=== PATIENT | male | born 1950 | race Hispanic/Latino ===

== ENCOUNTER 2021-09-28 11:17 | Inpatient (IN) | payer MEDICARE ==
--- NOTE | 2021-09-28 11:55 | Consultation ---
History of Present Illness Consult date: 09/28/21 History of present illness: [facility] Consult Note # Demographics Consult Type: Acute Stroke Level 1 (0-4.5 hrs) Patient Location: Emergency Room First Name: Satinder Last Name: Florentin Date of : 1950 Age: 71 Gender: Male Facility: [facility] Time of Initial Page (Eastern Time): 09/28/2021, 11:06 Time of Return Call (Eastern Time): 09/28/2021, 11:07 # HPI Chief Complaint: weakness (focal) History: Patient getting in shower, left leg weak, & fell, without trauma. Last Known Normal: I have collected independent history specific to time last normal or last known well. We have collaborated with the provider and at this time, we have the most current timeline with the information that is available. 9am Duration: constant hours Possible Thrombolytic candidate: not on warfarin or NOACs no intracranial hemorrhage history no recent major surgery Patient reported being non-compliant (not taking) prescribed anticoagulation in setting of atrial fibrillation Quality: weakness # Scores Time of exam and NIHSS ( Time): 09/28/2021, 11:13 Level of Consciousness 1a: [0] = Alert; keenly responsive LOC Questions 1b: [0] = Answers both questions correctly LOC Commands 1c: [0] = Performs both tasks correctly Best Gaze 2: [0] = Normal Visual 3: [0] = No visual loss Facial Palsy 4: [0] = Normal symmetrical movements Motor Arm Left 5a: [2] = Some effort against gravity Motor Arm Right 5b: [0] = No drift Motor Leg Left 6a: [4] = No movement Motor Leg Right 6b: [0] = No drift Limb Ataxia 7: [0] = Absent Sensory 8: [0] = Normal Best Language 9: [0] = No aphasia Dysarthria 10: [0] = Normal Extinction and Inattention 11: [0] = No abnormality NIHSS Total: 6 Modified Chelsie Scale (mRS) pre-stroke: [0] = No Symptoms Modified [place] Scale total: 0 VAN Screening: Negative # Exam SBP: 190 DBP: 107 Mental Status: awake alert and oriented x 3 follows commands Said month was September Language: normal speech Cranial Nerves: Cataracts # ROS Pulmonary: no shortness of breath Cardiovascular: no chest pain # PMH-FH-SH Past Medical History: A-fib Medications: aspirin non-compliant with medications # Data Glucose: [address] personally read by me ( Time): 09/28/2021, 11:[address]: no bleed preliminarily reviewed by me, please refer to radiology read for official reading # Assessment Impression: Ischemic Stroke (Acute) # Plan Thrombolytic/Intervention: IV thrombolytic and possible IA candidate Thrombolytic Dosing: IV alteplase 0.9 mg/kg, max dose 90 mg; 10% of dose given over 1 minute IVP, remaining 90% given as infusion over 1 hour Possible IA Candidate: CTA pending Time IV Thrombolytic Recommended ( Time): 09/28/2021, 11:31 Labs: CBC comprehensive metabolic panel ESR hemoglobin A1c lipid panel troponin TSH urine drug screen ua Imaging: (urgency: STAT): CT Angiogram Head and CT Angiogram Neck AND call back with results if abnormal Imaging: (urgency: routine): MRI Brain without contrast Diagnostic Test: echo without bubble study Therapy/Evaluation: NPO until swallow evaluation PT/OT evaluation speech/swallow consultation Medication: anticoagulation with NOAC start statin with goal of LDL < 70 DVT Prophylaxis: SCD chemical DVT prophylaxis Thrombolytic Administration Recommendations: I reviewed the risks/benefits/alternatives of IV thrombolytic therapy with the patient. They understand there is potential of life threatening hemorrhage from IV thrombolysis. I stated that I believe benefits outweighs risk. They wish to proceed with IV thrombolytic therapy. I have collected independent history specific to time last normal or last known well. We have collaborated with the ED provider and at this time, we have the most current timeline with the information that is available. BP goal< 180/105 for 24hrs post Thrombolytic administration Use Labetolol 10-20mg IV prn or Nicardipine gtt to maintain BP parameters No antiplatelets or anticoagulants for next 24 hrs unless indicated for emergent IA procedure or other life threatening situation Given the current persistent symptoms & reported lack of exclusion conditions, the risks & benefits of thrombolysis were discussed with the patient. Alteplase is FDA-approved for treating acute ischemic strokes & patients generally do better with treatment than without. Other: telemetry monitoring I have discussed my recommendations with the referring provider Disposition: admit Medications and Allergies Active Meds: Active Medications Labetalol HCl (Labetalol 20 Mg/4 Ml Inj) 20 mg IV ONCE ONE Stop: 09/28/21 11:40 Results - Laboratory Findings Abnormal Lab Findings: Abnormal Labs 09/28/21 11:20 POC Glucose 134 H
--- NOTE | 2021-09-28 12:01 | Cat Scan Report ---
CT HEAD WITHOUT CONTRAST INDICATION / CLINICAL INFORMATION: Stroke symptoms. TECHNIQUE: Axial imaging performed from the skull apex through the skull base without the use of cont rast. Sagittal and coronal reformatted images. All CT scans at this location are performed using CT dose reduction for ALARA by means of automated exposure control. COMPARISON: None available. FINDINGS: CEREBRAL PARENCHYMA: No acute parenchymal abnormality is detected. There is moderate diffuse volume l oss and chronic ischemic changes in the white matter. Focal chronic cortical infarct in the right fro ntal lobe measures 2 cm. Focal cortical infarct in the left occipital lobe measures 1.8 cm. HEMORRHAGE: None. EXTRA-AXIAL SPACES: Normal in size and morphology for the patient's age. VENTRICULAR SYSTEM: Normal in size and morphology for the patient's age. MIDLINE SHIFT OR HERNIATION: None. CEREBELLUM / BRAINSTEM: No significant abnormality. CALVARIUM: No significant abnormality. ORBITS: Normal as visualized. PARANASAL SINUSES / MASTOID AIR CELLS: Normal as visualized. SOFT TISSUES of HEAD: No significant abnormality. ADDITIONAL FINDINGS: None. IMPRESSION: No acute intracranial abnormality. Moderate volume loss and chronic white matter changes. Chronic foc al infarcts in the right frontal lobe and left occipital lobe. COMMUNICATION: Time of Communication (ORDERING MACHINE OPERATOR/CDT): 1054 Licensed Practitioner Receiving Report: Dr. Navarrete Signer Name: Burton Harvey Jr, MD Signed: 09/28/2021 11:56 AM Workstation Name: [id number]
--- NOTE | 2021-09-28 12:13 | Cat Scan Report ---
CTA neck without and with intravenous contrast material CLINICAL HISTORY: stroke sx TECHNIQUE: Following acquisition of a timing bolus 0.625 mm thick contiguous axial scans were obtained from aort ic arch to the skull base during rapid bolus intravenous contrast infusion. In addition to evaluation of axial source images multiplanar reconstructions were produced and reviewed for this report. 3 rosalee ne MIP reconstructions were produced and reviewed. Contrast dose report: Omnipaque 350: 100 ml, administered intravenously All CT examinations performed at this facility utilize modulated dose reduction, iterative reconstruc tion or weight-based dosing, as appropriate, to obtain a radiation dose which is as low as can reason ably be achieved. FINDINGS: Thoracic aorta:No abnormalities are identified along the course of the thoracic aorta..The origins of the great vessels have an unremarkable appearance. Brachiocephalic artery, left common carotid arter y origin and left subclavian artery all have an unremarkable appearance. Right carotid artery:No abnormalities are seen along the course of the RCCA, at the right carotid bif urcation or along the cervical portions of the DANIELA. Left carotid artery: No abnormalities are noted along the course of the left common carotid artery, a t the left carotid bifurcation or along the course of the cervical segments of the LICA. Posterior circulation:The vertebral arteries have an unremarkable appearance. Both vertebral arteries contribute to the basilar artery origin. The basilar artery has an unremarkable appearance. The degree of stenosis, if any, is determined utilizing NASCET like criteria. In this case there is no indication of hemodynamically significant stenosis at the carotid bifurcations or elsewhere. Evaluation of the nonvascular soft tissue structures reveal no abnormality. There is no indication of cervical lymphadenopathy. No abnormalities are seen along the course of the airway. Visualized porti ons of the parotid glands and the submandibular salivary glands have a normal appearance. Thyroid gla nd has a normal appearance. Evaluation of the lung apices reveals no evidence of lung nodule or infil trate. Evaluation of the cervical spine is remarkable for widespread cervical spondylosis. Prominent anterio r osteophyte formation is present at multiple levels. Posterior osteophyte is at the C3-4, C5-6 and C 6-7 levels. Facet and uncovertebral arthropathy are observed at multiple levels. There is no indicati on of central canal stenosis. Multifocal neuroforaminal narrowing is observed. IMPRESSION: 1. No indication of hemodynamically significant stenosis at the carotid bifurcations or elsewhere. CTA head with intravenous contrast CLINICAL HISTORY: stroke sx TECHNIQUE: 0.625 mm thick contiguous axial scans were obtained from the skull base to the skull vertex during r apid bolus administration of intravenous contrast material. Multiplanar reconstructions were produced in the coronal and sagittal planes. In addition 3 plane MIP instructions were produced and reviewed for this report. The axial source images and reconstructed images were reviewed for this report. CONTRAST DOSE REPORT: Blank: Contrast dose ml administered intravenously. All CT scans at this location are performed using CT dose reduction for ALARA by means of automated e xposure control. FINDINGS: Internal carotid arteries:Doreen, cavernous, opthalmic, clinoid and supraclinoid segments of the ICAs have an unremarkable appearance. Middle cerebral arteries:Normal and symmetrical M1 segments of the middle cerebral arteries are demon strated. No abnormalities are seen on evaluation of the insular or opercular branches. Anterior cerebral arteries:Bilaterally symmetrical A1 segments are demonstrated. No abnormalities are seen along the course of the A2 segments or their visualized pericallosal branches. An intact anteri or communicating artery is demonstrated. Vertebral arteries:Bilaterally symmetrical vertebral arteries are demonstrated. Both vertebral arteri es contribute to the basilar artery origin. Basilar artery:Basilar artery has an unremarkable appearance. Posterior cerebral arteries:Bilaterally symmetrical posterior cerebral arteries are identified. Post erior communicating arteries are not identified. [place] of [place]:Not intact. see above. Dural sinuses: Dural venous sinuses are well demonstrated on this exam. Large arachnoid granulations (pacchionian granulations) are present in the distal transverse sinuses. There is no evidence of dura l sinus thrombosis. IMPRESSION: 1. no evidence of intracranial stenosis or large vessel occlusion. Signer Name: Ruel Elliott MD Signed: 09/28/2021 12:09 PM Workstation Name: [employer]
[2021-09-28] MEDS ORDERED: ALTEPLASE 100 MG INJ KIT IV ONE ×2 (12:21)
[2021-09-28] MEDS ORDERED: SODIUM CHLORIDE 0.9% 50 ML IVPB IV ONE (12:21)
--- NOTE | 2021-09-28 12:41 | XRay Report ---
CHEST 1 VIEW 09/28/2021 12:07 PM INDICATION / CLINICAL INFORMATION: Dyspnea. COMPARISON: None available. FINDINGS: SUPPORT DEVICES: None. HEART / MEDIASTINUM: Mild cardiomegaly LUNGS / PLEURA: Trace left pleural effusion is identified. There is mild central pulmonary venous con gestion. No infiltrate or pneumothorax. ADDITIONAL FINDINGS: No significant additional findings. IMPRESSION: 1. Minimal CHF Signer Name: Burton Harvey Jr, MD Signed: 09/28/2021 12:36 PM Workstation Name: [id number]
[2021-09-28 12:53] LABS: Amphetamine Screen,Urine Negative; Benzodiazepines Screen,Urine Negative; Cannabinoid Screen,Urine Negative; Cocaine Screen,Urine Negative; Methadone Screen,Urine Negative; Opiate Screen,Urine Negative
[2021-09-28 12:57] LABS: Creatine Kinase MB 4.5 ng/mL (0.0-4.0)
[2021-09-28 13:01] LABS: Alanine Aminotransferase 13 units/L (7-56); Albumin 4.5 g/dL (3.9-5); BUN/Creatinine Ratio 24; Blood Urea Nitrogen 24 mg/dL (9-20); Calcium 9.6 mg/dL (8.4-10.2); Hemolysis Index 6
[2021-09-28 13:23] LABS: Basophils % (Auto) 0.5 % (0.0-1.8); Eosinophils # (Auto) 0.1 K/mm3 (0.0-0.4); Eosinophils % (Auto) 1.3 % (0.0-4.3); Hematocrit 41.7 % (35.5-45.6); Hemoglobin 13.8 gm/dl (11.8-15.2); Lymphocytes # (Auto) 0.7 K/mm3 (1.2-5.4); Lymphocytes % (Auto) 8.6 % (13.4-35.0); Mean Corpuscular HGB Conc 33 % (32-34); Mean Corpuscular Volume 97 fl (84-94); Monocytes # (Auto) 0.3 K/mm3 (0.0-0.8); Platelet Count 191 K/mm3 (140-440); Red Cell Distribution Width 13.8 % (13.2-15.2)
--- NOTE | 2021-09-28 13:28 | Emergency Department Report ---
ED General Adult HPI - General Chief complaint: Neuro Symptoms/Deficit Stated complaint: STROKE PUI?: No Time Seen by Provider: 09/28/21 11:18 Source: patient Mode of arrival: Ambulatory Limitations: No Limitations - History of Present Illness Initial comments: pt had left side weakness during shower today, he fell nut no heasd injury , previous CVs in past not on blood thinners , no recent surgery -: Sudden, hour(s) (2) Location: upper extremity, lower extremity Severity scale (0 -10): 0 Associated Symptoms: weakness. denies: denies other symptoms, confusion, chest pain, diaphoresis, headaches, loss of appetite, shortness of breath, syncope Treatments Prior to Arrival: none - Related Data Allergies Allergy/AdvReac Type Severity Reaction Status Date / Time No Known Allergies Allergy Unverified 09/28/21 11:57 ED Review of Systems ROS: Stated complaint: STROKE Other details as noted in HPI Constitutional: denies: chills, fever Eyes: denies: eye pain, eye discharge, vision change ENT: denies: ear pain, throat pain Respiratory: denies: cough, shortness of breath, wheezing Cardiovascular: denies: chest pain, palpitations Endocrine: no symptoms reported Gastrointestinal: denies: abdominal pain, nausea, diarrhea Genitourinary: denies: urgency, dysuria Musculoskeletal: denies: back pain, joint swelling, arthralgia Skin: denies: rash, lesions Neurological: denies: headache, weakness, paresthesias Psychiatric: denies: anxiety, depression Hematological/Lymphatic: denies: easy bleeding, easy bruising ED Past Medical Hx - Past Medical History Previous Medical History?: No Hx Hypertension: No - Social History Smoking Status: Never Smoker ED Physical Exam - General Limitations: No Limitations General appearance: alert, in no apparent distress - Head Head exam: Present: atraumatic, normocephalic - Eye Eye exam: Present: normal appearance - ENT ENT exam: Present: mucous membranes moist - Neck Neck exam: Present: normal inspection - Respiratory Respiratory exam: Present: normal lung sounds bilaterally. Absent: respiratory distress - Cardiovascular Cardiovascular Exam: Present: regular rate, normal rhythm. Absent: systolic murmur, diastolic murmur, rubs, gallop - GI/Abdominal GI/Abdominal exam: Present: soft, normal bowel sounds - Rectal Rectal exam: Present: deferred - Extremities Exam Extremities exam: Present: normal inspection - Back Exam Back exam: Present: normal inspection - Neurological Exam Neurological exam: Present: alert, oriented X3 - Expanded Neurological Exam Expanded Patient oriented to: Present: person, place, time Speech: Present: fluid speech Upper motor neuron: Brendan Neglect: Abnormal Left Sensory exam: Upper Extremity Light Touch: Abnormal Left, Lower Extremity Pin Prick: Abnormal Left Best Eye Response ([place]): (4) open spontaneously Best Motor Response ([place]): (6) obeys commands Best Verbal Response ([place]): (5) oriented [place] Total: 15 - Psychiatric Psychiatric exam: Present: normal affect, normal mood - Skin Skin exam: Present: warm, dry, intact, normal color. Absent: rash ED Course Vital Signs 09/28/21 09/28/21 09/28/21 11:58 12:10 12:15 Temperature 98.4 F Pulse Rate 87 79 Pulse Rate [ Left Arm] Respiratory 13 Rate Respiratory Rate [Left Arm] Blood Pressure 176/103 Blood Pressure [Left Arm] Blood Pressure 170/91 [Right] O2 Sat by Pulse 100 100 Oximetry O2 Sat by Pulse Oximetry [Left Arm] 09/28/21 09/28/21 09/28/21 12:44 13:06 13:08 Temperature Pulse Rate 82 Pulse Rate [ 78 81 Left Arm] Respiratory 15 Rate Respiratory 11 L 15 Rate [Left Arm] Blood Pressure Blood Pressure 163/100 173/88 [Left Arm] Blood Pressure 173/88 [Right] O2 Sat by Pulse 99 Oximetry O2 Sat by Pulse 99 99 Oximetry [Left Arm] ED Medical Decision Making - Lab Data Result diagrams: 09/28/21 11:57 09/28/21 11:57 - EKG Data -: EKG Interpreted by Nv EKG shows normal: sinus rhythm - EKG Data Interpretation: no acute changes - Radiology Data Radiology results: report reviewed, image reviewed - Medical Decision Making stroke protocol on arrival , head ct negative NIHSS score of 6 , TPA after BP control labetalol given , symtpoms imrpoving after TPA will admit , CTA negative for LVO Critical Care Time: Yes Critical care time in (mins) excluding proc time.: 55 Critical care attestation.: If time is entered above; I have spent that time in minutes in the direct care of this critically ill patient, excluding procedure time. ED Disposition Clinical Impression: CVA (cerebral vascular accident), Left-sided weakness Disposition: 09 ADMITTED INPATIENT Is pt being admited?: Yes Does the pt Need Aspirin: No Condition: Critical
[2021-09-28 13:36] LABS: INR 0.84 (0.87-1.13)
[2021-09-28 13:37] LABS: Partial Thromboplastin Time 28.6 Sec. (24.2-36.6); Thrombin Time 20.3 Sec. (15.1-19.6)
[2021-09-28] MEDS ORDERED: ALBUTEROL 2.5 MG/3 ML NEBU IH PRN (15:04)
[2021-09-28] MEDS ORDERED: PROMETHAZINE 25 MG RECT SUPP PR PRN (15:04)
[2021-09-28] MEDS ORDERED: ONDANSETRON 4 MG/2 ML INJ IV PRN (15:04)
[2021-09-28] MEDS ORDERED: ACETAMINOPHEN 325 MG TAB PO PRN (15:04)
[2021-09-28] MEDS ORDERED: METOCLOPRAMIDE 10 MG TAB PO PRN (15:04)
[2021-09-28] MEDS ORDERED: HYDROmorphone 0.5 MG/0.5 ML INJ IV PRN (15:04)
[2021-09-28] MEDS ORDERED: MAGNESIUM HYDROXIDE (MOM) ORAL LIQD UDC PO PRN (15:04)
[2021-09-28] MEDS ORDERED: oxyCODONE /ACETAMINOPHEN 5-325MG TAB PO PRN (15:04)
--- NOTE | 2021-09-28 15:04 | History and Physical Report ---
History of Present Illness Chief complaint: Mild left side is weak History of present illness: 71 YO Male with CVA presents ED for evaluation. Patient reports "my left side is weak". Patient states that he was in his usual state of health upon awakening from sleep this morning around 8 AM. Patient states that he was in the restroom conducting personal hygiene when he felt a sudden onset of left- sided weakness. Patient was unable to move his left side and subsequently fell to the ground. EMS was notified and upon arrival the patient was found to be in distress with a focal neurologic deficit. A code stroke was called and the patient was transported to [facility] for further care and evaluation of the aforementioned symptoms. The patient was seen and evaluated emergency department. All lab and imaging studies reviewed. Patient found to have clinical symptoms consistent with CVA and was within the therapeutic window for tPA. tPA was administered with in the emergency department with improvement in symptoms. Patient mated to ICU due to increased risk of worsening symptoms after medical stabilization. Critical care team consulted in ED. Patient denies fever, chills, chest pain, palpitation, adductive cough, skin rash, recent contact, known exposure to COVID-19. No prior admission for review. No medication listed at time of admission for reconciliation. Advanced care planning conducted in ED. Past History Past Medical History: stroke Past Surgical History: No surgical history, Other (Reviewed) Social history: . denies: smoking, alcohol abuse, prescription drug abuse Family history: hypertension Medications and Allergies Allergies Allergy/AdvReac Type Severity Reaction Status Date / Time No Known Allergies Allergy Unverified 09/28/21 11:57 Review of Systems Constitutional: no weight loss, no weight gain Ears, nose, mouth and throat: no ear pain, no tinnitis, no nose pain, no nasal discharge Cardiovascular: no chest pain, no palpitations, no rapid/irregular heart beat Respiratory: no cough, no cough with sputum, no hemoptysis, no dyspnea on exertion Gastrointestinal: no abdominal pain, no nausea, no vomiting, no constipation, no change in bowel habits, no hematemesis Genitourinary Male: no dysuria, no hematuria, no flank pain, no discharge, no urinary frequency Rectal: no pain, no incontinence, no bleeding Musculoskeletal: no neck stiffness, no arm numbness/tingling, no low back pain, no shooting leg pain Integumentary: no rash, no pruritis, no sores, no wounds, no jaundice, no blisters Neurological: paralysis, weakness, ataxia, balance difficulties, gait dysfunction, motor disturbance, no numbness, no seizures, no syncope Psychiatric: no anxiety, no memory loss, no sleep disturbances, no hypersomnia, no change in appetite Endocrine: no cold intolerance, no heat intolerance, no polyphagia, no excessive thirst, no polydipsia, no nocturia, no flushing Hematologic/Lymphatic: no easy bruising, no easy bleeding Allergic/Immunologic: no urticaria, no allergic rhinitis, no wheezing Exam - Constitutional Vitals: Temp Pulse Resp BP Pulse Ox 98.4 F 80 14 158/101 100 09/28/21 12:10 09/28/21 13:42 09/28/21 13:42 09/28/21 13:42 09/28/21 13:42 General appearance: Present: mild distress - EENT Eyes: Present: PERRL ENT: hearing intact, clear oral mucosa - Neck Neck: Present: supple, normal ROM - Respiratory Respiratory effort: normal Respiratory: bilateral: CTA - Cardiovascular Heart Sounds: Present: S1 & S2. Absent: rub, click - Extremities Extremities: pulses symmetrical, No edema Peripheral Pulses: within normal limits - Abdominal General gastrointestinal: Present: soft, non-tender, non-distended, normal bowel sounds Male genitourinary: Present: normal - Integumentary Integumentary: Present: clear, warm, dry - Musculoskeletal Musculoskeletal: gait normal, strength equal bilaterally - Psychiatric Psychiatric: appropriate mood/affect, intact judgment & insight - Neurologic Neurologic: focal deficits, no moves all extremities, no gait normal HEART Score - HEART Score Troponin: Troponin T < 0.010 ng/mL (0.00-0.029) 09/28/21 11:57 Results - Labs CBC & Chem 7: 09/28/21 11:57 09/28/21 11:57 Labs: Abnormal lab results 09/28/21 09/28/21 09/28/21 Range/Units 11:20 11:57 11:57 MCV 97 H (84-94) fl Lymph % (Auto) 8.6 L (13.4-35.0) % Lymph # (Auto) 0.7 L (1.2-5.4) K/mm3 Seg Neutrophils % 85.6 H (40.0-70.0) % INR 0.84 L (0.87-1.13) Thrombin Time 20.3 H (15.1-19.6) Sec. BUN (9-20) mg/dL Glucose (75-100) mg/dL POC Glucose 134 H (70-105) mg/dL CK-MB (CK-2) (0.0-4.0) ng/mL 09/28/21 Range/Units 11:57 MCV (84-94) fl Lymph % (Auto) (13.4-35.0) % Lymph # (Auto) (1.2-5.4) K/mm3 Seg Neutrophils % (40.0-70.0) % INR (0.87-1.13) Thrombin Time (15.1-19.6) Sec. BUN 24 H (9-20) mg/dL Glucose 157 H (75-100) mg/dL POC Glucose (70-105) mg/dL CK-MB (CK-2) 4.5 H (0.0-4.0) ng/mL Assessment and Plan - Patient Problems (1) CVA (cerebral vascular accident) Status: Acute Plan to address problem: CVA protocol: CTA, neuro check, seizure precautions, physical therapy consulted, Occupational Therapy consulted, speech therapy consulted, teleneurology consulted, patient administered tPA in the emergency department. Patient admitted to ICU, critical care team consulted, antiplatelet therapy may be resumed 24 hours after tPA, lipid panel, statin therapy. The high probability of a clinically significant, sudden or life threatening deterioration of the [neuro,] system(s) required my full and direct attention, intervention and personal management. The aggregate critical care time was [95] minutes. This time is in addition to time spent performing reported procedures but includes the following: [x] Data Review and interpretation [x] Patient assessment and monitoring of vital signs [x] Documentation [x] Medication orders and management (2) Left hemiparesis Status: Acute Plan to address problem: Physical therapy consulted, supportive care. (3) DVT prophylaxis Status: Acute Plan to address problem: SCDs bilateral lower extremities while in bed (4) Advance care planning Status: Acute Plan to address problem: Disease education conducted, care plan discussed, diagnoses discussed, prognosis discussed, patient is full code. Patient knowledges understanding agreement with care plan, +30 minutes. (5) Preventative health care Status: Acute Plan to address problem: Patient counseled on risk factor reduction, low-cholesterol diet, outpatient follow-up with primary care physician for all age and risk factor appropriate screening test. +30 minutes.
[2021-09-28 15:07] LABS: Color,Urine Yellow (Yellow)
[2021-09-28 15:08] LABS: Bilirubin,Urine Negative (Negative); Protein,Urine <15 mg/dL mg/dL (Negative)
[2021-09-28 15:09] LABS: Blood,Urine 2+ (Negative)
--- NOTE | 2021-09-28 17:31 | Vascular Lab Report ---
DUPLEX DOPPLER ULTRASOUND CAROTID, BILATERAL INDICATION / CLINICAL INFORMATION: stroke. COMPARISON: None available. FINDINGS: RIGHT CAROTID: - PLAQUE ESTIMATE (%): < 50% - CCA velocity: 80 cm/sec. - ICA peak systolic velocity: 78 cm/sec. - ICA/CCA PSV Ratio: Less than 2.0 Right Vertebral Artery: Antegrade flow. LEFT CAROTID: - PLAQUE ESTIMATE (%): < 50% - CCA velocity: 82 cm/sec. - ICA peak systolic velocity: 83 cm/sec. - ICA/CCA PSV Ratio: Less than 2.0 Left Vertebral Artery: Antegrade flow. IMPRESSION: 1. Right Internal Carotid Artery: Less than 50% diameter stenosis. 2. Left Internal Carotid Artery: Less than 50% diameter stenosis. Velocity criteria are extrapolated from diameter data as defined by the Society of Radiologists in Ul trasound Consensus Conference, Radiology 2003; 229;340-346. NO STENOSIS (NORMAL) - Plaque = none; ICA PSV < 125 cm/sec; ICA/CCA PSV Ratio < 2.0 <50% STENOSIS - Plaque < 50%; ICA PSV < 125 cm/sec; ICA/CCA PSV Ratio < 2.0 50-69% STENOSIS - Plaque > 50%; ICA PSV = 125-230 cm/sec; ICA/CCA PSV Ratio = 2.0-4.0 >70% BUT <100% STENOSIS - Plaque > 50%; ICA PSV > 230 cm/sec; ICA/CCA PSV Ratio > 4.0 NEAR OCCLUSION - Plaque = visible lumen; ICA PSV = high/low/none; ICA/CCA PSV Ratio = variable TOTAL OCCLUSION - Plaque = no lumen; ICA PSV = none; ICA/CCA PSV Ratio = N/A Signer Name: Andriy Altman MD Signed: 09/28/2021 5:27 PM Workstation Name: [id number]
[2021-09-29 05:10] LABS: Chol/HDL Ratio 3.15 %
--- NOTE | 2021-09-29 08:26 | Consultation ---
History of Present Illness Consult date: 09/29/21 Reason for Consult: CVA Chief complaint: Left-sided Weakness History of present illness: 71 yo male with afib (not on anticoagulation), htn, dm, dyslipidemia, bilateral cataracts, who woke up yesterday morning feeling fine but while taking a shower, suffered acute onset of left-sided weakness associated with a slight fall (w/o trauma). He came off those coumadin and aspirin 2 months ago due to side effects. He was evaluated by telestroke neurology and IV-TPA given. Patient started to notice improvement in his symptoms post-TPA. Past History Past Medical History: atrial fib, stroke Past Surgical History: No surgical history, Other (Reviewed) Social history: . denies: smoking, alcohol abuse, prescription drug abuse Family history: hypertension Medications and Allergies Allergies Allergy/AdvReac Type Severity Reaction Status Date / Time No Known Allergies Allergy Unverified 09/28/21 11:57 Active Meds: Active Medications Acetaminophen (Acetaminophen 325 Mg Tab) 650 mg PO Q4H PRN PRN Reason: Pain, Mild (1-3) Albuterol (Albuterol 2.5 Mg/3 Ml Nebu) 2.5 mg IH Q3H PRN PRN Reason: Shortness Of Breath Aspirin (Aspirin 325 Mg Tab) 325 mg PO QDAY [facility] Atorvastatin Calcium (Atorvastatin 40 Mg Tab) 40 mg PO QHS [facility] Last Admin: 09/29/21 00:00 Dose: Not Given Bisacodyl (Bisacodyl 10 Mg Rect Supp) 10 mg NV QDAY PRN PRN Reason: Constipation Enoxaparin Sodium (Enoxaparin 40 Mg/0.4 Ml Inj) 40 mg SUB-Q QHS [facility]; Protocol Famotidine (Famotidine 20 Mg Tab) 20 mg PO QDAY [facility] Hydromorphone HCl (Hydromorphone 0.5 Mg/0.5 Ml Inj) 0.5 mg IV Q23H PRN PRN Reason: Pain , Severe (7-10) Magnesium Hydroxide (Magnesium Hydroxide (Mom) Oral Liqd Udc) 30 ml PO Q4H PRN PRN Reason: Constipation Metoclopramide HCl (Metoclopramide 10 Mg Tab) 10 mg PO Q6H PRN PRN Reason: Nausea And Vomiting Ondansetron HCl (Ondansetron 4 Mg/2 Ml Inj) 4 mg IV Q8H PRN PRN Reason: Nausea And Vomiting Oxycodone/Acetaminophen (Oxycodone /Acetaminophen 5-325mg Tab) 1 tab PO Q16H PRN PRN Reason: Pain, Moderate (4-6) Promethazine HCl (Promethazine 25 Mg Rect Supp) 25 mg NV Q6H PRN PRN Reason: Nausea And Vomiting Sodium Chloride (Sodium Chloride 0.9% 10 Ml Flush Syringe) 10 ml IV PRN PRN PRN Reason: LINE FLUSH Review of Systems All systems: negative (as per hpi;) Physical Examination - Vital Signs Vital Signs: Vital Signs Pulse Ox 99 09/28/21 11:46 - Physical Exam Narrative exam: Gen: nad, well-nourished; Head: normocephalic; Eyes: no gaze deviation; no ptosis; ENT: normal vocalization; CVS: warm and well-perfused; Pulm: no respiratory distress; GI: appears non-distended; Ext: no cyanosis appreciated at distal extremities; Skin: no acute rash at distal extremities; Heme: no pathologic ecchymosis appreciated at distal extremities; Neuro: alert, oriented to name, age, month, year, surroundings, no dysarthria, no aphasia, CN 2 - PERRL, visual chaney grossly intact, CN 3, 4, 6 - EOMI, CN 5 - facial sensation symmetric to light touch, CN 7 - facial movement symmetric, CN 8 - hearing grossly intact, CN 9, 10 - uvula midline, CN 11 symmetric shoulder movement, CN 12 - tongue midline; Motor - at least 4+/5 at right exts; at least 4-/5 at left exts w/ plantar flexion weaker than ankle dorsiflexion; Sensory - light touch symmetric, Cerebellar - fnf /hts intact on right with some minor limits with the left fnf due to weakness, Gait - deferred secondary to fall risk; NIHSS (1a.) Level of Consciousness:0 (1b.) LOC Questions:0 (1c.) LOC Commands:0 (2.) Best Gaze:0 (3.) Visual:0 (4.) Facial Palsy:0 (5a.) Motor Arm, Left:1 (5b.) Motor Arm, Right:0 (6a.) Motor Leg, Left:1 (6b.) Motor Leg, Right:0 (7.) Limb Ataxia:0 (8.) Sensory:0 (9.) Best Language:0 (10.) Dysarthria:0 (11.) Extinction and Inattention:0 NIHSS Total Score: 2 Results - Laboratory Findings CBC and BMP: 09/28/21 11:57 09/28/21 11:57 Abnormal Lab Findings: Abnormal Labs 09/28/21 09/28/21 09/28/21 11:20 11:57 11:57 MCV 97 H Lymph % (Auto) 8.6 L Lymph # (Auto) 0.7 L Seg Neutrophils % 85.6 H INR 0.84 L Thrombin Time 20.3 H BUN Glucose POC Glucose 134 H CK-MB (CK-2) 09/28/21 11:57 MCV Lymph % (Auto) Lymph # (Auto) Seg Neutrophils % INR Thrombin Time BUN 24 H Glucose 157 H POC Glucose CK-MB (CK-2) 4.5 H Assessment and Plan 71 yo male with afib (not on anticoagulation), htn, dm, dyslipidemia, bilateral cataracts, who woke up yesterday morning feeling fine but while taking a shower, suffered acute onset of left-sided weakness associated with a slight fall (w/o trauma). Post-TPA. 1. Acute Ischemic Stroke: post-TPA protocol; avoid blood thinners for the first 24 hrs and if repeat imaging at 24-hrs is normal, then initiate Plavix 75 mg PO qday, (pt has indigestion w/ aspirin); MRI Brain w/o contrast, TTEcho, confirm TSH/Covid-19/UDS, telemetry, NIHSS q4 hours; SBP goal 160-180 mmHg and DBP 80-105 mmHg for now. Statin therapy for a goal LDL of 70, when patient passes swallow evaluation. PT/OT/ST/Swallow evaluation. Long-term risk-factor modification, including a strict diet/exercise regimen for secondary stroke prophylaxis. Stroke education prior to discharge. 2. Afib - long-term anticoagulation (?valvular afib vs. non-valvular afib - cardiology input needed) for secondary stroke prophylaxis, if no contraindications; otherwise, recommend the Watchman device. 3. Hypertension - post-TPA protocol parameters. 4. DM - maintain euglycemia. 5. Dyslipidemia - goal LDL of 70 w/ statin therapy if no contraindications. 6. Acute Left Hemiparesis - pt/ot evaluation/monitoring. 7. Unsteady Gait - pt/ot evaluation/monitoring. Glenn Fragoso MD Neurology [id number]
--- NOTE | 2021-09-29 09:18 | Consultation ---
History of Present Illness Consult date: 09/29/21 Requesting physician: JONELLE LOU Reason for consult: other (Acute CVA s/p tPA) History of present illness: This is a 71-year-old male with known past medical history of HTN, DM, HLD, bilateral cataracts, and paroxysmal afib noncompliant with AC, and previous stroke admitted for Acute CVA s/p tPA. Critical care consult was placed for monitoring post tPA. Patient seen and examined. Vitals, labs, medications, chart and imaging reviewed. Has emotional lability with episodes when he is teary. Past History Past Medical History: atrial fib, stroke Past Surgical History: No surgical history, Other (Reviewed) Social history: . denies: smoking, alcohol abuse, prescription drug abuse Family history: hypertension Medications and Allergies Allergies Allergy/AdvReac Type Severity Reaction Status Date / Time No Known Allergies Allergy Unverified 09/28/21 11:57 Active Meds: Active Medications Acetaminophen (Acetaminophen 325 Mg Tab) 650 mg PO Q4H PRN PRN Reason: Pain, Mild (1-3) Albuterol (Albuterol 2.5 Mg/3 Ml Nebu) 2.5 mg IH Q3H PRN PRN Reason: Shortness Of Breath Aspirin (Aspirin 325 Mg Tab) 325 mg PO QDAY [facility] Atorvastatin Calcium (Atorvastatin 40 Mg Tab) 40 mg PO QHS [facility] Last Admin: 09/29/21 00:00 Dose: Not Given Bisacodyl (Bisacodyl 10 Mg Rect Supp) 10 mg VA QDAY PRN PRN Reason: Constipation Enoxaparin Sodium (Enoxaparin 40 Mg/0.4 Ml Inj) 40 mg SUB-Q QHS [facility]; Protocol Famotidine (Famotidine 20 Mg Tab) 20 mg PO QDAY [facility] Hydromorphone HCl (Hydromorphone 0.5 Mg/0.5 Ml Inj) 0.5 mg IV Q23H PRN PRN Reason: Pain , Severe (7-10) Magnesium Hydroxide (Magnesium Hydroxide (Mom) Oral Liqd Udc) 30 ml PO Q4H PRN PRN Reason: Constipation Metoclopramide HCl (Metoclopramide 10 Mg Tab) 10 mg PO Q6H PRN PRN Reason: Nausea And Vomiting Ondansetron HCl (Ondansetron 4 Mg/2 Ml Inj) 4 mg IV Q8H PRN PRN Reason: Nausea And Vomiting Oxycodone/Acetaminophen (Oxycodone /Acetaminophen 5-325mg Tab) 1 tab PO Q16H PRN PRN Reason: Pain, Moderate (4-6) Promethazine HCl (Promethazine 25 Mg Rect Supp) 25 mg VA Q6H PRN PRN Reason: Nausea And Vomiting Sodium Chloride (Sodium Chloride 0.9% 10 Ml Flush Syringe) 10 ml IV PRN PRN PRN Reason: LINE FLUSH Review of Systems Constitutional: no weight loss, no weight gain, no fever, no chills Eyes: bilateral: other (cataracts) Cardiovascular: no chest pain, no orthopnea, no palpitations, no edema, no syncope, no shortness of breath Respiratory: no cough, no cough with sputum, no hemoptysis, no shortness of breath, no dyspnea on exertion Gastrointestinal: no nausea, no vomiting, no diarrhea Genitourinary Male: no dysuria, no hematuria, no nocturia Musculoskeletal: leg numbness/tingling Neurological: paralysis, weakness, numbness, no head injury Physical Examination Vital signs: Vital Signs Pulse Ox 99 09/28/21 11:46 General appearance: no acute distress, alert Eyes: non-icteric ENT: oropharynx moist Neck: supple, no lymphadenopathy, no JVD Effort: normal Ascultation: Bilateral: clear, diminished breath sounds Cardiovascular: regular rate and rhythm, other (S1,S2) Gastrointestinal: normoactive bowel sounds, soft, non-tender Integumentary: normal Extremities: no cyanosis, no edema, pink and warm, pulses normal normal mental status, pupils equal and round, CN II-XII normal, other (Power grade 3/5 left lower extremity, Power grade 4/5 left upper extremity) mood appropriate, tearful Results - Laboratory Findings CBC and BMP: 09/30/21 04:18 09/30/21 04:18 PT/INR, D-dimer PT 12.6 Sec. (12.2-14.9) 09/28/21 11:57 INR 0.84 (0.87-1.13) L 09/28/21 11:57 Abnormal lab findings: Abnormal Labs 09/28/21 09/28/21 09/28/21 11:20 11:57 11:57 MCV 97 H Lymph % (Auto) 8.6 L Lymph # (Auto) 0.7 L Seg Neutrophils % 85.6 H INR 0.84 L Thrombin Time 20.3 H BUN Glucose POC Glucose 134 H CK-MB (CK-2) 09/28/21 09/29/21 11:57 08:15 MCV Lymph % (Auto) Lymph # (Auto) Seg Neutrophils % INR Thrombin Time BUN 24 H Glucose 157 H POC Glucose 119 H CK-MB (CK-2) 4.5 H - Diagnostic Findings Chest x-ray: image reviewed (No acute pulmonary disease) Assessment and Plan CVA (Cerebral Vascular Accident) s/p tPA Left Hemiparesis H/o Paroxysmal Atrial Fibrillation Hypertension Hyperlipidemia Type 2 Diabetes Mellitus with Hyperglycemia -MRI Brain without contrast today -Echo -NPO until swallow evaluation -PT/OT to evaluate and treat -Start statin with goal of LDL < 70 -SCD; chemical DVT prophylaxis, after 24 hours of tPA administration -BP goal< 180/105 for 24hrs post Thrombolytic administration - Labetolol 10-20mg IV prn or Nicardipine infusion to maintain BP parameters -No antiplatelets or anticoagulants for 24 hrs post tPA administration -Accucheck with glycemic control, target blood glucose to keep glucose 140- 180mg/dL -Discussed the need for compliance to recommended therapies. Patient had been off Coumadin for over 2 months. -Secondary stroke prophylaxis -Replete electrolytes as clinically indicated- keep potassium greater than 3.5, Magnesium 2 The high probability of a clinically significant, sudden or life threatening deterioration of the neurology and cardiovascular systems required my full and direct attention, intervention and personal management. The aggregate critical care time was [34] minutes. This time is in addition to time spent performing reported procedures but includes the following: [x] Data Review and interpretation [x] Patient assessment and monitoring of vital signs [x] Documentation [x] Medication orders and management
[2021-09-29] MEDS ORDERED: ASPIRIN 325 MG TAB PO SCH (10:00)
[2021-09-29] MEDS: FAMOTIDINE 20 MG TAB PO SCH (10:10)
--- NOTE | 2021-09-29 11:14 | Progress Note ---
<NUNU MASON - Last Filed: 09/29/21 16:51> Assessment and Plan Assessment and plan: This is a 71-year-old male with known past medical history of HTN, DM, HLD, bilateral cataracts, and paroxysmal afib noncompliant with AC, and previous stroke admitted for Acute CVA s/p tPA Hospital Course to Date: 09/29: Symptoms improved post IV tPA, still with mild left-sided weakness. VSS. Plan for repeat CT head/brain At 1500, 24hrs post tPA. 2D echo and MRI brain pending. Neurology recommendations noted and appreciated. If CT head stable will initiate ASA and VTE proph in the am. PT/OT/Speech consulted. Assessment and Plan #CVA (Cerebral Vascular Accident) s/p tPA #Left Hemiparesis - Presented with sudden onsent eft-side weakness and paralysis - TeleNeurology saw patient in the ED, S/p tPA - Symptoms improved post tPA, remains with mild left-sided weakness - Plan for repeat CT head/brain At 1500 24hrs post tPA - MRI brain and 2D Echo pending - Lipid panel noted, hgbA1c ordered - Statin initiated - Neurology consulted, appreciated recommendations - ASA and prophy AC to start tomorrow, 24hrs post TPA - Continue Neuro check per protocol - PT/OT/Speech ordered - Aspiration and Fall precautions - Of note, patient has history of coumadin was on coumadin at home. - Per patient he needs cataracts surgery and he can't get it due to AC, so he stop taking his coumadin without coordinating with his MDs. Per patient he has not taking his AC for at least 2 months #H/o Paroxysmal Atrial Fibrillation #Hypertension & Hyperlipidemia - SR noted on the monitor, HR in the 70 -80, BP stable - Allow permissive HTN for first 24hrs, hold antihypertensive for now - Continue blood pressure monitor per protocol, BP goal SBP less than 190 - Noncompliant with coumadin, per patient he has not taking meds for at least 2 months - Resume home coumadin once okayed by Neurology - Plan to initiate ASA and VTE proph tomorrow #Type 2 Diabetes Mellitus with Hyperglycemia - HgbA1c pending - BG check and SSI ACHS - Avoid hypoglycemia #GI/DVT Prophylaxis - PPI- Pepcid - SCDs bilateral lower extremities while in bed #Advance Care Planning - Disease education data, care plan, diagnoses, and prognosis were discussed with patient at the bedside. Patient is a FULL code. Patient acknowledged understanding and agreed with current care plan. The high probability of a clinically significant, sudden or life threatening deterioration of the [multiple] system(s) required my full and direct attention, intervention and personal management. The aggregate critical care time was [60] minutes. This time is in addition to time spent performing reported procedures but includes the following: [x] Data Review and interpretation [x] Patient assessment and monitoring of vital signs [x] Documentation [x] Medication orders and management Disposition Plan: ICU Total Time Spent with Patient (Minutes): 60 History Interval history: Patient seen and examined at the bedside. Fully AAO, on RA, denied any pain nor any discomfort at this time. Left-sided weakness noted, but per patient symptoms has improved a lot. He couldn't move his left side before tPA. SR noted on the monitor, HR in the 70-80, VSS. JASON overnight Hospitalist Physical - Constitutional Vitals: Temp Pulse Resp BP Pulse Ox 98 F 81 11 L 152/101 97 09/29/21 08:00 09/29/21 09:46 09/29/21 09:46 09/29/21 09:46 09/29/21 11:11 General appearance: Present: no acute distress, well-nourished - EENT Eyes: Present: PERRL, EOM intact ENT: hearing intact, clear oral mucosa - Neck Neck: Present: normal ROM - Respiratory Respiratory effort: normal Respiratory: bilateral: CTA - Cardiovascular Rhythm: regular Heart Sounds: Present: S1 & S2 - Extremities Extremities: no ischemia, pulses intact, pulses symmetrical Peripheral Pulses: within normal limits - Abdominal General gastrointestinal: soft, non-distended, normal bowel sounds - Integumentary Integumentary: Present: clear, warm, dry - Psychiatric Psychiatric: appropriate mood/affect, cooperative - Neurologic Neurologic: CNII-XII intact, moves all extremities (Left-sided weakness present) - Allied Health Allied health notes reviewed: nursing, case management HEART Score - HEART Score Troponin: Troponin T < 0.010 ng/mL (0.00-0.029) 09/28/21 11:57 Results - Labs CBC & Chem 7: 09/28/21 11:57 09/28/21 11:57 Labs: Laboratory Last Values WBC 8.3 K/mm3 (4.5-11.0) 09/28/21 11:57 RBC 4.30 M/mm3 (3.65-5.03) 09/28/21 11:57 Hgb 13.8 gm/dl (11.8-15.2) 09/28/21 11:57 Hct 41.7 % (35.5-45.6) 09/28/21 11:57 MCV 97 fl (84-94) H 09/28/21 11:57 MCH 32 pg (28-32) 09/28/21 11:57 MCHC 33 % (32-34) 09/28/21 11:57 RDW 13.8 % (13.2-15.2) 09/28/21 11:57 Plt Count 191 K/mm3 (140-440) 09/28/21 11:57 Lymph % (Auto) 8.6 % (13.4-35.0) L 09/28/21 11:57 [place] % (Auto) 4.0 % (0.0-7.3) 09/28/21 11:57 Eos % (Auto) 1.3 % (0.0-4.3) 09/28/21 11:57 Baso % (Auto) 0.5 % (0.0-1.8) 09/28/21 11:57 Lymph # (Auto) 0.7 K/mm3 (1.2-5.4) L 09/28/21 11:57 [place] # (Auto) 0.3 K/mm3 (0.0-0.8) 09/28/21 11:57 Eos # (Auto) 0.1 K/mm3 (0.0-0.4) 09/28/21 11:57 Baso # (Auto) 0.0 K/mm3 (0.0-0.1) 09/28/21 11:57 Seg Neutrophils % 85.6 % (40.0-70.0) H 09/28/21 11:57 Seg Neutrophils # 7.1 K/mm3 (1.8-7.7) 09/28/21 11:57 PT 12.6 Sec. (12.2-14.9) 09/28/21 11:57 INR 0.84 (0.87-1.13) L 09/28/21 11:57 APTT 28.6 Sec. (24.2-36.6) 09/28/21 11:57 Thrombin Time 20.3 Sec. (15.1-19.6) H 09/28/21 11:57 Sodium 141 mmol/L (137-145) 09/28/21 11:57 Potassium 3.8 mmol/L (3.6-5.0) 09/28/21 11:57 Chloride 102.0 mmol/L (98-107) 09/28/21 11:57 Carbon Dioxide 23 mmol/L (22-30) 09/28/21 11:57 Anion Gap 20 mmol/L 09/28/21 11:57 BUN 24 mg/dL (9-20) H 09/28/21 11:57 Creatinine 1.0 mg/dL (0.8-1.3) 09/28/21 11:57 Estimated GFR > 60 ml/min 09/28/21 11:57 BUN/Creatinine Ratio 24 % 09/28/21 11:57 Glucose 157 mg/dL (75-100) H 09/28/21 11:57 POC Glucose 119 mg/dL (70-105) H 09/29/21 08:15 Calcium 9.6 mg/dL (8.4-10.2) 09/28/21 11:57 Total Bilirubin 0.70 mg/dL (0.1-1.2) 09/28/21 11:57 AST 18 units/L (5-40) 09/28/21 11:57 ALT 13 units/L (7-56) 09/28/21 11:57 Alkaline Phosphatase 74 units/L (35-129) 09/28/21 11:57 Total Creatine Kinase 136 units/L (55-170) 09/28/21 11:57 Total Creatine Kinase 137 units/L (55-170) 09/28/21 11:57 CK-MB (CK-2) 4.5 ng/mL (0.0-4.0) H 09/28/21 11:57 CK-MB (CK-2) Rel Index 3.3 (0-4) 09/28/21 11:57 Troponin T < 0.010 ng/mL (0.00-0.029) 09/28/21 11:57 NT-Pro-B Natriuret Pep 781.0 pg/mL (0-900) 09/28/21 11:57 Total Protein 7.2 g/dL (6.3-8.2) 09/28/21 11:57 Albumin 4.5 g/dL (3.9-5) 09/28/21 11:57 Albumin/Globulin Ratio 1.7 % 09/28/21 11:57 Triglycerides 136 mg/dL (2-149) 09/29/21 04:16 Cholesterol 164 mg/dL (50-199) 09/29/21 04:16 LDL Cholesterol Direct 96 mg/dL (50-130) 09/29/21 04:16 HDL Cholesterol 52 mg/dL (40-59) 09/29/21 04:16 Cholesterol/HDL Ratio 3.15 % 09/29/21 04:16 Urine Color Yellow (Yellow) 09/28/21 12:10 Urine Turbidity Clear (Clear) 09/28/21 12:10 Urine pH 5.0 (5.0-7.0) 09/28/21 12:10 Ur Specific [place] 1.015 (1.003-1.030) 09/28/21 12:10 Urine Protein <15 mg/dl mg/dL (Negative) 09/28/21 12:10 Urine Glucose (UA) 1.015 mg/dL (Negative) 09/28/21 12:10 Urine Ketones Negative mg/dL (Negative) 09/28/21 12:10 Urine Blood 2+ (Negative) 09/28/21 12:10 Urine Nitrite Negative (Negative) 09/28/21 12:10 Urine Bilirubin Negative (Negative) 09/28/21 12:10 Urine Urobilinogen 0.0 mg/dL (<2.0) 09/28/21 12:10 Ur Leukocyte Esterase Negative (Negative) 09/28/21 12:10 Urine WBC (Auto) 2.0 /HPF (0.0-6.0) 09/28/21 12:10 Urine RBC (Auto) 1.0 /HPF (0.0-6.0) 09/28/21 12:10 U Epithel Cells (Auto) 1.0 /HPF (0-13.0) 09/28/21 12:10 Urine Opiates Screen Negative 09/28/21 12:10 Urine Methadone Screen Negative 09/28/21 12:10 Ur Barbiturates Screen Negative 09/28/21 12:10 Ur Phencyclidine Scrn Negative 09/28/21 12:10 Ur Amphetamines Screen Negative 09/28/21 12:10 U Benzodiazepines Scrn Negative 09/28/21 12:10 Urine Cocaine Screen Negative 09/28/21 12:10 U Marijuana (THC) Screen Negative 09/28/21 12:10 Drugs of Abuse Note Disclamer 09/28/21 12:10 Active Medications - Current Medications Current Medications: Generic Name Dose Route Start Last Admin Trade Name Freq PRN Reason Stop Dose Admin Acetaminophen 650 mg 09/28/21 15:04 Acetaminophen 325 Mg Tab PO Q4H PRN Pain, Mild (1-3) Albuterol 2.5 mg 09/28/21 15:04 Albuterol 2.5 Mg/3 Ml Nebu IH Q3H PRN Shortness Of Breath Aspirin 325 mg 09/30/21 10:00 Aspirin 325 Mg Tab PO QDAY [facility] Atorvastatin Calcium 40 mg 09/28/21 22:00 09/29/21 00:00 Atorvastatin 40 Mg Tab PO Not Given QHS [facility] Bisacodyl 10 mg 09/28/21 15:04 Bisacodyl 10 Mg Rect Supp [place] QDAY PRN Constipation Enoxaparin Sodium 40 mg 09/29/21 22:00 Enoxaparin 40 Mg/0.4 Ml Inj SUB-Q QHS [facility] Protocol Famotidine 20 mg 09/29/21 10:00 09/29/21 10:10 Famotidine 20 Mg Tab PO 20 mg QDAY [facility] Administration Hydromorphone HCl 0.5 mg 09/28/21 15:04 Hydromorphone 0.5 Mg/0.5 Ml Inj IV Q23H PRN Pain , Severe (7-10) Magnesium Hydroxide 30 ml 09/28/21 15:04 Magnesium Hydroxide (Mom) Oral Liqd Udc PO Q4H PRN Constipation Metoclopramide HCl 10 mg 09/28/21 15:04 Metoclopramide 10 Mg Tab PO Q6H PRN Nausea And Vomiting Ondansetron HCl 4 mg 09/28/21 15:04 Ondansetron 4 Mg/2 Ml Inj IV Q8H PRN Nausea And Vomiting Oxycodone/Acetaminophen 1 tab 09/28/21 15:04 Oxycodone /Acetaminophen 5-325mg Tab PO Q16H PRN Pain, Moderate (4-6) Promethazine HCl 25 mg 09/28/21 15:04 Promethazine 25 Mg Rect Supp AK Q6H PRN Nausea And Vomiting Sodium Chloride 10 ml 09/28/21 15:04 Sodium Chloride 0.9% 10 Ml Flush Syringe IV PRN PRN LINE FLUSH <NEHEMIAHRUTH Solis - Last Filed: 09/30/21 07:32> Assessment and Plan Assessment and plan: I saw and evaluated the patient. I agree with the findings and the plan of care as documented in the Nurse Practitioner's~note, with the following corrections and additions. Hospitalist Physical - Constitutional Vitals: Temp Pulse Resp BP Pulse Ox 98.3 F 80 12 127/93 96 09/30/21 04:00 09/30/21 06:00 09/30/21 06:00 09/30/21 06:00 09/30/21 06:00 HEART Score - HEART Score Troponin: Troponin T < 0.010 ng/mL (0.00-0.029) 09/28/21 11:57 Results - Labs CBC & Chem 7: 09/30/21 04:18 09/30/21 04:18 Labs: Laboratory Last Values WBC 7.6 K/mm3 (4.5-11.0) 09/30/21 04:18 RBC 4.62 M/mm3 (3.65-5.03) 09/30/21 04:18 Hgb 15.1 gm/dl (11.8-15.2) 09/30/21 04:18 Hct 43.9 % (35.5-45.6) 09/30/21 04:18 MCV 95 fl (84-94) H 09/30/21 04:18 MCH 33 pg (28-32) H 09/30/21 04:18 MCHC 34 % (32-34) 09/30/21 04:18 RDW 13.9 % (13.2-15.2) 09/30/21 04:18 Plt Count 198 K/mm3 (140-440) 09/30/21 04:18 Lymph % (Auto) 8.6 % (13.4-35.0) L 09/28/21 11:57 [place] % (Auto) 4.0 % (0.0-7.3) 09/28/21 11:57 Eos % (Auto) 1.3 % (0.0-4.3) 09/28/21 11:57 Baso % (Auto) 0.5 % (0.0-1.8) 09/28/21 11:57 Lymph # (Auto) 0.7 K/mm3 (1.2-5.4) L 09/28/21 11:57 [place] # (Auto) 0.3 K/mm3 (0.0-0.8) 09/28/21 11:57 Eos # (Auto) 0.1 K/mm3 (0.0-0.4) 09/28/21 11:57 Baso # (Auto) 0.0 K/mm3 (0.0-0.1) 09/28/21 11:57 Seg Neutrophils % 85.6 % (40.0-70.0) H 09/28/21 11:57 Seg Neutrophils # 7.1 K/mm3 (1.8-7.7) 09/28/21 11:57 PT 12.6 Sec. (12.2-14.9) 09/28/21 11:57 INR 0.84 (0.87-1.13) L 09/28/21 11:57 APTT 28.6 Sec. (24.2-36.6) 09/28/21 11:57 Thrombin Time 20.3 Sec. (15.1-19.6) H 09/28/21 11:57 Sodium 138 mmol/L (137-145) 09/30/21 04:18 Potassium 3.2 mmol/L (3.6-5.0) L 09/30/21 04:18 Chloride 99.7 mmol/L (98-107) 09/30/21 04:18 Carbon Dioxide 22 mmol/L (22-30) 09/30/21 04:18 Anion Gap 20 mmol/L 09/30/21 04:18 BUN 19 mg/dL (9-20) 09/30/21 04:18 Creatinine 0.8 mg/dL (0.8-1.3) 09/30/21 04:18 Estimated GFR > 60 ml/min 09/30/21 04:18 BUN/Creatinine Ratio 24 % 09/30/21 04:18 Glucose 158 mg/dL (75-100) H 09/30/21 04:18 POC Glucose 176 mg/dL (70-105) H 09/29/21 21:25 Hemoglobin A1c 7.5 % (4-6) H 09/30/21 04:18 Calcium 8.8 mg/dL (8.4-10.2) 09/30/21 04:18 Total Bilirubin 0.70 mg/dL (0.1-1.2) 09/28/21 11:57 AST 18 units/L (5-40) 09/28/21 11:57 ALT 13 units/L (7-56) 09/28/21 11:57 Alkaline Phosphatase 74 units/L (35-129) 09/28/21 11:57 Total Creatine Kinase 136 units/L (55-170) 09/28/21 11:57 Total Creatine Kinase 137 units/L (55-170) 09/28/21 11:57 CK-MB (CK-2) 4.5 ng/mL (0.0-4.0) H 09/28/21 11:57 CK-MB (CK-2) Rel Index 3.3 (0-4) 09/28/21 11:57 Troponin T < 0.010 ng/mL (0.00-0.029) 09/28/21 11:57 NT-Pro-B Natriuret Pep 781.0 pg/mL (0-900) 09/28/21 11:57 Total Protein 7.2 g/dL (6.3-8.2) 09/28/21 11:57 Albumin 4.5 g/dL (3.9-5) 09/28/21 11:57 Albumin/Globulin Ratio 1.7 % 09/28/21 11:57 Triglycerides 136 mg/dL (2-149) 09/29/21 04:16 Cholesterol 164 mg/dL (50-199) 09/29/21 04:16 LDL Cholesterol Direct 96 mg/dL (50-130) 09/29/21 04:16 HDL Cholesterol 52 mg/dL (40-59) 09/29/21 04:16 Cholesterol/HDL Ratio 3.15 % 09/29/21 04:16 Urine Color Yellow (Yellow) 09/28/21 12:10 Urine Turbidity Clear (Clear) 09/28/21 12:10 Urine pH 5.0 (5.0-7.0) 09/28/21 12:10 Ur Specific [place] 1.015 (1.003-1.030) 09/28/21 12:10 Urine Protein <15 mg/dl mg/dL (Negative) 09/28/21 12:10 Urine Glucose (UA) 1.015 mg/dL (Negative) 09/28/21 12:10 Urine Ketones Negative mg/dL (Negative) 09/28/21 12:10 Urine Blood 2+ (Negative) 09/28/21 12:10 Urine Nitrite Negative (Negative) 09/28/21 12:10 Urine Bilirubin Negative (Negative) 09/28/21 12:10 Urine Urobilinogen 0.0 mg/dL (<2.0) 09/28/21 12:10 Ur Leukocyte Esterase Negative (Negative) 09/28/21 12:10 Urine WBC (Auto) 2.0 /HPF (0.0-6.0) 09/28/21 12:10 Urine RBC (Auto) 1.0 /HPF (0.0-6.0) 09/28/21 12:10 U Epithel Cells (Auto) 1.0 /HPF (0-13.0) 09/28/21 12:10 Urine Opiates Screen Negative 09/28/21 12:10 Urine Methadone Screen Negative 09/28/21 12:10 Ur Barbiturates Screen Negative 09/28/21 12:10 Ur Phencyclidine Scrn Negative 09/28/21 12:10 Ur Amphetamines Screen Negative 09/28/21 12:10 U Benzodiazepines Scrn Negative 09/28/21 12:10 Urine Cocaine Screen Negative 09/28/21 12:10 U Marijuana (THC) Screen Negative 09/28/21 12:10 Drugs of Abuse Note Disclamer 09/28/21 12:10 Torrez/IV: Voiding Method Condom Catheter Active Medications - Current Medications Current Medications: Generic Name Dose Route Start Last Admin Trade Name Freq PRN Reason Stop Dose Admin Acetaminophen 650 mg 09/28/21 15:04 Acetaminophen 325 Mg Tab PO Q4H PRN Pain, Mild (1-3) Albuterol 2.5 mg 09/28/21 15:04 Albuterol 2.5 Mg/3 Ml Nebu IH Q3H PRN Shortness Of Breath Aspirin 325 mg 09/30/21 10:00 Aspirin 325 Mg Tab PO QDAY [facility] Atorvastatin Calcium 40 mg 09/28/21 22:00 09/29/21 21:32 Atorvastatin 40 Mg Tab PO 40 mg QHS [facility] Administration Bisacodyl 10 mg 09/28/21 15:04 Bisacodyl 10 Mg Rect Supp [place] QDAY PRN Constipation Dextrose 50 ml 09/29/21 16:29 Dextrose 50% In Water (25gm) 50 Ml Syringe IV Q30MIN PRN Hypoglycemia Protocol Enoxaparin Sodium 40 mg 09/30/21 10:00 Enoxaparin 40 Mg/0.4 Ml Inj SUB-Q QDAY [facility] Protocol Famotidine 20 mg 09/29/21 10:00 09/29/21 10:10 Famotidine 20 Mg Tab PO 20 mg QDAY [facility] Administration Hydromorphone HCl 0.5 mg 09/28/21 15:04 Hydromorphone 0.5 Mg/0.5 Ml Inj IV Q23H PRN Pain , Severe (7-10) Insulin Human Regular 0 units 09/29/21 17:00 09/29/21 21:33 Insulin Regular, Human 100 Units/1 Ml SUB-Q Not Given ACHS [facility] Protocol Magnesium Hydroxide 30 ml 09/28/21 15:04 Magnesium Hydroxide (Mom) Oral Liqd Udc PO Q4H PRN Constipation Metoclopramide HCl 10 mg 09/28/21 15:04 Metoclopramide 10 Mg Tab PO Q6H PRN Nausea And Vomiting Ondansetron HCl 4 mg 09/28/21 15:04 Ondansetron 4 Mg/2 Ml Inj IV Q8H PRN Nausea And Vomiting Oxycodone/Acetaminophen 1 tab 09/28/21 15:04 Oxycodone /Acetaminophen 5-325mg Tab PO Q16H PRN Pain, Moderate (4-6) Promethazine HCl 25 mg 09/28/21 15:04 Promethazine 25 Mg Rect Supp [place] Q6H PRN Nausea And Vomiting Sodium Chloride 10 ml 09/28/21 15:04 Sodium Chloride 0.9% 10 Ml Flush Syringe IV PRN PRN LINE FLUSH Nutrition/Malnutrition Assess - Dietary Evaluation Nutrition/Malnutrition Findings: Nutrition Notes Start: 09/29/21 17:27 Freq: Status: Active Protocol: Document 09/29/21 17:28 SOLIS (Rec: 09/29/21 17:38 SOLIS [id number]) Nutrition Notes Need for Assessment generated from: MD Order,Education Initial or Follow up Brief Note Current Diagnosis Diabetes,Hypertension,Stroke, Hyperlipidemia Other Pertinent Diagnosis L-Hemiparesis, Atrial Fibrilation. Current Diet Mechanical Soft Diet (since L 09/29). 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 Weight Status Appropriate Subjective/Other Information RD consult for nutrition education assessment. No reports available on Pt's PO intake of meals at the time . will assess at F/U. RELIEF SALESPERSON note on 09/29/21 10:47: Swallowing function has been assessed. Patient demonstrates delayed oral transit time secondary to the condition of his teeth. Laryngeal elevation was judged to be functional with a swallow reflex of 1 second. No evidence of aspiration was identified. Recommend a mechanical soft diet with ground meats. No further recommendations. - END OF NOTE . Pt is on Room Air, O2 saturation @ 96%, according to Physical Assessment History notes. Pt has missing teeth, according to Physical Assessment History notes. Pt still in critical condition , not a candidate for Nutrition Education at the time, will assess feasibility on F/U. Percent of energy/protein needs met: Prescribed Mechanical Soft Diet provides for energy/ protein needs (2,048 Kcal/97 g ) during LOS. Nutrition Intervention Follow-Up By: 10/06/21 Additional Comments Nutrition education will be provided at F/U, if feasible. Continue monitoring food tolerance, %PO intake of meals , and BM.
[2021-09-29] MEDS ORDERED: DEXTROSE 50% IN WATER (25GM) 50 ML SYRINGE IV PRN (16:29)
[2021-09-29] MEDS: INSULIN REGULAR, HUMAN 100 UNITS/1 ML SUB-Q SCH ×3 (18:55→21:33)
[2021-09-29] MEDS ORDERED: AMIODARONE 150 MG in DEXTROSE 5% IN WATER 97 ML IV ONE (19:00)
--- NOTE | 2021-09-29 19:17 | Event Note ---
<NUNU MASON - Last Filed: 09/29/21 19:13> Date: 09/29/21 Notified by nursing staff that patient went into Afib with RVR. Upon assessment, patient HR is in the 120s to 140s, Afib with RVR on the monitor. Patient is asymptomatic, BP 106/57, resting comfortably in bed. Denied any CP, palpitation, nor any discomfort at this time. Stat 12 Lead EKG confirmed Afib with RVR. X1 dose of Amiodarone bolus ordered, Cardiology consulted. Will continue to monitor for response <RUTH CERNA - Last Filed: 09/30/21 07:30> I saw and evaluated the patient. I agree with the findings and the plan of care as documented in the Nurse Practitioner's~note, with the following corrections and additions. 30 mins prolonged critical care time
--- NOTE | 2021-09-29 21:43 | Cat Scan Report ---
CT HEAD WITHOUT CONTRAST INDICATION / CLINICAL INFORMATION: F/U post tPA. Cerebrovascular accident. TECHNIQUE: All CT scans at this location are performed using CT dose reduction for ALARA by means of automated e xposure control. COMPARISON: Head CT 09/28/2021 FINDINGS: HEMORRHAGE: No evidence of intracranial hemorrhage or extra-axial fluid collection. EXTRA-AXIAL SPACES: Cortical sulci and sylvian fissures are enlarged reflecting a degree of parenchym al volume loss which is within normal limits for the patient's age 71 years. Basilar cisterns have an unremarkable appearance. VENTRICULAR SYSTEM: The third and lateral ventricles are mildly enlarged out of proportion to the cor tical sulci. This probably reflects the presence of central greater than cortical atrophy. CEREBRAL PARENCHYMA: A ventricular and deep white matter lucencies noted compatible with microvascula r ischemic change. Focal dilatation of cortical sulci and adjacent encephalomalacia indicate the pres ence of remote small infarctions in a right middle cerebral artery and left posterior cerebral artery distribution. These are unchanged. MIDLINE SHIFT OR HERNIATION: There is no mass effect. CEREBELLUM / BRAINSTEM: Brainstem and cerebellum have an unremarkable appearance. MIDLINE STRUCTURES:No abnormalities of the pituitary gland or pineal region are observed INTRACRANIAL VESSELS:Calcified atherosclerotic plaque is present along the course of the cavernous se gments of both internal carotid arteries. Similar findings are seen at the distal vertebral arteries. CRANIOCERVICAL JUNCTION:No abnormality ORBITS: visualized portions of the orbits have an unremarkable appearance. SOFT TISSUES of HEAD: No significant abnormality. CALVARIUM: Evaluation of bone windows reveals no abnormalities. PARANASAL SINUSES / MASTOID AIR CELLS: Mucosal thickening is present at the base of the right maxilla ry sinus. Paranasal sinuses are otherwise free from inflammatory mucosal disease. Mastoid air cells a re normally pneumatized. ADDITIONAL FINDINGS: None. IMPRESSION: 1. Moderate central greater than cortical parenchymal volume loss and advanced microvascular ischemic change. 2. Evidence of remote, small right MCA infarction and left posterior cerebral artery infarction. 3. No acute intracranial abnormality. No significant interval change in comparison to recent previous study 09/28/2021. Signer Name: Ruel Elliott MD Signed: 09/29/2021 9:38 PM Workstation Name: [id number]
[2021-09-29] MEDS ORDERED: ENOXAPARIN 40 MG/0.4 ML INJ SUB-Q SCH (22:00)
[2021-09-30 06:26] LABS: Hematocrit 43.9 % (35.5-45.6); Hemoglobin 15.1 gm/dl (11.8-15.2); Mean Corpuscular HGB Conc 34 % (32-34); Mean Corpuscular Volume 95 fl (84-94); Platelet Count 198 K/mm3 (140-440); Red Blood Count 4.62 M/mm3 (3.65-5.03); Red Cell Distribution Width 13.9 % (13.2-15.2)
[2021-09-30 06:35] LABS: BUN/Creatinine Ratio 24; Blood Urea Nitrogen 19 mg/dL (9-20); Calcium 8.8 mg/dL (8.4-10.2); Hemolysis Index 10
[2021-09-30] MEDS: INSULIN REGULAR, HUMAN 100 UNITS/1 ML SUB-Q SCH ×4 (07:48→22:03)
[2021-09-30] MEDS ORDERED: POTASSIUM CHLORIDE ER 20 MEQ TAB PO SCH (09:00)
[2021-09-30] MEDS ORDERED: ASPIRIN 325 MG TAB PO SCH (10:00)
[2021-09-30] MEDS: FAMOTIDINE 20 MG TAB PO SCH (10:47)
[2021-09-30] MEDS: ENOXAPARIN 40 MG/0.4 ML INJ SUB-Q SCH (10:48)
--- NOTE | 2021-09-30 10:49 | Magnetic Resonance Report ---
MRI BRAIN WITHOUT CONTRAST INDICATION / CLINICAL INFORMATION: Acute CVA. TECHNIQUE: Multisequence, multiplanar images were obtained. COMPARISON: CT head dated 09/28/2021 FINDINGS: CEREBRAL and CEREBELLAR HEMISPHERES: Moderate to large area of near confluent diffusion restriction i s identified in the posterolateral medial right frontal lobe measuring up to 6.5 x 2.[address] ane. Corresponding areas are decreased signal on the ADC map and demonstrate edema on FLAIR imaging. No other areas of diffusion restriction are identified. Mild diffuse cortical volume loss is evident. Moderate T2 signal abnormalities are identified throughout the periventricular and subcortical white matter consistent with chronic microangiopathy. Chronic focal cortical infarcts are identified in th e right frontal cortex measuring up to 2.1 cm and posterior left occipital cortex measuring up to 1.5 cm. There is no evidence for hemorrhage, mass, mass effect or extra-axial fluid collection. Posterio r fossa and contents are unremarkable. VENTRICLES: Normal in size and configuration for age. VISUALIZED ORBITS: No significant abnormality. VISUALIZED PARANASAL SINUSES: No significant abnormality. ADDITIONAL FINDINGS: None. IMPRESSION: 1. Acute to subacute ischemic infarct in the right ANNA distribution. 2. Chronic focal cortical infarcts in the right frontal lobe and left occipital lobe. 3. Mild diffuse volume loss. 4. Moderate chronic microangiopathy in the white matter bilaterally. Signer Name: Burton Harvey Jr, MD Signed: 09/30/2021 10:44 AM Workstation Name: [id number]
--- NOTE | 2021-09-30 11:23 | Progress Note ---
Assessment and Plan CVA (Cerebral Vascular Accident) s/p tPA Left Hemiparesis H/o Paroxysmal Atrial Fibrillation Hypertension Hyperlipidemia Type 2 Diabetes Mellitus with Hyperglycemia - out of 24 hour post tpA monitoring window - ok to transfer to medical floor - continue statins, BP control / secondary prevention measures - prn supplemental oxygen for target O2 sat's > 90% acutely - aspiration precautions - continue lung protective strategies - prn bronchodilators with pulmonary hygiene per RT - continue accuchecks with glycemic control per SSI for target blood glucose < 180 mg/dL - avoid nephrotoxins, renally dose all medications - continue to avoid benzodiazepine's, reduce the possibility of delirium - AB's per ID rec's - prn analgesia per pain score - Maintenance of sleep-wake cycle, avoid delirium - continue enteral nutritional support at goal rate as tolerated - G.I. & VTE prophylaxis - PT/OT/ROM exercises - continue mobility protocols for pressure ulcer prophylaxis - Monitor hemodynamics closely - continue other care per attending / other consultants - discharge planning ongoing concurrently .... Re-evaluate in am & prn Subjective Date of service: 09/30/21 Principal diagnosis: CVA s/p tPA; L. Hemiparesis; H/O PAF; HTN; DM II Interval history: Patient is seen today for: CVA s/p tPA; L. Hemiparesis; H/O PAF; HTN; DM II Seen and examined at bedside; 24hour events reviewed; nursing and respiratory care staff consulted; no adverse overnight events reported to me; resting peacefully in bed; feels better; denies acute chest pain, SOB or palpitations; denies new focal weakness Objective Vital Signs - 12hr 09/29/21 09/29/21 09/29/21 23:32 23:45 23:52 Temperature 98.3 F Pulse Rate 95 H 91 H Respiratory 23 Rate Blood Pressure 135/91 O2 Sat by Pulse 96 97 Oximetry 09/30/21 09/30/21 09/30/21 00:00 01:00 02:00 Temperature Pulse Rate 90 78 78 Respiratory 19 16 14 Rate Blood Pressure 138/91 138/91 137/96 O2 Sat by Pulse 97 95 96 Oximetry 09/30/21 09/30/21 09/30/21 03:00 04:00 05:00 Temperature 98.3 F Pulse Rate 80 75 82 Respiratory 21 13 15 Rate Blood Pressure 137/96 140/87 150/90 O2 Sat by Pulse 94 96 95 Oximetry 09/30/21 09/30/21 06:00 08:29 Temperature Pulse Rate 80 Respiratory 12 Rate Blood Pressure 127/93 O2 Sat by Pulse 96 98 Oximetry Constitutional: no acute distress, alert Eyes: non-icteric ENT: oropharynx moist Neck: supple, no lymphadenopathy, no JVD Effort: normal Ascultation: Bilateral: clear, diminished breath sounds Percussion: Bilateral: not dull Cardiovascular: regular rate and rhythm, other (S1,S2) Gastrointestinal: normoactive bowel sounds, soft, non-tender Integumentary: normal Extremities: no cyanosis, no edema, pink and warm, pulses normal Neurologic: normal mental status, pupils equal and round, CN II-XII normal, other (Power grade 3/5 left lower extremity, Power grade 3-4/5 left upper extremity) Psychiatric: mood appropriate, tearful CBC and BMP: 09/30/21 04:18 09/30/21 04:18 ABG, PT/INR, D-dimer: PT/INR, D-dimer PT 12.6 Sec. (12.2-14.9) 09/28/21 11:57 INR 0.84 (0.87-1.13) L 09/28/21 11:57 Abnormal lab findings: Abnormal Labs 09/28/21 09/28/21 09/28/21 11:20 11:57 11:57 MCV 97 H MCH Lymph % (Auto) 8.6 L Lymph # (Auto) 0.7 L Seg Neutrophils % 85.6 H INR 0.84 L Thrombin Time 20.3 H Potassium BUN Glucose POC Glucose 134 H Hemoglobin A1c CK-MB (CK-2) 09/28/21 09/29/21 09/29/21 11:57 08:15 12:17 MCV MCH Lymph % (Auto) Lymph # (Auto) Seg Neutrophils % INR Thrombin Time Potassium BUN 24 H Glucose 157 H POC Glucose 119 H 166 H Hemoglobin A1c CK-MB (CK-2) 4.5 H 09/29/21 09/29/21 09/30/21 16:17 21:25 04:18 MCV 95 H MCH 33 H Lymph % (Auto) Lymph # (Auto) Seg Neutrophils % INR Thrombin Time Potassium BUN Glucose POC Glucose 219 H 176 H Hemoglobin A1c CK-MB (CK-2) 09/30/21 09/30/21 09/30/21 04:18 04:18 10:46 MCV MCH Lymph % (Auto) Lymph # (Auto) Seg Neutrophils % INR Thrombin Time Potassium 3.2 L BUN Glucose 158 H POC Glucose 231 H Hemoglobin A1c 7.5 H CK-MB (CK-2) Allied health notes reviewed: nursing
--- NOTE | 2021-09-30 11:35 | Progress Note ---
<NUNU MASON - Last Filed: 09/30/21 18:16> Assessment and Plan Assessment and plan: This is a 71-year-old male with known past medical history of HTN, DM, HLD, bilateral cataracts, and paroxysmal afib noncompliant with AC, and previous stroke admitted for Acute CVA s/p tPA Hospital Course to Date: 09/29: Symptoms improved post IV tPA, still with mild left-sided weakness. VSS. Plan for repeat CT head/brain At 1500, 24hrs post tPA. 2D echo and MRI brain pending. Neurology recommendations noted and appreciated. If CT head stable will initiate ASA and VTE proph in the am. PT/OT/Speech consulted. 09/30: Went into Afib with RVR, HR in the 140s s/p X1 dose of IV amiodarone bolus. 2D echo reviewed, EF 50-55%, no evidence of PFO. Cardiology consulted. Neuro status is unchanged, repeat CT brain noted, see report for detail, no evidence of bleed. MRI brain pending. ASA and VTE proph initiated for now. Resume coumadin if okay with cardio and Neuro. Patient is refusing subQ insulin, will resume home metformin. Patient is stable for transfer to telemetry. Assessment and Plan #CVA (Cerebral Vascular Accident) s/p tPA #Left Hemiparesis - Presented with sudden onsent eft-side weakness and paralysis - TeleNeurology saw patient in the ED, S/p tPA - Symptoms improved post tPA, remains with mild left-sided weakness - Plan for repeat CT head/brain At 1500 24hrs post tPA - MRI brain pending - 2D Echo reviewed, EF 50-55%, no evidence of PFO - Lipid panel noted, hgbA1c ordered - Statin initiated - Neurology consulted, appreciated recommendations - Repeat CT head noted, see report for detail, no evidence of bleed - ASA and VTE proph initiated for now. - Continue Neuro check per protocol - PT/OT/Speech ordered - Aspiration and Fall precautions - Of note, patient has history of coumadin was on coumadin at home. - Per patient he needs cataracts surgery and he can't get it due to AC, so he stop taking his coumadin without coordinating with his MDs. Per patient he has not taking his AC for at least 2 months - Resume coumadin if okay with cardio and Neuro. #H/o Paroxysmal Atrial Fibrillation #Hypertension & Hyperlipidemia - Noncompliant with coumadin, per patient he has not taking meds for at least 2 months - Went into Afib with RVR overnight. S/p X1 dose Amiodarone bolus - Echo LVEF 50-55% - Cardiology consulted - Continue blood pressure monitor per protocol - Maintain MAP above 65 - ASA and VTE proph initiated - Resume coumadin if okay with cardio and Neuro. #Type 2 Diabetes Mellitus with Hyperglycemia - HgbA1c 7.5 - BG check and SSI ACHS- patient is refusing subQ insulin - Home metformin resumed - Avoid hypoglycemia #GI/DVT Prophylaxis - PPI- Pepcid - Lovenox SubQ - SCDs bilateral lower extremities while in bed #Advance Care Planning - Disease education data, care plan, diagnoses, and prognosis were discussed with patient at the bedside. Patient is a FULL code. Patient acknowledged understanding and agreed with current care plan. The high probability of a clinically significant, sudden or life threatening deterioration of the [multiple] system(s) required my full and direct attention, intervention and personal management. The aggregate critical care time was [60] minutes. This time is in addition to time spent performing reported procedures but includes the following: [x] Data Review and interpretation [x] Patient assessment and monitoring of vital signs [x] Documentation [x] Medication orders and management Disposition Plan: Transfer to the Floor Total Time Spent with Patient (Minutes): 60 History Interval history: Patient seen and examined at the bedside. Remains stable on RA, denied any pain nor any discomfort. Left-sided weakness present. Went into AFib with RVR overnight, s/p X1 dose of Amiodarone bolus. Patient remains in Afib with RVR this am, HR in the 110s, VSS. Hospitalist Physical - Physical exam Narrative exam: General appearance: Present: no acute distress, well-nourished - EENT Eyes: Present: PERRL, EOM intact ENT: hearing intact, clear oral mucosa - Neck Neck: Present: normal ROM - Respiratory Respiratory effort: normal Respiratory: bilateral: CTA - Cardiovascular Rhythm: regular Heart Sounds: Present: S1 & S2 - Extremities Extremities: no ischemia, pulses intact, pulses symmetrical Peripheral Pulses: within normal limits - Abdominal General gastrointestinal: soft, non-distended, normal bowel sounds - Integumentary Integumentary: Present: clear, warm, dry - Psychiatric Psychiatric: appropriate mood/affect, cooperative - Neurologic Neurologic: CNII-XII intact, moves all extremities (Left-sided weakness present) - Allied Health Allied health notes reviewed: nursing, case management - Constitutional Vitals: Temp Pulse Resp BP Pulse Ox 98.3 F 80 12 127/93 98 09/30/21 04:00 09/30/21 06:00 09/30/21 06:00 09/30/21 06:00 09/30/21 08:29 HEART Score - HEART Score Troponin: Troponin T < 0.010 ng/mL (0.00-0.029) 09/28/21 11:57 Results - Labs CBC & Chem 7: 09/30/21 04:18 09/30/21 04:18 Labs: Laboratory Last Values WBC 7.6 K/mm3 (4.5-11.0) 09/30/21 04:18 RBC 4.62 M/mm3 (3.65-5.03) 09/30/21 04:18 Hgb 15.1 gm/dl (11.8-15.2) 09/30/21 04:18 Hct 43.9 % (35.5-45.6) 09/30/21 04:18 MCV 95 fl (84-94) H 09/30/21 04:18 MCH 33 pg (28-32) H 09/30/21 04:18 MCHC 34 % (32-34) 09/30/21 04:18 RDW 13.9 % (13.2-15.2) 09/30/21 04:18 Plt Count 198 K/mm3 (140-440) 09/30/21 04:18 Lymph % (Auto) 8.6 % (13.4-35.0) L 09/28/21 11:57 [place] % (Auto) 4.0 % (0.0-7.3) 09/28/21 11:57 Eos % (Auto) 1.3 % (0.0-4.3) 09/28/21 11:57 Baso % (Auto) 0.5 % (0.0-1.8) 09/28/21 11:57 Lymph # (Auto) 0.7 K/mm3 (1.2-5.4) L 09/28/21 11:57 [place] # (Auto) 0.3 K/mm3 (0.0-0.8) 09/28/21 11:57 Eos # (Auto) 0.1 K/mm3 (0.0-0.4) 09/28/21 11:57 Baso # (Auto) 0.0 K/mm3 (0.0-0.1) 09/28/21 11:57 Seg Neutrophils % 85.6 % (40.0-70.0) H 09/28/21 11:57 Seg Neutrophils # 7.1 K/mm3 (1.8-7.7) 09/28/21 11:57 PT 12.6 Sec. (12.2-14.9) 09/28/21 11:57 INR 0.84 (0.87-1.13) L 09/28/21 11:57 APTT 28.6 Sec. (24.2-36.6) 09/28/21 11:57 Thrombin Time 20.3 Sec. (15.1-19.6) H 09/28/21 11:57 Sodium 138 mmol/L (137-145) 09/30/21 04:18 Potassium 3.2 mmol/L (3.6-5.0) L 09/30/21 04:18 Chloride 99.7 mmol/L (98-107) 09/30/21 04:18 Carbon Dioxide 22 mmol/L (22-30) 09/30/21 04:18 Anion Gap 20 mmol/L 09/30/21 04:18 BUN 19 mg/dL (9-20) 09/30/21 04:18 Creatinine 0.8 mg/dL (0.8-1.3) 09/30/21 04:18 Estimated GFR > 60 ml/min 09/30/21 04:18 BUN/Creatinine Ratio 24 % 09/30/21 04:18 Glucose 158 mg/dL (75-100) H 09/30/21 04:18 POC Glucose 231 mg/dL (70-105) H 09/30/21 10:46 Hemoglobin A1c 7.5 % (4-6) H 09/30/21 04:18 Calcium 8.8 mg/dL (8.4-10.2) 09/30/21 04:18 Total Bilirubin 0.70 mg/dL (0.1-1.2) 09/28/21 11:57 AST 18 units/L (5-40) 09/28/21 11:57 ALT 13 units/L (7-56) 09/28/21 11:57 Alkaline Phosphatase 74 units/L (35-129) 09/28/21 11:57 Total Creatine Kinase 136 units/L (55-170) 09/28/21 11:57 Total Creatine Kinase 137 units/L (55-170) 09/28/21 11:57 CK-MB (CK-2) 4.5 ng/mL (0.0-4.0) H 09/28/21 11:57 CK-MB (CK-2) Rel Index 3.3 (0-4) 09/28/21 11:57 Troponin T < 0.010 ng/mL (0.00-0.029) 09/28/21 11:57 NT-Pro-B Natriuret Pep 781.0 pg/mL (0-900) 09/28/21 11:57 Total Protein 7.2 g/dL (6.3-8.2) 09/28/21 11:57 Albumin 4.5 g/dL (3.9-5) 09/28/21 11:57 Albumin/Globulin Ratio 1.7 % 09/28/21 11:57 Triglycerides 136 mg/dL (2-149) 09/29/21 04:16 Cholesterol 164 mg/dL (50-199) 09/29/21 04:16 LDL Cholesterol Direct 96 mg/dL (50-130) 09/29/21 04:16 HDL Cholesterol 52 mg/dL (40-59) 09/29/21 04:16 Cholesterol/HDL Ratio 3.15 % 09/29/21 04:16 Urine Color Yellow (Yellow) 09/28/21 12:10 Urine Turbidity Clear (Clear) 09/28/21 12:10 Urine pH 5.0 (5.0-7.0) 09/28/21 12:10 Ur Specific [place] 1.015 (1.003-1.030) 09/28/21 12:10 Urine Protein <15 mg/dl mg/dL (Negative) 09/28/21 12:10 Urine Glucose (UA) 1.015 mg/dL (Negative) 09/28/21 12:10 Urine Ketones Negative mg/dL (Negative) 09/28/21 12:10 Urine Blood 2+ (Negative) 09/28/21 12:10 Urine Nitrite Negative (Negative) 09/28/21 12:10 Urine Bilirubin Negative (Negative) 09/28/21 12:10 Urine Urobilinogen 0.0 mg/dL (<2.0) 09/28/21 12:10 Ur Leukocyte Esterase Negative (Negative) 09/28/21 12:10 Urine WBC (Auto) 2.0 /HPF (0.0-6.0) 09/28/21 12:10 Urine RBC (Auto) 1.0 /HPF (0.0-6.0) 09/28/21 12:10 U Epithel Cells (Auto) 1.0 /HPF (0-13.0) 09/28/21 12:10 Urine Opiates Screen Negative 09/28/21 12:10 Urine Methadone Screen Negative 09/28/21 12:10 Ur Barbiturates Screen Negative 09/28/21 12:10 Ur Phencyclidine Scrn Negative 09/28/21 12:10 Ur Amphetamines Screen Negative 09/28/21 12:10 U Benzodiazepines Scrn Negative 09/28/21 12:10 Urine Cocaine Screen Negative 09/28/21 12:10 U Marijuana (THC) Screen Negative 09/28/21 12:10 Drugs of Abuse Note Disclamer 09/28/21 12:10 Torrez/IV: Voiding Method Condom Catheter Active Medications - Current Medications Current Medications: Generic Name Dose Route Start Last Admin Trade Name Freq PRN Reason Stop Dose Admin Acetaminophen 650 mg 09/28/21 15:04 Acetaminophen 325 Mg Tab PO Q4H PRN Pain, Mild (1-3) Albuterol 2.5 mg 09/28/21 15:04 Albuterol 2.5 Mg/3 Ml Nebu IH Q3H PRN Shortness Of Breath Aspirin 325 mg 09/30/21 10:00 09/30/21 10:48 Aspirin 325 Mg Tab PO 325 mg QDAY ASHISH Administration Atorvastatin Calcium 40 mg 09/28/21 22:00 09/29/21 21:32 Atorvastatin 40 Mg Tab PO 40 mg QHS ASHISH Administration Bisacodyl 10 mg 09/28/21 15:04 Bisacodyl 10 Mg Rect Supp VT QDAY PRN Constipation Dextrose 50 ml 09/29/21 16:29 Dextrose 50% In Water (25gm) 50 Ml Syringe IV Q30MIN PRN Hypoglycemia Protocol Enoxaparin Sodium 40 mg 09/30/21 10:00 09/30/21 10:48 Enoxaparin 40 Mg/0.4 Ml Inj SUB-Q 40 mg QDAY ASHISH Administration Protocol Famotidine 20 mg 09/29/21 10:00 09/30/21 10:47 Famotidine 20 Mg Tab PO 20 mg QDAY ASHISH Administration Hydromorphone HCl 0.5 mg 09/28/21 15:04 Hydromorphone 0.5 Mg/0.5 Ml Inj IV Q23H PRN Pain , Severe (7-10) Insulin Human Regular 0 units 09/29/21 17:00 09/30/21 10:49 Insulin Regular, Human 100 Units/1 Ml SUB-Q 3 units ACHS ASHISH Administration Protocol Magnesium Hydroxide 30 ml 09/28/21 15:04 Magnesium Hydroxide (Mom) Oral Liqd Udc PO Q4H PRN Constipation Metoclopramide HCl 10 mg 09/28/21 15:04 Metoclopramide 10 Mg Tab PO Q6H PRN Nausea And Vomiting Ondansetron HCl 4 mg 09/28/21 15:04 Ondansetron 4 Mg/2 Ml Inj IV Q8H PRN Nausea And Vomiting Oxycodone/Acetaminophen 1 tab 09/28/21 15:04 Oxycodone /Acetaminophen 5-325mg Tab PO Q16H PRN Pain, Moderate (4-6) Potassium Chloride 40 meq 09/30/21 09:00 09/30/21 10:00 Potassium Chloride Er 20 Meq Tab PO 09/30/21 13:00 40 meq ONCE@0900 ASHISH Administration Promethazine HCl 25 mg 09/28/21 15:04 Promethazine 25 Mg Rect Supp VT Q6H PRN Nausea And Vomiting Sodium Chloride 10 ml 09/28/21 15:04 09/30/21 10:47 Sodium Chloride 0.9% 10 Ml Flush Syringe IV 10 ml PRN PRN Administration LINE FLUSH Nutrition/Malnutrition Assess - Dietary Evaluation Nutrition/Malnutrition Findings: Nutrition Notes Start: 09/29/21 17:27 Freq: Status: Active Protocol: Document 09/29/21 17:28 SOLIS (Rec: 09/29/21 17:38 SOLIS [id number]) Nutrition Notes Need for Assessment generated from: MD Order,Education Initial or Follow up Brief Note Current Diagnosis Diabetes,Hypertension,Stroke, Hyperlipidemia Other Pertinent Diagnosis L-Hemiparesis, Atrial Fibrilation. Current Diet Mechanical Soft Diet (since L 09/29). Height 6 ft 1 in Weight 74.8 kg [place] Body Weight (kg) 83.63 BMI 21.7 Intake Prior to Admission Good Weight change and time frame Pt denies having loss body weight PHARMACY ORDER ENTRY TECHNICIAN. Weight Status Appropriate Subjective/Other Information RD consult for nutrition education assessment. No reports available on Pt's PO intake of meals at the time . will assess at F/U. PRODUCT DELIVERY SPECIALIST note on 09/29/21 10:47: Swallowing function has been assessed. Patient demonstrates delayed oral transit time secondary to the condition of his teeth. Laryngeal elevation was judged to be functional with a swallow reflex of 1 second. No evidence of aspiration was identified. Recommend a mechanical soft diet with ground meats. No further recommendations. - END OF NOTE . Pt is on Room Air, O2 saturation @ 96%, according to Physical Assessment History notes. Pt has missing teeth, according to Physical Assessment History notes. Pt still in critical condition , not a candidate for Nutrition Education at the time, will assess feasibility on F/U. Percent of energy/protein needs met: Prescribed Mechanical Soft Diet provides for energy/ protein needs (2,048 Kcal/97 g ) during LOS. Nutrition Intervention Follow-Up By: 10/06/21 Additional Comments Nutrition education will be provided at F/U, if feasible. Continue monitoring food tolerance, %PO intake of meals , and BM. <RUTH CERNA - Last Filed: 10/01/21 07:51> Assessment and Plan Assessment and plan: I saw and evaluated the patient. I agree with the findings and the plan of care as documented in the Nurse Practitioner's~note, with the following corrections and additions. Hospitalist Physical - Constitutional Vitals: Temp Pulse Resp BP Pulse Ox 97.6 F 66 15 106/71 96 10/01/21 03:59 10/01/21 03:59 10/01/21 03:59 10/01/21 03:59 10/01/21 03:59 HEART Score - HEART Score Troponin: Troponin T < 0.010 ng/mL (0.00-0.029) 09/28/21 11:57 Results - Labs CBC & Chem 7: 10/01/21 05:23 10/01/21 05:23 Labs: Laboratory Last Values WBC 6.3 K/mm3 (4.5-11.0) 10/01/21 05:23 RBC 4.30 M/mm3 (3.65-5.03) 10/01/21 05:23 Hgb 14.0 gm/dl (11.8-15.2) 10/01/21 05:23 Hct 41.6 % (35.5-45.6) 10/01/21 05:23 MCV 97 fl (84-94) H 10/01/21 05:23 MCH 33 pg (28-32) H 10/01/21 05:23 MCHC 34 % (32-34) 10/01/21 05:23 RDW 13.6 % (13.2-15.2) 10/01/21 05:23 Plt Count 208 K/mm3 (140-440) 10/01/21 05:23 Lymph % (Auto) 8.6 % (13.4-35.0) L 09/28/21 11:57 [place] % (Auto) 4.0 % (0.0-7.3) 09/28/21 11:57 Eos % (Auto) 1.3 % (0.0-4.3) 09/28/21 11:57 Baso % (Auto) 0.5 % (0.0-1.8) 09/28/21 11:57 Lymph # (Auto) 0.7 K/mm3 (1.2-5.4) L 09/28/21 11:57 [place] # (Auto) 0.3 K/mm3 (0.0-0.8) 09/28/21 11:57 Eos # (Auto) 0.1 K/mm3 (0.0-0.4) 09/28/21 11:57 Baso # (Auto) 0.0 K/mm3 (0.0-0.1) 09/28/21 11:57 Seg Neutrophils % 85.6 % (40.0-70.0) H 09/28/21 11:57 Seg Neutrophils # 7.1 K/mm3 (1.8-7.7) 09/28/21 11:57 PT 12.6 Sec. (12.2-14.9) 09/28/21 11:57 INR 0.84 (0.87-1.13) L 09/28/21 11:57 APTT 28.6 Sec. (24.2-36.6) 09/28/21 11:57 Thrombin Time 20.3 Sec. (15.1-19.6) H 09/28/21 11:57 Sodium 138 mmol/L (137-145) 10/01/21 05:23 Potassium 3.7 mmol/L (3.6-5.0) 10/01/21 05:23 Chloride 102.5 mmol/L (98-107) 10/01/21 05:23 Carbon Dioxide 21 mmol/L (22-30) L 10/01/21 05:23 Anion Gap 18 mmol/L 10/01/21 05:23 BUN 29 mg/dL (9-20) H 10/01/21 05:23 Creatinine 1.3 mg/dL (0.8-1.3) D 10/01/21 05:23 Estimated GFR 55 ml/min 10/01/21 05:23 BUN/Creatinine Ratio 22 % 10/01/21 05:23 Glucose 165 mg/dL (75-100) H 10/01/21 05:23 POC Glucose 158 mg/dL (70-105) H 09/30/21 21:00 Hemoglobin A1c 7.5 % (4-6) H 09/30/21 04:18 Calcium 8.8 mg/dL (8.4-10.2) 10/01/21 05:23 Phosphorus 3.90 mg/dL (2.5-4.5) 10/01/21 05:23 Magnesium 2.00 mg/dL (1.7-2.3) 10/01/21 05:23 Total Bilirubin 0.70 mg/dL (0.1-1.2) 09/28/21 11:57 AST 18 units/L (5-40) 09/28/21 11:57 ALT 13 units/L (7-56) 09/28/21 11:57 Alkaline Phosphatase 74 units/L (35-129) 09/28/21 11:57 Total Creatine Kinase 136 units/L (55-170) 09/28/21 11:57 Total Creatine Kinase 137 units/L (55-170) 09/28/21 11:57 CK-MB (CK-2) 4.5 ng/mL (0.0-4.0) H 09/28/21 11:57 CK-MB (CK-2) Rel Index 3.3 (0-4) 09/28/21 11:57 Troponin T < 0.010 ng/mL (0.00-0.029) 09/28/21 11:57 NT-Pro-B Natriuret Pep 781.0 pg/mL (0-900) 09/28/21 11:57 Total Protein 7.2 g/dL (6.3-8.2) 09/28/21 11:57 Albumin 4.5 g/dL (3.9-5) 09/28/21 11:57 Albumin/Globulin Ratio 1.7 % 09/28/21 11:57 Triglycerides 136 mg/dL (2-149) 09/29/21 04:16 Cholesterol 164 mg/dL (50-199) 09/29/21 04:16 LDL Cholesterol Direct 96 mg/dL (50-130) 09/29/21 04:16 HDL Cholesterol 52 mg/dL (40-59) 09/29/21 04:16 Cholesterol/HDL Ratio 3.15 % 09/29/21 04:16 Urine Color Yellow (Yellow) 09/28/21 12:10 Urine Turbidity Clear (Clear) 09/28/21 12:10 Urine pH 5.0 (5.0-7.0) 09/28/21 12:10 Ur Specific [place] 1.015 (1.003-1.030) 09/28/21 12:10 Urine Protein <15 mg/dl mg/dL (Negative) 09/28/21 12:10 Urine Glucose (UA) 1.015 mg/dL (Negative) 09/28/21 12:10 Urine Ketones Negative mg/dL (Negative) 09/28/21 12:10 Urine Blood 2+ (Negative) 09/28/21 12:10 Urine Nitrite Negative (Negative) 09/28/21 12:10 Urine Bilirubin Negative (Negative) 09/28/21 12:10 Urine Urobilinogen 0.0 mg/dL (<2.0) 09/28/21 12:10 Ur Leukocyte Esterase Negative (Negative) 09/28/21 12:10 Urine WBC (Auto) 2.0 /HPF (0.0-6.0) 09/28/21 12:10 Urine RBC (Auto) 1.0 /HPF (0.0-6.0) 09/28/21 12:10 U Epithel Cells (Auto) 1.0 /HPF (0-13.0) 09/28/21 12:10 Urine Opiates Screen Negative 09/28/21 12:10 Urine Methadone Screen Negative 09/28/21 12:10 Ur Barbiturates Screen Negative 09/28/21 12:10 Ur Phencyclidine Scrn Negative 09/28/21 12:10 Ur Amphetamines Screen Negative 09/28/21 12:10 U Benzodiazepines Scrn Negative 09/28/21 12:10 Urine Cocaine Screen Negative 09/28/21 12:10 U Marijuana (THC) Screen Negative 09/28/21 12:10 Drugs of Abuse Note Disclamer 09/28/21 12:10 Torrez/IV: Voiding Method Condom Catheter Active Medications - Current Medications Current Medications: Generic Name Dose Route Start Last Admin Trade Name Freq PRN Reason Stop Dose Admin Acetaminophen 650 mg 09/28/21 15:04 Acetaminophen 325 Mg Tab PO Q4H PRN Pain, Mild (1-3) Albuterol 2.5 mg 09/28/21 15:04 Albuterol 2.5 Mg/3 Ml Nebu IH Q3H PRN Shortness Of Breath Atorvastatin Calcium 40 mg 09/28/21 22:00 09/30/21 22:01 Atorvastatin 40 Mg Tab PO 40 mg QHS ASHISH Administration Bisacodyl 10 mg 09/28/21 15:04 Bisacodyl 10 Mg Rect Supp VT QDAY PRN Constipation Dextrose 50 ml 09/29/21 16:29 Dextrose 50% In Water (25gm) 50 Ml Syringe IV Q30MIN PRN Hypoglycemia Protocol Enoxaparin Sodium 40 mg 09/30/21 10:00 09/30/21 10:48 Enoxaparin 40 Mg/0.4 Ml Inj SUB-Q 40 mg QDAY ASHISH Administration Protocol Famotidine 20 mg 09/29/21 10:00 09/30/21 10:47 Famotidine 20 Mg Tab PO 20 mg QDAY ASHISH Administration Hydromorphone HCl 0.5 mg 09/28/21 15:04 Hydromorphone 0.5 Mg/0.5 Ml Inj IV Q23H PRN Pain , Severe (7-10) Insulin Human Regular 0 units 09/29/21 17:00 09/30/21 22:03 Insulin Regular, Human 100 Units/1 Ml SUB-Q 2 units ACHS ASHISH Administration Protocol Magnesium Hydroxide 30 ml 09/28/21 15:04 Magnesium Hydroxide (Mom) Oral Liqd Udc PO Q4H PRN Constipation Metformin HCl 1,000 mg 09/30/21 17:00 09/30/21 17:46 Metformin 500 Mg Tab PO 1,000 mg BIDDIAB ASHISH Administration Metoclopramide HCl 10 mg 09/28/21 15:04 Metoclopramide 10 Mg Tab PO Q6H PRN Nausea And Vomiting Metoprolol Tartrate 25 mg 09/30/21 22:00 09/30/21 22:02 Metoprolol Tartrate 25 Mg Tab PO 25 mg BID ASHISH Administration Ondansetron HCl 4 mg 09/28/21 15:04 Ondansetron 4 Mg/2 Ml Inj IV Q8H PRN Nausea And Vomiting Oxycodone/Acetaminophen 1 tab 09/28/21 15:04 Oxycodone /Acetaminophen 5-325mg Tab PO Q16H PRN Pain, Moderate (4-6) Promethazine HCl 25 mg 09/28/21 15:04 Promethazine 25 Mg Rect Supp VT Q6H PRN Nausea And Vomiting Sodium Chloride 10 ml 09/28/21 15:04 09/30/21 10:47 Sodium Chloride 0.9% 10 Ml Flush Syringe IV 10 ml PRN PRN Administration LINE FLUSH Nutrition/Malnutrition Assess - Dietary Evaluation Nutrition/Malnutrition Findings: Nutrition Notes Start: 09/29/21 17:27 Freq: Status: Active Protocol: Document 09/29/21 17:28 SOLIS (Rec: 09/29/21 17:38 SOLIS [id number]) Nutrition Notes Need for Assessment generated from: MD Order,Education Initial or Follow up Brief Note Current Diagnosis Diabetes,Hypertension,Stroke, Hyperlipidemia Other Pertinent Diagnosis L-Hemiparesis, Atrial Fibrilation. Current Diet Mechanical Soft Diet (since L 09/29). Height 6 ft 1 in Weight 74.8 kg [place] Body Weight (kg) 83.63 BMI 21.7 Intake Prior to Admission Good Weight change and time frame Pt denies having loss body weight PHARMACY ORDER ENTRY TECHNICIAN. Weight Status Appropriate Subjective/Other Information RD consult for nutrition education assessment. No reports available on Pt's PO intake of meals at the time . will assess at F/U. PRODUCT DELIVERY SPECIALIST note on 09/29/21 10:47: Swallowing function has been assessed. Patient demonstrates delayed oral transit time secondary to the condition of his teeth. Laryngeal elevation was judged to be functional with a swallow reflex of 1 second. No evidence of aspiration was identified. Recommend a mechanical soft diet with ground meats. No further recommendations. - END OF NOTE . Pt is on Room Air, O2 saturation @ 96%, according to Physical Assessment History notes. Pt has missing teeth, according to Physical Assessment History notes. Pt still in critical condition , not a candidate for Nutrition Education at the time, will assess feasibility on F/U. Percent of energy/protein needs met: Prescribed Mechanical Soft Diet provides for energy/ protein needs (2,048 Kcal/97 g ) during LOS. Nutrition Intervention Follow-Up By: 10/06/21 Additional Comments Nutrition education will be provided at F/U, if feasible. Continue monitoring food tolerance, %PO intake of meals , and BM.
[2021-09-30] MEDS ORDERED: NON-FORMULARY EACH (Metformin Hcl [Metformin] 1,000 MG Tablet) PO SCH (11:52)
--- NOTE | 2021-09-30 13:38 | Consultation ---
History of Present Illness Consult date: 09/30/21 Consult reason: atrial fibrillation History of present illness: The patient is a 71-year-old man who presented to the hospital with an acute stroke, manifested by acute left-sided hemiparesis. There was no cognitive or speech impairment. On presentation to the emergency room, he was administered with tPA, and is currently in the ICU on supportive management. Initial ECG on presentation was a sinus rhythm with poor R wave progression but no ST or T wave abnormalities. During his course in the ICU, he developed the onset of atrial fibrillation, which has persisted, currently remains in atrial fibrillation with a heart rate in the 90s to 110s. The patient gives a history of hypertension and paroxysmal atrial fibrillation. 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 He was prescribed warfarin and a baby aspirin, which he states that he stopped taking 2 months ago because it caused him to be "foggy". On his presentation with this acute stroke, he was no longer on his warfarin. Other work-up in the hospital so far: Chest x-ray showed normal-sized cardiac silhouette and clear lungs. Echocardiogram showed well-preserved left ventricular systolic function with ejection fraction 50 to 55%, mild dilatation of the left atrium, no significant valvular lesions, and negative saline contrast bubble study. Past History Past Medical History: atrial fib, hypertension Past Surgical History: No surgical history, Other (Reviewed) Social history: . denies: smoking, alcohol abuse, prescription drug abuse Family history: hypertension Medications and Allergies Allergies Allergy/AdvReac Type Severity Reaction Status Date / Time No Known Allergies Allergy Unverified 09/28/21 11:57 Home Medications Medication Instructions Recorded Confirmed Last Taken Type Metformin HCl [metFORMIN] 1,000 mg PO BID 09/30/21 09/30/21 Unknown History Active Meds: Active Medications Acetaminophen (Acetaminophen 325 Mg Tab) 650 mg PO Q4H PRN PRN Reason: Pain, Mild (1-3) Albuterol (Albuterol 2.5 Mg/3 Ml Nebu) 2.5 mg IH Q3H PRN PRN Reason: Shortness Of Breath Aspirin (Aspirin 325 Mg Tab) 325 mg PO QDAY ASHISH Last Admin: 09/30/21 10:48 Dose: 325 mg Atorvastatin Calcium (Atorvastatin 40 Mg Tab) 40 mg PO QHS ASHISH Last Admin: 09/29/21 21:32 Dose: 40 mg Bisacodyl (Bisacodyl 10 Mg Rect Supp) 10 mg OK QDAY PRN PRN Reason: Constipation Dextrose (Dextrose 50% In Water (25gm) 50 Ml Syringe) 50 ml IV Q30MIN PRN; Protocol PRN Reason: Hypoglycemia Enoxaparin Sodium (Enoxaparin 40 Mg/0.4 Ml Inj) 40 mg SUB-Q QDAY [facility]; Protocol Last Admin: 09/30/21 10:48 Dose: 40 mg Famotidine (Famotidine 20 Mg Tab) 20 mg PO QDAY [facility] Last Admin: 09/30/21 10:47 Dose: 20 mg Hydromorphone HCl (Hydromorphone 0.5 Mg/0.5 Ml Inj) 0.5 mg IV Q23H PRN PRN Reason: Pain , Severe (7-10) Insulin Human Regular (Insulin Regular, Human 100 Units/1 Ml) 0 units SUB-Q ACHS [facility]; Protocol Last Admin: 09/30/21 10:49 Dose: 3 units Magnesium Hydroxide (Magnesium Hydroxide (Mom) Oral Liqd Udc) 30 ml PO Q4H PRN PRN Reason: Constipation Metformin HCl (Metformin 500 Mg Tab) 1,000 mg PO BIDDIAB [facility] Metoclopramide HCl (Metoclopramide 10 Mg Tab) 10 mg PO Q6H PRN PRN Reason: Nausea And Vomiting Ondansetron HCl (Ondansetron 4 Mg/2 Ml Inj) 4 mg IV Q8H PRN PRN Reason: Nausea And Vomiting Oxycodone/Acetaminophen (Oxycodone /Acetaminophen 5-325mg Tab) 1 tab PO Q16H PRN PRN Reason: Pain, Moderate (4-6) Promethazine HCl (Promethazine 25 Mg Rect Supp) 25 mg OK Q6H PRN PRN Reason: Nausea And Vomiting Sodium Chloride (Sodium Chloride 0.9% 10 Ml Flush Syringe) 10 ml IV PRN PRN PRN Reason: LINE FLUSH Last Admin: 09/30/21 10:47 Dose: 10 ml Review of Systems Cardiovascular: no chest pain, no orthopnea, no palpitations, no rapid/irregular heart beat, no edema, no syncope, no lightheadedness, no shortness of breath Physical Examination Vital Signs Pulse Ox 99 09/28/21 11:46 General appearance: no acute distress HEENT: Positive: PERRL Neck: Positive: neck supple Cardiac: Positive: irregularly irregular Lungs: Positive: clear to auscultation Neuro: Positive: Other (Left hemiparesis following acute CVA) Abdomen: Positive: Soft Male genitourinary: Positive: deferred Skin: Positive: Clear Extremities: Absent: edema Results 09/30/21 04:18 09/30/21 04:18 CBC 09/30/21 Range/Units 04:18 WBC 7.6 (4.5-11.0) K/mm3 RBC 4.62 (3.65-5.03) M/mm3 Hgb 15.1 (11.8-15.2) gm/dl Hct 43.9 (35.5-45.6) % Plt Count 198 (140-440) K/mm3 Comprehensive Metabolic Panel 09/30/21 Range/Units 04:18 Sodium 138 (137-145) mmol/L Potassium 3.2 L (3.6-5.0) mmol/L Chloride 99.7 (98-107) mmol/L Carbon Dioxide 22 (22-30) mmol/L BUN 19 (9-20) mg/dL Creatinine 0.8 (0.8-1.3) mg/dL Glucose 158 H (75-100) mg/dL Calcium 8.8 (8.4-10.2) mg/dL EKG interpretations - Telemetry EKG Rhythm: Atrial Fibrillation Assessment and Plan - Patient Problems (1) Paroxysmal atrial fibrillation Current Visit: Yes Status: Acute Plan to address problem: 71-year-old man with a history of paroxysmal atrial fibrillation, noncompliant with his prescribed warfarin, presents with an acute CVA treated with tPA in the emergency room. There has been some gradual improvement in his left h emiparesis. Echocardiogram shows left ventricular ejection fraction 50 to 55%, and negative contrast bubble study. On initial presentation, he was in sinus rhythm but has reverted to atrial fibrillation. At this time, we will not recommend pharmacologic on mechanical efforts to acutely restore sinus rhythm, instead add low-dose metoprolol for rate control. Patient will need long-term oral anticoagulation, Eliquis 5 mg twice daily will be substituted for warfarin which he reported intolerance. Timing of initiation of Eliquis will be on the recommendation of the managing neurologist.
[2021-09-30] MEDS: metFORMIN 500 MG TAB PO SCH (17:46)
--- NOTE | 2021-09-30 18:24 | Electrocardiograph Report ---
[facility] Test Date: 2021-09-29 Test Time: 07:14:40 Pat Name: LAMBERTO GARNETT Department: Room: A486 Gender: M Label Folder: IVA : 1950 Requested By: GONZALES CRUZ Order Number: [id number] Reading MD: Gabbi Rodríguez Measurements Intervals [place] Rate: 74 P: 62 KS: 204 QRS: 71 QRSD: 75 T: 62 QT: 426 QTc: 473 Interpretive Statements Sinus rhythm No previous ECG available for comparison Electronically Signed On 09-30-2021 18:24:09 EDT by Gabbi Rodríguez
--- NOTE | 2021-09-30 18:37 | Electrocardiograph Report ---
[facility] Test Date: 2021-09-29 Test Time: 16:40:19 Pat Name: LAMBERTO GARNETT Department: Room: A486 Gender: M Page Technician: MAITE : 1950 Requested By: NUNU MASON Order Number: [id number] Reading MD: Gabbi Rodríguez Measurements Intervals [place] Rate: 111 P: 256 MN: 164 QRS: 61 QRSD: 91 T: 39 QT: 426 QTc: 579 Interpretive Statements Atrial flutter with variable AV conduction Nonspecific ST and T wave abnormality Compared to ECG 09/29/2021 07:14:40 Atrial flutter has replaced sinus rhythm Electronically Signed On 09-30-2021 18:36:23 EDT by Gabbi Rodríguez
--- NOTE | 2021-09-30 18:39 | Electrocardiograph Report ---
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
[2021-09-30] MEDS: METOPROLOL TARTRATE 25 MG TAB PO SCH (22:02)
[2021-10-01 05:40] LABS: Hematocrit 41.6 % (35.5-45.6); Mean Corpuscular HGB Conc 34 % (32-34); Mean Corpuscular Volume 97 fl (84-94); Platelet Count 208 K/mm3 (140-440); Red Cell Distribution Width 13.6 % (13.2-15.2)
[2021-10-01 06:02] LABS: Calcium 8.8 mg/dL (8.4-10.2)
--- NOTE | 2021-10-01 08:33 | Progress Note ---
Assessment and Plan 71 YO Male with CVA presents ED for evaluation. Patient reported his left side is weak. Patient states that he was in his usual state of health upon awakening from sleep this morning around 8 AM. Patient states that he was in the restroom conducting personal hygiene when he felt a sudden onset of left-sided weakness. Patient was unable to move his left side and subsequently fell to the ground. EMS was notified and upon arrival the patient was found to be in distress with a focal neurologic deficit. A code stroke was called and the patient was transported to [facility] for further care and evaluation of the aforementioned symptoms. The patient was seen and evaluated emergency department. Patient found to have clinical symptoms consistent with CVA and was within the therapeutic window for tPA. tPA was administered with in the emergency department with improvement in symptoms. Patient admitted to ICU due to increased risk of worsening symptoms after medical stabilization. Patient denies fever, chills, chest pain, palpitation, adductive cough, skin rash, recent contact, known exposure to COVID-19. Patient has history of Hypertension, Diabetes and hyperlipidemia. Patient has no history of smoking, alcohol or drug abuse. 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 Patient . Patient has no children. No known drug allergies. Patient alert, awake, weak, resting on room air. O2 saturation 97%. No acute respiratory distress. Patient afebrile, no leukocytosis, Blood pressure 114/76 , Pulse 61 , respirations 16 CChest xray done 09/28/21 reported Minimal CHF Patient is on S/C Lovenox, Pepcid, Albuterol inhaler. I spent critical care time of 35 minutes talking to the patient, obtaining history, Examine the patient, review the chest xray and Lab results, talking to the nursing staff and work up plan of treatment in this critically ill CVA with left hemiplegia. - Patient Problems (1) CVA (cerebral vascular accident) Current Visit: Yes Status: Acute Plan to address problem: Patient has CVA with left hemiplegia. Patient says Left hemiplegia slightly better after giving TPA. Management as per neurology. Recommend aspiration precautions. (2) Left-sided weakness Current Visit: Yes Status: Acute Plan to address problem: Patient has CVA with left hemiplegia. Patient says Left hemiplegia slightly better after giving TPA. Management as per neurology. (3) Paroxysmal atrial fibrillation Current Visit: Yes Status: Acute Plan to address problem: Management as per primary care and cardiology. (4) HTN (hypertension) Current Visit: Yes Status: Acute Plan to address problem: Management as per primary care. (5) Diabetes Current Visit: Yes Status: Acute Plan to address problem: Management as per primary care. Subjective Date of service: 10/01/21 Principal diagnosis: CVA s/p tPA; L. Hemiparesis; H/O PAF; HTN; DM II Interval history: 71 YO Male with CVA presents ED for evaluation. Patient reported his left side is weak. Patient states that he was in his usual state of health upon awakening from sleep this morning around 8 AM. Patient states that he was in the restroom conducting personal hygiene when he felt a sudden onset of left-sided weakness. Patient was unable to move his left side and subsequently fell to the ground. EMS was notified and upon arrival the patient was found to be in distress with a focal neurologic deficit. A code stroke was called and the patient was transported to [facility] for further care and evaluation of the aforementioned symptoms. The patient was seen and evaluated emergency department. Patient found to have clinical symptoms consistent with CVA and was within the therapeutic window for tPA. tPA was administered with in the emergency department with improvement in symptoms. Patient admitted to ICU due to increased risk of worsening symptoms after medical stabilization. Patient denies fever, chills, chest pain, palpitation, adductive cough, skin rash, rec ent contact, known exposure to COVID-19. Patient has history of Hypertension, Diabetes and hyperlipidemia. Patient has no history of smoking, alcohol or drug abuse. 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 Patient . Patient has no children. No known drug allergies. Patient alert, awake, weak, resting on room air. O2 saturation 97%. No acute respiratory distress. Patient afebrile, no leukocytosis, Blood pressure 114/76 , Pulse 61 , respirations 16 CChest xray done 09/28/21 reported Minimal CHF Patient is on S/C Lovenox, Pepcid, Albuterol inhaler Objective Vital Signs - 12hr 09/30/21 09/30/21 10/01/21 22:02 23:02 03:59 Temperature 97.6 F 97.6 F Pulse Rate 74 71 66 Respiratory 16 15 Rate Blood Pressure 123/80 113/71 106/71 O2 Sat by Pulse 97 96 Oximetry 10/01/21 06:58 Temperature 97.6 F Pulse Rate 64 Respiratory 18 Rate Blood Pressure 134/84 O2 Sat by Pulse 99 Oximetry Constitutional: no acute distress, alert Eyes: non-icteric ENT: oropharynx moist Neck: supple, no lymphadenopathy, no JVD Effort: normal Ascultation: Bilateral: diminished breath sounds Percussion: Bilateral: not dull Cardiovascular: regular rate and rhythm, other (S1,S2) Gastrointestinal: normoactive bowel sounds, soft, non-tender Integumentary: normal Extremities: no cyanosis, no edema, pink and warm, pulses normal Neurologic: normal mental status, pupils equal and round, CN II-XII normal, other (Power grade 3/5 left lower extremity, Power grade 3-4/5 left upper extremity) Psychiatric: mood appropriate, tearful CBC and BMP: 10/01/21 05:23 10/01/21 05:23 ABG, PT/INR, D-dimer: PT/INR, D-dimer PT 12.6 Sec. (12.2-14.9) 09/28/21 11:57 INR 0.84 (0.87-1.13) L 09/28/21 11:57 Abnormal lab findings: Abnormal Labs 09/28/21 09/28/21 09/28/21 11:20 11:57 11:57 MCV 97 H MCH Lymph % (Auto) 8.6 L Lymph # (Auto) 0.7 L Seg Neutrophils % 85.6 H INR 0.84 L Thrombin Time 20.3 H Potassium Carbon Dioxide BUN Glucose POC Glucose 134 H Hemoglobin A1c CK-MB (CK-2) 09/28/21 09/29/21 09/29/21 11:57 08:15 12:17 MCV MCH Lymph % (Auto) Lymph # (Auto) Seg Neutrophils % INR Thrombin Time Potassium Carbon Dioxide BUN 24 H Glucose 157 H POC Glucose 119 H 166 H Hemoglobin A1c CK-MB (CK-2) 4.5 H 09/29/21 09/29/21 09/30/21 16:17 21:25 04:18 MCV 95 H MCH 33 H Lymph % (Auto) Lymph # (Auto) Seg Neutrophils % INR Thrombin Time Potassium Carbon Dioxide BUN Glucose POC Glucose 219 H 176 H Hemoglobin A1c CK-MB (CK-2) 09/30/21 09/30/21 09/30/21 04:18 04:18 10:46 MCV MCH Lymph % (Auto) Lymph # (Auto) Seg Neutrophils % INR Thrombin Time Potassium 3.2 L Carbon Dioxide BUN Glucose 158 H POC Glucose 231 H Hemoglobin A1c 7.5 H CK-MB (CK-2) 09/30/21 09/30/21 10/01/21 17:17 21:00 05:23 MCV 97 H MCH 33 H Lymph % (Auto) Lymph # (Auto) Seg Neutrophils % INR Thrombin Time Potassium Carbon Dioxide BUN Glucose POC Glucose 188 H 158 H Hemoglobin A1c CK-MB (CK-2) 10/01/21 10/01/21 05:23 08:06 MCV MCH Lymph % (Auto) Lymph # (Auto) Seg Neutrophils % INR Thrombin Time Potassium Carbon Dioxide 21 L BUN 29 H Glucose 165 H POC Glucose 183 H Hemoglobin A1c CK-MB (CK-2) Chest x-ray: report reviewed, image reviewed Additional Studies: CHEST 1 VIEW 09/28/2021 12:07 PM INDICATION / CLINICAL INFORMATION: Dyspnea. COMPARISON: None available. FINDINGS: SUPPORT DEVICES: None. HEART / MEDIASTINUM: Mild cardiomegaly LUNGS / PLEURA: Trace left pleural effusion is identified. There is mild central pulmonary venous congestion. No infiltrate or pneumothorax. ADDITIONAL FINDINGS: No significant additional findings. IMPRESSION: 1. Minimal CHF Allied health notes reviewed: nursing
[2021-10-01] MEDS: INSULIN REGULAR, HUMAN 100 UNITS/1 ML SUB-Q SCH ×3 (09:14→17:06)
[2021-10-01] MEDS: metFORMIN 500 MG TAB PO SCH ×2 (09:14→17:16)
--- NOTE | 2021-10-01 10:10 | Discharge Summary ---
Providers - Providers Date of Admission: 09/28/21 15:06 Attending physician: RUTH CERNA MD 09/28/21 15:06 Occupational Therapy Evaluate and Treat [CONS] Routine Comment: Reason For Exam: Neuro deficits Physical Therapy Evaluation and Treat [CONS] Routine Comment: Reason For Exam: Neuro deficits 09/29/21 08:03 Consult to Physician [CONS] Routine Comment: left mess./ jose angel Consulting Provider: JONO LEES Physician Instructions: Reason For Exam: Acute CVA Speech Therapy Evaluation and Treat [CONS] Routine Reason For Exam: Acute CVA 09/29/21 08:04 Consult to Physician [CONS] Routine Comment: noted/ jose angel Consulting Provider: LAURITA FUENTES Physician Instructions: Reason For Exam: Acute CVA s/p tPA 09/29/21 16:29 Consult to Dietitian/Nutrition [CONS] Routine Physician Instructions: Reason For Exam: Reason for Consult: Diet education 09/29/21 17:11 Consult to Physician [CONS] Routine Comment: Consulting Provider: PUSHPA LUNA Physician Instructions: Reason For Exam: AFib with RVR Primary care physician: SYLVIA LONG Hospitalization Reason for admission: CVA Condition: Stable Hospital course: This is a 71-year-old male with known past medical history of HTN, DM, HLD, bilateral cataracts, and paroxysmal afib noncompliant with AC, and previous stroke admitted for Acute CVA s/p tPA Hospital Course to Date: 09/29: Symptoms improved post IV tPA, still with mild left-sided weakness. VSS. Plan for repeat CT head/brain At 1500, 24hrs post tPA. 2D echo and MRI brain pending. Neurology recommendations noted and appreciated. If CT head stable will initiate ASA and VTE proph in the am. PT/OT/Speech consulted. 09/30: Went into Afib with RVR, HR in the 140s s/p X1 dose of IV amiodarone bolus. 2D echo reviewed, EF 50-55%, no evidence of PFO. Cardiology consulted. Neuro status is unchanged, repeat CT brain noted, see report for detail, no evidence of bleed. MRI brain pending. ASA and VTE proph initiated for now. Resume coumadin if okay with cardio and Neuro. Patient is refusing subQ insulin, will resume home metformin. Patient is stable for transfer to telemetry. 10/01: Patient seen and examined, doing well. He unfortunately at some point was taking WARFARIN AND ELIQUIS TOGETHER, BUT LATER STOPPED BOTH MONTHS AGO. I did speak with him and his family and provided extensively counselling on the need to take one and stop the other. He chose Eliquis. He will be going to the IRU and as a result will restart Eliquis on Monday, 3 days from today Patient was not initiated on aspirin as he takes Eliquis. Assessment and Plan #CVA (Cerebral Vascular Accident) s/p tPA #Left Hemiparesis - Presented with sudden onsent eft-side weakness and paralysis - TeleNeurology saw patient in the ED, S/p tPA - Symptoms improved post tPA, remains with mild left-sided weakness - Plan for repeat CT head/brain At 1500 24hrs post tPA - MRI brain pending - 2D Echo reviewed, EF 50-55%, no evidence of PFO - Lipid panel noted, hgbA1c ordered - Statin initiated - Neurology consulted, appreciated recommendations - Repeat CT head noted, see report for detail, no evidence of bleed - ASA and VTE proph initiated for now. - Continue Neuro check per protocol - PT/OT/Speech ordered - Aspiration and Fall precautions - Of note, patient has history of coumadin was on coumadin at home. - Per patient he needs cataracts surgery and he can't get it due to AC, so he stop taking his coumadin without coordinating with his MDs. Per patient he has not taking his AC for at least 2 months - Resume coumadin if okay with cardio and Neuro. #H/o Paroxysmal Atrial Fibrillation #Hypertension & Hyperlipidemia - Noncompliant with coumadin, per patient he has not taking meds for at least 2 months - Went into Afib with RVR overnight. S/p X1 dose Amiodarone bolus - Echo LVEF 50-55% - Cardiology consulted - Continue blood pressure monitor per protocol - Maintain MAP above 65 - ASA and VTE proph initiated - Resume coumadin if okay with cardio and Neuro. #Type 2 Diabetes Mellitus with Hyperglycemia - HgbA1c 7.5 - BG check and SSI ACHS- patient is refusing subQ insulin - Home metformin resumed - Avoid hypoglycemia Disposition: [facility] Final Discharge Diagnosis (Prints w/discharge instructions): CVA. Atrial fibrillation with RVR Time spent for discharge: 35 minutes Core Measure Documentation - Palliative Care Palliative Care/ Comfort Measures: Not Applicable - Core Measures Any of the following diagnoses?: stroke - Stroke Discharge Requirements Statin for LDL = or >70 mg/dl on DC: Yes Anticoag for atrial fib/atrial flutter: Yes Antithrombotic for ischemic stroke: Yes Exam - Physical Exam Narrative exam: VITAL SIGNS: Reviewed. GENERAL: The patient appears normally developed, Vital signs as documented. HEAD: No signs of head trauma. EYES: Pupils are equal. Extraocular motions intact. EARS: Hearing grossly intact. MOUTH: Oropharynx is normal. NECK: No adenopathy, no JVD. CHEST: Chest with clear breath sounds bilaterally. No wheezes, rales, or rhonchi. CARDIAC: Regular rate and rhythm. S1 and S2, without murmurs, gallops, or rubs. VASCULAR: No Edema. Peripheral pulses normal and equal in all extremities. ABDOMEN: Soft, non tender and non distended. No rebound or guarding, and no masses palpated. Bowel Sounds normal. MUSCULOSKELETAL: Good range of motion of all major joints. Extremities without clubbing, cyanosis or edema. NEUROLOGIC EXAM: Alert and oriented x 3 No focal sensory or strength deficits on the right side. 4/5 motor strength on the left upper and lower extremity.. Speech normal. Follows commands. PSYCHIATRIC: Mood normal. SKIN: detail exam as documented in skin assessment - Constitutional Vitals: Temp Pulse Resp BP Pulse Ox 97.6 F 64 18 134/84 99 10/01/21 06:58 10/01/21 06:58 10/01/21 06:58 10/01/21 06:58 10/01/21 06:58 Plan Activity: advance as tolerated, fall precautions Diet: diabetic Special Instructions: record daily weights, record daily BP diary, record blood sugar diary Care Plan Goals: MUST FOLLOW WITH CARDIOLOGY-YOUR PRIMARY PRODUCT SAFETY CONSULTANT Follow up with: MORALES ISRAEL MD [Referring] - 7 Days ALICIA PARRISH MD [Staff Physician] - 7 Days Prescriptions: AtorvaSTATin [Lipitor] 40 mg PO QHS #30 tablet Aspirin [Aspirin BABY CHEW TAB] 81 mg PO QDAY #30 tab.chew Apixaban [Eliquis] 5 mg PO BID #60 Metoprolol [Lopressor TAB] 25 mg PO BID #60 tablet Famotidine [Pepcid] 20 mg PO QDAY #30 tablet
[2021-10-01] MEDS: ENOXAPARIN 40 MG/0.4 ML INJ SUB-Q SCH (10:27)
[2021-10-01] MEDS: METOPROLOL TARTRATE 25 MG TAB PO SCH (10:27)
[2021-10-01] MEDS: FAMOTIDINE 20 MG TAB PO SCH (10:27)
[2021-10-01] MEDS ORDERED: ASPIRIN 325 MG TAB PO NR (11:53)
--- NOTE | 2021-10-01 14:13 | Progress Note ---
Assessment and Plan - Patient Problems (1) Paroxysmal atrial fibrillation Current Visit: Yes Status: Acute Plan to address problem: 71-year-old man with a history of paroxysmal atrial fibrillation, noncompliant with his prescribed warfarin, presents with an acute CVA treated with tPA in the emergency room. There has been some gradual improvement in his left hemiparesis. Echocardiogram shows left ventricular ejection fraction 50 to 55%, and negative contrast bubble study. On initial presentation, he was in sinus rhythm but has reverted to atrial fibrillation. At this time, we will not recommend pharmacologic on mechanical efforts to acutely restore sinus rhythm, instead add low-dose metoprolol for rate control. Patient will need long-term oral anticoagulation, Eliquis 5 mg twice daily will be substituted for warfarin which he reported intolerance. Timing of initiation of Eliquis will be on the recommendation of the managing neurologist. Stable for cardiac discharge. Subjective Date of service: 10/01/21 Principal diagnosis: CVA s/p tPA; L. Hemiparesis; H/O PAF; HTN; DM II Interval history: Patient is comfortable, no new cardiac complaints, no new cardiac events reported. Objective Vital Signs Temp Pulse Pulse Resp BP Pulse Ox 10/01/21 11:41 97.7 F 61 114/76 97 10/01/21 06:58 97.6 F 64 18 134/84 99 10/01/21 03:59 97.6 F 66 15 106/71 96 09/30/21 23:02 97.6 F 71 16 113/71 97 09/30/21 22:02 74 123/80 09/30/21 20:00 74 74 16 95 09/30/21 19:31 97.3 F L 74 16 123/80 95 09/30/21 16:40 82 12 117/75 98 09/30/21 16:30 82 16 117/75 96 09/30/21 16:00 98.9 F 85 85 18 117/79 97 09/30/21 15:00 80 13 117/79 95 - Physical Examination HEENT: Positive: PERRL Neck: Positive: neck supple Cardiac: Positive: irregularly irregular Lungs: Positive: Decreased Breath Sounds Neuro: Positive: Other (Left hemiparesis following acute CVA) Abdomen: Positive: Soft Skin: Positive: Clear Extremities: Absent: edema - Labs and Meds CBC 10/01/21 Range/Units 05:23 WBC 6.3 (4.5-11.0) K/mm3 RBC 4.30 (3.65-5.03) M/mm3 Hgb 14.0 (11.8-15.2) gm/dl Hct 41.6 (35.5-45.6) % Plt Count 208 (140-440) K/mm3 Comprehensive Metabolic Panel 10/01/21 Range/Units 05:23 Sodium 138 (137-145) mmol/L Potassium 3.7 (3.6-5.0) mmol/L Chloride 102.5 (98-107) mmol/L Carbon Dioxide 21 L (22-30) mmol/L BUN 29 H (9-20) mg/dL Creatinine 1.3 D (0.8-1.3) mg/dL Glucose 165 H (75-100) mg/dL Calcium 8.8 (8.4-10.2) mg/dL - Allied health notes Allied health notes reviewed: nursing
[2021-10-01 16:15] VITALS: BP 107/72
== END 2021-10-01 17:08 | DRG 62 ==
LOC: ED 11:17 → CC1 15:06 → 4A 09-30 17:05
PROVIDERS: ADMIT Internal Medicine; ATTEND Internal Medicine
DX: I63.9 Cerebral infarction, unspecified (principal); G81.94 Hemiplegia, unspecified affecting left nondominant side; I48.0 Paroxysmal atrial fibrillation; W18.39XA Other fall on same level, initial encounter; Y93.89 Activity, other specified; Y92.89 Other specified places as the place of occurrence of the external cause; Y99.8 Other external cause status; I10 Essential (primary) hypertension; E78.5 Hyperlipidemia, unspecified; R26.81 Unsteadiness on feet; E11.65 Type 2 diabetes mellitus with hyperglycemia; Z82.49 Family history of ischemic heart disease and other diseases of the circulatory system
CPT/HCPCS: 36415; 70450; 70496; 70498; 70551; 71045; 80048; 80053; 80061; 80307; 81001; 82550; 82553; 82962; 83036; 83735; 83880; 84100; 84484; 85025; 85027; 85610; 85670; 85730; 93005; 93306; 93880; 94640; G0378; J3490; J7060; Q9967; C8929; J0282; J1170; J1650; J1815; J2997

== ENCOUNTER 2021-10-01 14:03 | Inpatient (IN) | payer MEDICARE ==
[2021-10-01] MEDS ORDERED: DEXTROSE 50% IN WATER (25GM) 50 ML SYRINGE IV PRN (16:21)
[2021-10-01] MEDS ORDERED: ACETAMINOPHEN 325 MG TAB PO PRN (16:27)
[2021-10-01] MEDS: INSULIN LISPRO 100 UNIT/ML SUB-Q SCH ×2 (16:30→21:31)
[2021-10-01] MEDS ORDERED: POLYETHYLENE GLYCOL 3350 17 GM POWDER PO PRN (16:39)
[2021-10-01] MEDS ORDERED: ONDANSETRON 4 MG ODT TAB PO PRN (16:39)
[2021-10-01] MEDS ORDERED: ALBUTEROL 2.5 MG/3 ML NEBU IH PRN (16:39)
[2021-10-01] MEDS ORDERED: METOCLOPRAMIDE 10 MG TAB PO PRN (16:40)
[2021-10-01] MEDS: metFORMIN 500 MG TAB PO SCH (18:19)
[2021-10-01] MEDS: METOPROLOL TARTRATE 25 MG TAB PO SCH (21:31)
[2021-10-02 06:32] LABS: Basophils # (Auto) 0.1 K/mm3 (0.0-0.1); Basophils % (Auto) 1.3 % (0.0-1.8); Eosinophils # (Auto) 0.6 K/mm3 (0.0-0.4); Eosinophils % (Auto) 12.6 % (0.0-4.3); Hematocrit 39.5 % (35.5-45.6); Hemoglobin 13.6 gm/dl (11.8-15.2); Lymphocytes # (Auto) 1.1 K/mm3 (1.2-5.4); Lymphocytes % (Auto) 21.9 % (13.4-35.0); Mean Corpuscular HGB Conc 34 % (32-34); Mean Corpuscular Volume 96 fl (84-94); Monocytes # (Auto) 0.4 K/mm3 (0.0-0.8); Platelet Count 188 K/mm3 (140-440); Red Blood Count 4.13 M/mm3 (3.65-5.03); Red Cell Distribution Width 13.9 % (13.2-15.2)
[2021-10-02 06:46] LABS: Alanine Aminotransferase 11 units/L (7-56); Albumin 3.7 g/dL (3.9-5); BUN/Creatinine Ratio 28; Blood Urea Nitrogen 25 mg/dL (9-20); Calcium 8.4 mg/dL (8.4-10.2); Hemolysis Index 7
[2021-10-02] MEDS: metFORMIN 500 MG TAB PO SCH ×2 (08:30→17:25)
--- NOTE | 2021-10-02 09:22 | History and Physical Report ---
History of Present Illness Date: 10/02/21 Date of admission: 10/01/21 17:29 Chief Complaint: CVA History of present illness: 71-year-old male who had a abrupt onset of weakness on the left nondominant side starting in the leg. His friend was on her way to pick him up for a scheduled appointment and after not having a response at the door she called 911 and paramedics found the patient with left-sided weakness. He was brought to the ER where he quickly underwent administration of tPA with resolution of some symptoms. Head CT showed no acute intracranial abnormality, chronic focal infarcts in the right frontal and left occipital lobe with moderate volume loss and chronic white matter changes. Head and neck CTA showed no occlusions or significant stenosis. Carotid Doppler showed less than 50% stenosis bilaterally. Repeat head CT 24 hours after tPA administration showed no evidence of hemorrhage and similar picture as prior CT. Brain MRI on 09 30 showed acute to subacute ischemic infarct in the right ANNA distribution, chronic focal infarct in the right frontal lobe and left occipital lobe, mild diffuse volume loss, moderate chronic microangiopathy bilaterally. According to the patient reportedly from medical records the patient was noncompliant with medications for atrial fibrillation which had recently been diagnosed. He stopped taking aspirin and Coumadin and at one point was taking Coumadin and Eliquis at the same time unbeknownst to his physician. His diabetes is somewhat controlled with an A1c of 7.5. Total cholesterol 164, LDL 96, HDL 52, triglycerides 136. He went into A. fib with RVR during his work-up, cardiology was consulted. Neurology was also consulted. Due to the patient's issues with prior medications, neurology recommend starting Plavix. Cardiology recommending using Eliquis which we will start on Monday. 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 In total, greater than 75 minutes was spent [id number] with the patient with greater than half that time spent counseling coordinating care concerning chronic medical conditions such as atrial fibrillation, diabetes, hypertension, diet modification, stroke prognosis and recovery, secondary stroke prevention. 45 minutes was invested on 10/01/2021 and a [id number] manner reviewing the patient's medical records, all imaging and labs, therapy notes, nursing notes, speaking with telemetry and placing orders to admit the patient. Advance care planning Patient was asked permission to proceed with discussing advance care planning and consented. He does have capacity to have this conversation and direct his wishes. According to the patient, his healthcare power of finance attorney is his nephew and he does have advanced directives which state that he wishes to be DNR and to not try any extraordinary measures past 48 hours. In discussing the seemingly contradictory of nature of these 2 items. We had a prolonged discussion about what happens if we were to find him in the midst of or after a cardiac arrest or respiratory arrest. Patient understands legal aspects of advanced directives fully and after explaining the medical side opted to be a full code without intubation, does not want extraordinary measures such as PEG tubes or other machines utilized to keep him alive. His is agreeable to IVF and IV antibiotics if the illness is thought to be survivable. In the patient's own words he does "not want to be a vegetable and have to rely on machines" to keep him alive. In total, 32 minutes was invested in discussing advance care planning. After the patient was medically stabilized they were transferred for further rehabilitation. All available medical records have been reviewed. Plan of care was discussed with patient. Past History Past Medical History: atrial fib, diabetes, hypertension, stroke (Two remote CVAs noted on imaging), other (Cataracts) Past Surgical History: Other (Orthopedic surgeries, skin graft on upper thigh) Social history: , Lives alone. denies: smoking, alcohol abuse Family history: diabetes, hypertension Medications and Allergies Allergies Allergy/AdvReac Type Severity Reaction Status Date / Time No Known Allergies Allergy Unverified 09/28/21 11:57 Home Medications Medication Instructions Recorded Confirmed Last Taken Type Metformin HCl [metFORMIN] 1,000 mg PO BID 09/30/21 10/01/21 10/01/21 17:30 History Apixaban [Eliquis] 5 mg PO BID #60 10/01/21 10/01/21 10/01/21 10:00 Rx Aspirin [Aspirin BABY CHEW TAB] 81 mg PO QDAY #30 tab.chew 10/01/21 10/01/21 10/01/21 10:00 Rx AtorvaSTATin [Lipitor] 40 mg PO QHS #30 tablet 10/01/21 10/01/21 09/30/21 22:00 Rx Famotidine [Pepcid] 20 mg PO QDAY #30 tablet 10/01/21 10/01/21 10/01/21 10:00 Rx Insulin Regular, Human [HumuLIN R] 0 units SUB-Q ACHS units 10/01/21 10/01/21 10/01/21 12:00 Rx Metoprolol [Lopressor TAB] 25 mg PO BID #60 tablet 10/01/21 10/01/21 10/01/21 10:00 Rx Active Meds: Active Medications Acetaminophen (Acetaminophen 325 Mg Tab) 650 mg PO Q6H PRN PRN Reason: Pain MILD(1-3)/Fever >100.5/[place] Albuterol (Albuterol 2.5 Mg/3 Ml Nebu) 2.5 mg IH Q4HRT PRN PRN Reason: Shortness Of Breath Apixaban (Apixaban 5 Mg Tab) 5 mg PO Q12HR [facility]; Protocol Atorvastatin Calcium (Atorvastatin 40 Mg Tab) 40 mg PO QHS [facility] Last Admin: 10/01/21 21:31 Dose: 40 mg Bisacodyl (Bisacodyl 10 Mg Rect Supp) 10 mg [place] QDAY PRN PRN Reason: Constipation Clopidogrel Bisulfate (Clopidogrel 75 Mg Tab) 75 mg PO QDAY [facility] Dextrose (Dextrose 50% In Water (25gm) 50 Ml Syringe) 50 ml IV Q30MIN PRN; Protocol PRN Reason: Hypoglycemia Famotidine (Famotidine 20 Mg Tab) 20 mg PO QDAY [facility] Insulin Human Lispro (Insulin Lispro 100 Unit/Ml) 0 unit SUB-Q [facility]; Protocol Last Admin: 10/01/21 21:31 Dose: Not Given Metformin HCl (Metformin 500 Mg Tab) 1,000 mg PO BIDDIAB [facility] Last Admin: 10/01/21 18:19 Dose: Not Given Metoclopramide HCl (Metoclopramide 10 Mg Tab) 10 mg PO Q6H PRN PRN Reason: Nausea And Vomiting Metoprolol Tartrate (Metoprolol Tartrate 25 Mg Tab) 25 mg PO BID [facility] Last Admin: 10/01/21 21:31 Dose: Not Given Ondansetron HCl (Ondansetron 4 Mg Odt Tab) 4 mg PO Q8H PRN PRN Reason: Nausea And Vomiting Oxycodone/Acetaminophen (Oxycodone /Acetaminophen 5-325mg Tab) 1 tab PO Q8H PRN PRN Reason: Pain, Moderate (4-6) Polyethylene Glycol (Polyethylene Glycol 3350 17 Gm Powder) 17 gm PO QDAY PRN PRN Reason: Constipation Review of Systems All systems: negative (ROS negative for 10 systems except as noted below with pertinent positives and negatives.) Constitutional: fatigue, no fever, no chills Eyes: bilateral: decreased vision (Cataracts) Ears, nose, mouth and throat: no decreased hearing, no dysphagia Cardiovascular: no chest pain, no palpitations, no rapid/irregular heart beat, no edema, no syncope, no shortness of breath Respiratory: no shortness of breath, no dyspnea on exertion Gastrointestinal: no nausea, no vomiting Genitourinary Male: no dysuria, no incontinence Musculoskeletal: no arm numbness/tingling, no leg numbness/tingling Integumentary: no rash, no pruritis, no redness, no sores Neurological: paralysis, weakness, change in mentation (Possibly), memory loss (Possibly), gait dysfunction, no numbness, no tingling, no lack of coordination Psychiatric: sadness/tearfullness Endocrine: high blood sugars Exam - Exam Narrative exam: MUSCULOSKELETAL SPECIALTY EXAM CONSTITUTIONAL: Well developed, well nourished, appropriately groomed. RIGHT hand dominant. LYMPHATIC: No appreciable abnormalities palpable in neck RESPIRATORY: Clear to auscultation bilaterally, no increased work of breathing CARDIOVASCULAR: Regular Rate/ Rhythm currently, no swelling, edema or tenderness in BUE or BLE. Pulses palpable in all extremities. All extremities warm. GI: + bowel sounds, soft, NTTP, nondistended. INTEGUMENTARY: Normal, no lesion, rash, masses or bruising noted in extremities. MUSCULOSKELETAL: Mild tenderness over the left hip, otherwise BUE and BLE normal without defect, crepitus, subluxation, effusion, arthritic changes or TTP. SA EF WE EE FF FA HF KE ADF EHL APF R 5/5 throughout L 4+/5 4/5 4/5 4/5 4+/5 4+/5 3/5 4-/5 4/5 4/5 4/5 ROM within normal limit Tone within normal limit NEURO: CN II : Visual chaney full to confrontation CN II, III : PERRL CN III, IV, : EOMI CN V : Facial sensation intact CN VII : Left facial droop CN VIII : Hearing intact to finger rustle CN IX, X : Palate/uvula elevate midline, phonation normal CN XI : Intact shoulder shrug and head rotation CN XII : Tongue protrudes slightly left Sensation intact in all extremities without extinction. Reflexes 1+ bilaterally at biceps, brachioradialis and patella. No clonus at ankles. Coordination intact in BUE. No tremor noted in 4 extremities. Naming and repetition intact. Follows 2 step commands. Aphasia not appreciated Dysarthria not appreciated Dysphagia not appreciated Neglect not appreciated POSTURE and GAIT: Sitting posture poor, pushes to the left. Balance and gait deferred until seen with therapy. PSYCH: Alert, oriented x3, affect appears euthymic with some emotional lability at times. Insight appears intact. - Constitutional Vitals: Vital Signs - 12hr 10/01/21 10/02/21 22:53 08:19 Temperature 97.6 F Pulse Rate 65 Respiratory 18 Rate Blood Pressure 140/86 O2 Sat by Pulse 96 95 Oximetry - Labs CBC & Chem 7: 10/02/21 06:01 10/02/21 06:01 Labs: Laboratory Results - last 72 hr 10/02/21 10/02/21 10/02/21 06:01 06:01 08:16 WBC 5.1 RBC 4.13 Hgb 13.6 Hct 39.5 MCV 96 H MCH 33 H MCHC 34 RDW 13.9 Plt Count 188 Lymph % (Auto) 21.9 [place] % (Auto) 7.0 Eos % (Auto) 12.6 H Baso % (Auto) 1.3 Lymph # (Auto) 1.1 L [place] # (Auto) 0.4 Eos # (Auto) 0.6 H Baso # (Auto) 0.1 Seg Neutrophils % 57.2 Seg Neutrophils # 2.9 Sodium 140 Potassium 3.5 L Chloride 103.0 Carbon Dioxide 25 Anion Gap 16 BUN 25 H Creatinine 0.9 Estimated GFR > 60 BUN/Creatinine Ratio 28 Glucose 147 H POC Glucose 146 H Calcium 8.4 Total Bilirubin 0.70 AST 16 ALT 11 Alkaline Phosphatase 54 Total Protein 6.6 Albumin 3.7 L Albumin/Globulin Ratio 1.3 Assessment and Plan Assessment and plan: Patient was assessed and evaluated for Acute Inpatient Rehab Unit. Due to the patients above-mentioned medical complexity, along with decreased functional mobility and self care, this patient continues to require and be appropriate for a comprehensive, multidisciplinary [id number] rehabilitation program. These needs cannot be met in an outpatient or other less intensive setting. The patient would continue to benefit from skilled therapy intervention for at least 3 hours per day, five days a week, with techniques specific to the needs of the patient to improve function, activities of daily living, and reintegration into the community. The patient continues to require: -- OT to improve ROM, self-care, and learn use of adaptive equipment -- PT to improve strength and balance, functional transfers, and ambulation with energy conservation techniques to improve functional mobility -- HAND WASHER to address cognitive deficits, will order this on Monday. Swallowing ability was assessed on the acute care side and discussed with HAND WASHER Monday ho fabien patient now stating that he feels his cognition is slipping from where he previously was. -- 24 hour RN to ensure and prevent skin breakdown, promote progressive independence while ensuring safety, ensure education regarding medications, and incorporation of the rehabilitation at the bedside -- 24 hour Preschool Teacher Aide to coordinate this interdisciplinary program, and to manage/prevent complications as a result of the patients medical comorbidities. -Plan of care by day 4 -Weekly team conferences With such a program, there is a reasonable certainty that the goals individualized for this patient can be achieved within the specified length of stay. CVA: Continue Secondary Stroke Prevention (Antithrombotic, Statin (Goal LDL-C <70), BP control (Goal <140/90), GLU control (Goal A1c <7), and lifestyle modification). Monitor for recurrent stroke or post-stroke recrudescence. Continue neuromotor therapy as above. Family training when available. Monitor for post stroke depression, cognitive deficits, seizure, dysphagia, aphasia, shoulder hand syndrome, sensory deficits, spasticity, bowel/bladder deficits, sleep disturbance, vision deficits and DVT. Prognosis for recovery and Secondary Stroke Prevention discussed at length along with necessity of maintaining compliance with medications. Follow up with Neurology. No driving until cleared by Neurologist. Paroxysmal atrial fibrillation: Appreciate cardiology input on the acute care side. We will maintain telemetry while patient is in-house. Start Eliquis on Monday. Patient will need to follow-up with cardiology as an outpatient. Continue rate control. Monitor for any signs of worsening cardiac distress, chest pain, palpitations. Diabetes: Continue home metformin. Patient does state that he has been compliant with metformin dosing at home and yet his A1c is still elevated at 7.5%. Discussed with the patient that we will need to start another medication, will look to start glimepiride and monitor. Continue carb controlled diet, adjust medications as needed. Sliding scale insulin coverage as needed Hypertension: Continue medication. Monitor blood pressure. Adjust medications as needed for normotension. Hold for hypotension. Goal SBP <140 Hypokalemia: Slightly low at 3.5. Monitor and recheck on Monday for correction, if not improved will administer potassium chloride. Volume depletion: Encouraged oral intake. BUN slightly elevated at 25. Recheck on Monday and may utilize IV fluids if he has not corrected by then. Questionable cognitive decline after CVA: Consult speech therapy on Monday for further investigation ADL dysfunction: OT will work on improving ability to perform ADLs (including assistive devices) to increase independence and decrease caregiver burden and improve functional transfers and mobility training. Difficulty walking: PT will work on gait training and proper use of assistive devices and advance as appropriate to use of stairs and outside ambulation on uneven surfaces. Unsteadiness on feet: PT will work on improving static and dynamic sitting and standing balance as well as proper use of assistive devices to decrease risk of falls. Abnormality of gait: PT will work to improve safety and efficiency of gait through neuromotor training and gait training along with instruction on proper use of assistive devices. Muscle weakness: PT & OT will work on strengthening exercises to improve functional strength including mixture of closed and open kinetic chain e xercises. Debility: PT & OT will work on improving overall functional status to improve participation with ADLs, mobility and social involvement. Fatigue: PT & OT will work on improving endurance through aerobic exercises and therapeutic activity while monitoring patients tolerance for activity and vital signs as needed. DVT ppx: Lovenox until Eliquis is started on Monday Pain: Continue physical modalities in therapy and pain medications as needed to achieve functional pain control. Sleep: Monitor and address as needed. Bowel: Monitor and address as needed. Appetite: Monitor and address as needed. Discharge planning: Pending therapy progress and care plan meeting. Will continue discussion with therapy team, SW, patient and family. Based on the patient's issues with cognition, we may need to recommend supervision at discharge. We will see how he does over the coming days and work to try to advance him to the point of being able to be independent. Restrictions/ Precautions: Falls, A. fib WB status: FWB Functional Hx: ADLs: Independent Cognition: Independent Mobility: No AD Barriers to Discharge: Decreased mobility and ability to perform self care, balance deficits, weakness Estimated Length of Stay: 1418 days Discharge Destination: Home with family, [id number] will likely stay with the patient for up to a month according to the patient POST ADMISSION PHYSICIAN EVALUATION I have examined the patient and find that functional status, medical condition and appropriateness for IR[facility] admission are essentially unchanged from those described in the preadmission screening. Will monitor for worsening neurologic changes, secondary CVA, recrudescence, post drug depression, shoulder-hand syndrome, skin breakdown, DVT/PE, bowel and bladder complications and compl ications due to atrial fibrillation, diabetes, hypertension and electrolyte abnormalities. Will attempt to avoid occurrence of these issues or treat them if they present themselves.
[2021-10-02] MEDS ORDERED: ENOXAPARIN 40 MG/0.4 ML INJ SUB-Q SCH (10:00)
[2021-10-02] MEDS: METOPROLOL TARTRATE 25 MG TAB PO SCH ×2 (11:03→21:44)
[2021-10-02] MEDS: FAMOTIDINE 20 MG TAB PO SCH (11:03)
[2021-10-02] MEDS: INSULIN LISPRO 100 UNIT/ML SUB-Q SCH ×4 (11:04→21:49)
[2021-10-02] MEDS: CLOPIDOGREL 75 MG TAB PO SCH (11:04)
[2021-10-03] MEDS: METOPROLOL TARTRATE 25 MG TAB PO SCH ×2 (09:23→21:51)
[2021-10-03] MEDS: GLIMEPIRIDE 2 MG TAB PO SCH (09:24)
[2021-10-03] MEDS: FAMOTIDINE 20 MG TAB PO SCH (09:24)
[2021-10-03] MEDS: CLOPIDOGREL 75 MG TAB PO SCH (09:24)
[2021-10-03] MEDS: metFORMIN 500 MG TAB PO SCH ×2 (09:24→18:00)
[2021-10-03] MEDS: INSULIN LISPRO 100 UNIT/ML SUB-Q SCH ×3 (09:25→17:00)
[2021-10-04] MEDS: INSULIN LISPRO 100 UNIT/ML SUB-Q SCH ×5 (06:41→22:00)
[2021-10-04 07:45] LABS: Hematocrit 40.1 % (35.5-45.6); Hemoglobin 13.8 gm/dl (11.8-15.2); Mean Corpuscular HGB Conc 35 % (32-34); Mean Corpuscular Volume 95 fl (84-94); Platelet Count 217 K/mm3 (140-440); Red Blood Count 4.21 M/mm3 (3.65-5.03)
[2021-10-04 08:00] LABS: BUN/Creatinine Ratio 20; Blood Urea Nitrogen 18 mg/dL (9-20); Hemolysis Index 5
--- NOTE | 2021-10-04 08:18 | Progress Note ---
Subjective Date of service: 10/04/21 Principal diagnosis: CVA Interval history: 71-year-old male who had a abrupt onset of weakness on the left nondominant side starting in the leg. His friend was on her way to pick him up for a scheduled appointment and after not having a response at the door she called 911 and paramedics found the patient with left-sided weakness. He was brought to the ER where he quickly underwent administration of tPA with resolution of some symptoms. Head CT showed no acute intracranial abnormality, chronic focal infarcts in the right frontal and left occipital lobe with moderate volume loss and chronic white matter changes. Head and neck CTA showed no occlusions or significant stenosis. Carotid Doppler showed less than 50% stenosis bilaterally. Repeat head CT 24 hours after tPA administration showed no evidence of hemorrhage and similar picture as prior CT. Brain MRI on 09 30 showed acute to subacute ischemic infarct in the right ANNA distribution, chronic focal infarct in the right frontal lobe and left occipital lobe, mild diffuse volume loss, moderate chronic microangiopathy bilaterally. According to the patient reportedly from medical records the patient was noncompliant with medications for atrial fibrillation which had recently been diagnosed. He stopped taking aspirin and Coumadin and at one point was taking Coumadin and Eliquis at the [facility] time unbeknownst to his physician. His diabetes is somewhat controlled with an A1c of 7.5. Total cholesterol 164, LDL 96, HDL 52, triglycerides 136. He went into A. fib with RVR during his work-up, cardiology was consulted. Neurology was also consulted. Due to the patient's issues with prior medications, neurology recommend starting Plavix. Cardiology recommending using Eliquis which we will start on Monday. 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 Interval History: Patient is participating in therapy and making reasonable progress. Taking rest breaks as needed. +BM. Denies pain, palpitations, dyspnea, cough, N/V, weakness. Left hip pain improved today, monitor CVA: No signs of worsening neurologic function, stroke recrudescence, shoulder- hand syndrome, bowel or bladder incontinence. Continue secondary stroke prevention. 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 Continue therapy. Atrial fibrillation: Continue rate control, start Eliquis today. Continue on telemetry, no acute events. Diabetes: Glucose doing better since starting glimepiride. Continue diet and medications. Look to try to discharge on oral medications only Hypertension: Blood pressures been elevated, metoprolol likely would not be tolerated a higher dose due to heart rate. 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 Continue therapy interventions to improve patient's ability to ambulate and perform ADLs with the least amount of assistance as possible. All records, vitals, labs and medications were reviewed. No other issues per patient, nursing or therapy. Objective - Exam Narrative Exam: MUSCULOSKELETAL SPECIALTY EXAM CONSTITUTIONAL: Well developed, well nourished, appropriately groomed. RIGHT hand dominant. RESPIRATORY: Clear to auscultation bilaterally, no increased work of breathing CARDIOVASCULAR: Regular Rate/ Rhythm currently, no swelling, edema or tenderness in BUE or BLE. All extremities warm. GI: + bowel sounds, soft, NTTP, nondistended. INTEGUMENTARY: Normal, no lesion, rash, masses or bruising noted in extremities. MUSCULOSKELETAL: BUE and BLE normal without defect, crepitus, subluxation, effusion, arthritic ch anges or TTP. SA EF WE EE FF FA HF KE ADF EHL APF R 5/5 throughout L 4+/5 4/5 4/5 4/5 4+/5 4+/5 4/5 4-/5 4/5 4/5 4/5 ROM within normal limit Tone within normal limit NEURO: CN VII : Left facial droop CN XII : Tongue protrudes slightly left Sensation intact in all extremities without extinction. No tremor noted in 4 extremities. Naming and repetition intact. Follows 2 step commands. Aphasia not appreciated Dysarthria not appreciated Dysphagia not appreciated Neglect not appreciated POSTURE and GAIT: Sitting posture poor, pushes to the left. PSYCH: Alert, oriented x3, affect appears euthymic with some emotional lability at times. Insight appears intact. - Constitutional Vitals: Vital Signs - 12hr 10/03/21 10/03/21 10/04/21 21:51 22:00 01:00 Temperature Pulse Rate 59 L 61 Pulse Rate [ 61 From Monitor] Respiratory 18 Rate Blood Pressure 149/83 O2 Sat by Pulse 98 Oximetry 10/04/21 10/04/21 10/04/21 04:14 07:31 08:05 Temperature 98.1 F 98.1 F Pulse Rate 67 61 Pulse Rate [ 61 From Monitor] Respiratory 16 18 Rate Blood Pressure 161/99 147/83 O2 Sat by Pulse 99 98 99 Oximetry - Allied health notes Allied health notes reviewed: nursing, PT, OT FIMS assessment as documented by PT/OT/ST: Locomotion- walk/wheelchair Ambulation Distance 100 - Labs CBC & Chem 7: 10/04/21 07:23 10/04/21 07:23 Labs: Laboratory Results - last 72 hr 10/02/21 10/02/21 10/02/21 06:01 06:01 08:16 WBC 5.1 RBC 4.13 Hgb 13.6 Hct 39.5 MCV 96 H MCH 33 H MCHC 34 RDW 13.9 Plt Count 188 Lymph % (Auto) 21.9 [place] % (Auto) 7.0 Eos % (Auto) 12.6 H Baso % (Auto) 1.3 Lymph # (Auto) 1.1 L [place] # (Auto) 0.4 Eos # (Auto) 0.6 H Baso # (Auto) 0.1 Seg Neutrophils % 57.2 Seg Neutrophils # 2.9 Sodium 140 Potassium 3.5 L Chloride 103.0 Carbon Dioxide 25 Anion Gap 16 BUN 25 H Creatinine 0.9 Estimated GFR > 60 BUN/Creatinine Ratio 28 Glucose 147 H POC Glucose 146 H Calcium 8.4 Total Bilirubin 0.70 AST 16 ALT 11 Alkaline Phosphatase 54 Total Protein 6.6 Albumin 3.7 L Albumin/Globulin Ratio 1.3 10/02/21 10/02/21 10/02/21 12:03 16:15 20:05 WBC RBC Hgb Hct MCV MCH MCHC RDW Plt Count Lymph % (Auto) [place] % (Auto) Eos % (Auto) Baso % (Auto) Lymph # (Auto) [place] # (Auto) Eos # (Auto) Baso # (Auto) Seg Neutrophils % Seg Neutrophils # Sodium Potassium Chloride Carbon Dioxide Anion Gap BUN Creatinine Estimated GFR BUN/Creatinine Ratio Glucose POC Glucose 188 H 154 H 206 H Calcium Total Bilirubin AST ALT Alkaline Phosphatase Total Protein Albumin Albumin/Globulin Ratio 10/03/21 10/03/21 10/03/21 09:10 11:20 16:30 WBC RBC Hgb Hct MCV MCH MCHC RDW Plt Count Lymph % (Auto) [place] % (Auto) Eos % (Auto) Baso % (Auto) Lymph # (Auto) [place] # (Auto) Eos # (Auto) Baso # (Auto) Seg Neutrophils % Seg Neutrophils # Sodium Potassium Chloride Carbon Dioxide Anion Gap BUN Creatinine Estimated GFR BUN/Creatinine Ratio Glucose POC Glucose 152 H 162 H 69 L Calcium Total Bilirubin AST ALT Alkaline Phosphatase Total Protein Albumin Albumin/Globulin Ratio 10/03/21 10/03/21 10/04/21 18:05 20:13 07:09 WBC RBC Hgb Hct MCV MCH MCHC RDW Plt Count Lymph % (Auto) [place] % (Auto) Eos % (Auto) Baso % (Auto) Lymph # (Auto) [place] # (Auto) Eos # (Auto) Baso # (Auto) Seg Neutrophils % Seg Neutrophils # Sodium Potassium Chloride Carbon Dioxide Anion Gap BUN Creatinine Estimated GFR BUN/Creatinine Ratio Glucose POC Glucose 112 H 117 H 127 H Calcium Total Bilirubin AST ALT Alkaline Phosphatase Total Protein Albumin Albumin/Globulin Ratio 10/04/21 10/04/21 07:23 07:23 WBC 6.0 RBC 4.21 Hgb 13.8 Hct 40.1 MCV 95 H MCH 33 H MCHC 35 H RDW 14.0 Plt Count 217 Lymph % (Auto) [place] % (Auto) Eos % (Auto) Baso % (Auto) Lymph # (Auto) [place] # (Auto) Eos # (Auto) Baso # (Auto) Seg Neutrophils % Seg Neutrophils # Sodium 138 Potassium 3.6 Chloride 100.4 Carbon Dioxide 25 Anion Gap 16 BUN 18 Creatinine 0.9 Estimated GFR > 60 BUN/Creatinine Ratio 20 Glucose 133 H POC Glucose Calcium 9.0 Total Bilirubin AST ALT Alkaline Phosphatase Total Protein Albumin Albumin/Globulin Ratio Assessment and Plan CVA: Continue Secondary Stroke Prevention (Antithrombotic, Statin (Goal LDL-C <70), BP control (Goal <140/90), GLU control (Goal A1c <7), and lifestyle modification). Monitor for recurrent stroke or post-stroke recrudescence. Continue neuromotor therapy as above. Family training when available. Monitor for post stroke depression, cognitive deficits, seizure, dysphagia, aphasia, shoulder hand syndrome, sensory deficits, spasticity, bowel/bladder deficits, sleep disturbance, vision deficits and DVT. Prognosis for recovery and Secondary Stroke Prevention discussed at length along with necessity of maintaining compliance with medications. Follow up with Neurology. No driving until cleared by Neurologist. Paroxysmal atrial fibrillation: Appreciate cardiology input on the acute care side. We will maintain telemetry while patient is in-house. Start Eliquis on Monday. Patient will need to follow-up with cardiology as an outpatient. Continue rate control with metoprolol. Monitor for any signs of worsening ca rdiac distress, chest pain, palpitations. Diabetes: Continue home metformin. Patient does state that he has been compliant with metformin dosing at home and yet his A1c is still elevated at 7.5%. Discussed with the patient that we will need to start another medication, will look to start glimepiride and monitor. Continue carb controlled diet, adjust medications as needed. Sliding scale insulin coverage as needed. Did have a single episode of mild hypoglycemia over the weekend at 71, otherwise glucose seems better controlled on glimepiride and metformin combination Hypertension: Continue metoprolol, blood pressure has been elevated and heart rate will not tolerate increases in metoprolol currently. Start low-dose amlodipine and monitor blood pressure. Adjust medications as needed for normotension. Hold for hypotension. Goal SBP <140 Hypokalemia: Resolved Volume depletion: Encouraged oral intake. Resolved Questionable cognitive decline after CVA: Consult speech therapy on Monday for further investigation ADL dysfunction: OT will work on improving ability to perform ADLs (including assistive devices) to increase independence and decrease caregiver burden and improve functional transfers and mobility training. Difficulty walking: PT will work on gait training and proper use of assistive devices and advance as appropriate to use of stairs and outside ambulation on u herve surfaces. Unsteadiness on feet: PT will work on improving static and dynamic sitting and standing balance as well as proper use of assistive devices to decrease risk of falls. Abnormality of gait: PT will work to improve safety and efficiency of gait through neuromotor training and gait training along with instruction on proper use of assistive devices. Muscle weakness: PT & OT will work on strengthening exercises to improve functional strength including mixture of closed and open kinetic chain exercises. Debility: PT & OT will work on improving overall functional status to improve p articipation with ADLs, mobility and social involvement. Fatigue: PT & OT will work on improving endurance through aerobic exercises and therapeutic activity while monitoring patients tolerance for activity and vital signs as needed. DVT ppx: Lovenox until Eliquis is started on Monday Pain: Continue physical modalities in therapy and pain medications as needed to achieve functional pain control. Sleep: Monitor and address as needed. Bowel: Monitor and address as needed. Appetite: Monitor and address as needed. Discharge planning: Pending therapy progress and care plan meeting. Will c ontinue discussion with therapy team, SW, patient and family. Based on the patient's issues with cognition, we may need to recommend supervision at discharge. We will see how he does over the coming days and work to try to advance him to the point of being able to be independent. Restrictions/ Precautions: Falls, A. fib WB status: FWB Functional Hx: ADLs: Independent Cognition: Independent Mobility: No AD Barriers to Discharge: Decreased mobility and ability to perform self care, balance deficits, weakness Estimated Length of Stay: 1418 days Discharge Destination: Home with family, [id number] will likely stay with the patient for up to a month according to the patient
[2021-10-04] MEDS: GLIMEPIRIDE 2 MG TAB PO SCH (10:02)
[2021-10-04] MEDS: metFORMIN 500 MG TAB PO SCH ×2 (10:03→18:03)
[2021-10-04] MEDS: METOPROLOL TARTRATE 25 MG TAB PO SCH ×2 (10:04→22:01)
[2021-10-04] MEDS: CLOPIDOGREL 75 MG TAB PO SCH (10:04)
[2021-10-04] MEDS: amLODIPine 5 MG TAB PO SCH (10:04)
[2021-10-04] MEDS: FAMOTIDINE 20 MG TAB PO SCH (10:04)
[2021-10-04] MEDS: APIXABAN 5 MG TAB PO SCH ×2 (10:04→22:01)
--- NOTE | 2021-10-04 19:23 | IRU Plan of Care ---
Interdisciplinary Plan of Care - IPOC IRU INTERDISCIPLINARY PLAN: [facility] Inpatient Rehab Unit Plan of Care IRU Interdisciplinary Care Plan Start: 10/02/21 13:08 Freq: Status: Active Protocol: Document 10/04/21 17:41 TH (Rec: 10/04/21 17:43 TH [id number]) IRU Interdisciplinary Care Plan Therapy Services Therapy Services Will Include: Physical Therapy,Occupational Query Text:Patient will be seen for a Therapy minimum of 3 hours of daily therapy 5 out of 7 days a week. Therapy intensity may be adjusted within a 7 consecutive day period to effectively serve the individual needs of the patient. Treatment Frequency/Intensity/Duration Treatment Frequency 5days/week Treatment Intensity 3 hours/day Treatment Duration 10-14 days Problem Area: Eating/Swallowing Eating/Swallowing Outcomes Consume Least Restrictive Diet ,Feed Self Eating/Swallowing Outcomes Consume Least Restrictive Diet ,Feed Self Problem Area: Bathing/Grooming Bathing/Grooming Outcomes Improve [place] w/ Grooming,Improve [place] w/ Bathing Bathing/Grooming Interventions ADL Training,Use of Assistive Devices,Therapeutic Exercise, Therapeutic Activity, Neuromuscular Re-Education, Balance Work,Activity Tolerance Work,Patient/ Caregiver Education Problem Area: Dressing Dressing Outcomes Improve [place] w/ UB Dressing,Improve [place] w/ LB Dressing Dressing Interventions ADL Training,Use of Assistive Devices,Neuromuscular Re- Education,Therapeutic Exercise ,Balance Work,Patient/ Caregiver Education Problem Area: Mobility Mobility Outcomes Improve [place] w/ Bed Mobility,Improve [place] w/ Ambulation,Improve [place] w/ Wheelchair Mobility Interventions Therapeutic Exercise, Neuromuscular Re-Ed.,Visual/ Perceptual Training,Activity Tolerance Work,Use of Assistive Devices,Patient/ Caregiver Education,Bed Mobility Work,W/C Mobility Work Problem Area: Transfers Transfers Outcomes Improve [place] w/ Bed Transfers,Improve [place] w/ Toilet Transfers,Improve [place] w/ Tub/Shower Transfers,Improve [place] w/ Car Transfers Transfers Interventions Transfer Training,Therapeutic Exercise,Neuromuscular Re- Education,Visual/Perceptual Training,Activity Tolerance Work,Use of Assistive Devices, Patient/Caregiver Education Problem Area: Bowel/Bladder Managment Bowel/Bladder Outcomes Bowel/Bladder Interventions Problem Area: Toileting Toileting Outcomes Improve [place] w/ Toileting Toileting Interventions ADL Training,Balance Work,Use of Assistive Devices,Patient/ Caregiver Education Problem Area: Nutrition Nutrition Outcomes Nutrition Interventions Problem Area: Comprehension Comprehension Outcomes Comprehension Interventions Problem Area: Expression Expression Outcomes Expression Interventions Problem Area: Problem Solving Problem Solving Outcomes Problem Solving Interventions Problem Area: Memory Memory Outcomes Memory Interventions Problem Area: Pain Management Pain Management Outcomes Pain Management Interventions Problem Area: Knowledge Deficits Knowledge Deficits Outcomes Demonstrate Ability to Manage Blood Glucose,Demonstrate Understanding of Anticoagulation,Verbalize Precautions,Verbalize Understanding of S/S of Stroke Knowledge Deficits Interventions Disease/Injury/Sx. Intervention Education, Medication Use Education, Safety Education Problem Area: Skin/Tissue Integrity Skin/Tissue Integrity Outcomes Skin/Tissue Integrity Interventions Problem Area: Social Interaction Social Interaction Outcomes Social Interaction Interventions Problem Area: Adjustment to Disability Adjustment to Disability Outcomes Adjustment to Disability Interventions Problem Area: Discharge Concerns Discharge Concerns Outcomes Discharge w/ Necessary Equipment,Have Home Health/ Outpatient Services Discharge Concerns Interventions Discharge Planning,Equipment Assessment, Acquisition and Placement,Family/Caregiver Training Problem Area: Community Reintegration Community Reintegration Outcomes Community Reintegration Interventions Problem Area: Home Management Home Management Outcomes Improve [place] w/ Home Management Home Management Interventions Meal Preparation,Clothing Care ,Activity Tolerance Work, Patient/Caregiver Education Problem Area: Safety Safety Outcomes Provide Safe Environment, Perform Selfcare Safely, Demonstrate Good Safety w/ Transfers/Mobility Safety Interventions Identify Fall Risk,Grady Pt. to Environment,Reduce Environmental Hazards,Neuro Check Assessment,Re-Educate Patient/Caregiver for Safety ( Post Fall Update) Problem Area: Medication Education Medication Education Outcomes Patient/Caregiver will Verbalize Understanding of Medications Medication Education Interventions Explain Administration/Side Effects/Interactions Problem Area: Diabetes Education Diabetes Education Outcomes Demonstrate Knowledge of Resources Availlable in Diabetic Ed. Folder Diabetes Education Interventions Give Pt. Diabetes Education Folder,Discuss Pathophysiology of Diabetes Problem Area: Oxygenation Oxygenation Outcomes Oxygenation Interventions Problem Area: Cardiovascular Cardiovascular Outcomes Maintain or Improve Cardiovascular Status Cardiovascular Interventions Assess Vital Signs at least Every 4 hours,Cardiac Monitoring, EKG and ABG as Ordered. Physician Only Medical Prognosis and Rehabilitation Potential (Completed by Physician) Good rehab potential, good medical prognosis Interdisciplinary Problem List Interdisciplinary Problem List Interdisciplinary Problem List Impaired Bathing/Grooming, Query Text:Answers will Trigger Problems Impaired Dressing,Impaired and Outcomes on Worklist. Mobility,Impaired Transfers, Impaired Toileting,Impaired Problem Solving,Impaired Memory,Knowledge Deficits, Discharge Concerns,Impaired Safety,Diabetes Education, Impaired Cardiovascular System This plan of care has been developed based on the findings from the pre- admission assessment, post admission physician evaluation, information gathered from the assessments from all therapy disciplines and other pertinent clinicians. The plan of care has been reviewed and discussed in collaboration with the interdisciplinary team. The plan of care will be reviewed and updated at least weekly.
[2021-10-05] MEDS: INSULIN LISPRO 100 UNIT/ML SUB-Q SCH ×4 (07:48→22:42)
[2021-10-05] MEDS: FAMOTIDINE 20 MG TAB PO SCH (09:36)
[2021-10-05] MEDS: GLIMEPIRIDE 2 MG TAB PO SCH (09:36)
[2021-10-05] MEDS: amLODIPine 5 MG TAB PO SCH (09:36)
[2021-10-05] MEDS: METOPROLOL TARTRATE 25 MG TAB PO SCH ×2 (09:36→22:26)
[2021-10-05] MEDS: APIXABAN 5 MG TAB PO SCH ×2 (09:37→22:26)
[2021-10-05] MEDS: CLOPIDOGREL 75 MG TAB PO SCH (09:37)
[2021-10-05] MEDS: metFORMIN 500 MG TAB PO SCH ×2 (09:37→18:00)
--- NOTE | 2021-10-05 12:16 | Progress Note ---
Subjective Date of service: 10/05/21 Principal diagnosis: CVA Interval history: 71-year-old male who had a abrupt onset of weakness on the left nondominant side starting in the leg. His friend was on her way to pick him up for a scheduled appointment and after not having a response at the door she called 911 and paramedics found the patient with left-sided weakness. He was brought to the ER where he quickly underwent administration of tPA with resolution of some symptoms. Head CT showed no acute intracranial abnormality, chronic focal infarcts in the right frontal and left occipital lobe with moderate volume loss and chronic white matter changes. Head and neck CTA showed no occlusions or significant stenosis. Carotid Doppler showed less than 50% stenosis bilaterally. Repeat head CT 24 hours after tPA administration showed no evidence of hemorrhage and similar picture as prior CT. Brain MRI on 09 30 showed acute to subacute ischemic infarct in the right ANNA distribution, chronic focal infarct in the right frontal lobe and left occipital lobe, mild diffuse volume loss, moderate chronic microangiopathy bilaterally. According to the patient reportedly from medical records the patient was noncompliant with medications for atrial fibrillation which had recently been diagnosed. He stopped taking aspirin and Coumadin and at one point was taking Coumadin and Eliquis at the [facility] time unbeknownst to his physician. His diabetes is somewhat controlled with an A1c of 7.5. Total cholesterol 164, LDL 96, HDL 52, triglycerides 136. He went into A. fib with RVR during his work-up, cardiology was consulted. Neurology was also consulted. Due to the patient's issues with prior medications, neurology recommend starting Plavix. Cardiology recommending using Eliquis which we will start on Monday. 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 Interval History: Patient is participating in therapy and making reasonable progress. Taking rest breaks as needed. +BM. Denies pain, palpitations, dyspnea, cough, N/V, weakness. Patient does state that he is having nocturia as well as increased urination, is open to starting Flomax CVA: No signs of worsening neurologic function, stroke recrudescence, shoulder- hand syndrome, bowel or bladder incontinence. Continue secondary stroke prevention. 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 Will continue to monitor. MANAGER BABY notes patient within normal limits from cognition standpoint. We will continue to monitor for any issues. Continue therapy. Atrial fibrillation: Continue rate control, continue Eliquis. Telemetry does not show any acute events, PT states that he is getting tachycardic when walking. There may be some issue with range on the telemetry, will have him walk near telemetry room tomorrow. Continue on telemetry. Diabetes: Glucose doing better since starting glimepiride. Continue diet and medications. Look to try to discharge on oral medications only Hypertension: Blood pressure improved with low-dose amlodipine. No signs of orthostatic hypotension. 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 Does have microvascular changes BPH: Start Flomax and monitor for improved ADL and mobility deficits: Patient ambulating with hemiwalker, improving with ADLs. Continue therapy interventions to improve patient's ability to ambulate and perform ADLs with the least amount of assistance as possible. All records, vitals, labs and medications were reviewed. No other issues per patient, nursing or therapy. Patient discussed during team conference today. Making fairly good progress especially with occupational therapy. Having some issues with balance and endurance. We will continue to work on that over the next several days. Vision loss, which is not new for the patient, is a little bit of a Darlin's. Cataract surgery will be delayed until the patient is outside the window for having any adverse events from the CVA. Patient will need supervision at home. Looking to discharge the patient next Monday with home health and family. Will look to have family come in for training as soon as they are able so that we can make sure they have plenty of time to adjust. Objective - Exam Narrative Exam: MUSCULOSKELETAL SPECIALTY EXAM CONSTITUTIONAL: Well developed, well nourished, appropriately groomed. RIGHT hand dominant. RESPIRATORY: Clear to auscultation bilaterally, no increased work of breathing CARDIOVASCULAR: Regular Rate/ Rhythm currently, no swelling, edema or tenderness in BUE or BLE. All extremities warm. GI: + bowel sounds, soft, NTTP, nondistended. INTEGUMENTARY: Normal, no lesion, rash, masses or bruising noted in extremities. MUSCULOSKELETAL: BUE and BLE normal without defect, crepitus, subluxation, effusion, arthritic changes or TTP. SA EF WE EE FF FA HF KE ADF EHL APF R 5/5 throughout L 4+/5 4/5 4/5 4/5 4+/5 4+/5 4/5 4-/5 4/5 4/5 4/5 ROM within normal limit Tone within normal limit NEURO: CN VII : Left facial droop CN XII : Tongue protrudes slightly left Sensation intact in all extremities without extinction. No tremor noted in 4 extremities. Naming and repetition intact. Follows 2 step commands. Aphasia not appreciated Dysarthria not appreciated Dysphagia not appreciated Neglect not appreciated POSTURE and GAIT: Sitting posture fair. PSYCH: Alert, oriented x3, affect appears euthymic with some emotional lability at times. Insight appears intact. - Constitutional Vitals: Vital Signs - 12hr 10/05/21 10/05/21 10/05/21 03:24 07:48 10:06 Temperature 97.9 F 97.9 F Pulse Rate 53 L 74 Pulse Rate [ 65 From Monitor] Respiratory 16 18 Rate Blood Pressure 123/70 124/75 O2 Sat by Pulse 100 98 97 Oximetry - Allied health notes Allied health notes reviewed: nursing, PT, ST, OT FIMS assessment as documented by PT/OT/ST: Locomotion- walk/wheelchair Ambulation Distance 100 - Labs CBC & Chem 7: 10/04/21 07:23 10/04/21 07:23 Labs: Laboratory Results - last 72 hr 10/02/21 10/02/21 10/03/21 16:15 20:05 09:10 WBC RBC Hgb Hct MCV MCH MCHC RDW Plt Count Sodium Potassium Chloride Carbon Dioxide Anion Gap BUN Creatinine Estimated GFR BUN/Creatinine Ratio Glucose POC Glucose 154 H 206 H 152 H Calcium 10/03/21 10/03/21 10/03/21 11:20 16:30 18:05 WBC RBC Hgb Hct MCV MCH MCHC RDW Plt Count Sodium Potassium Chloride Carbon Dioxide Anion Gap BUN Creatinine Estimated GFR BUN/Creatinine Ratio Glucose POC Glucose 162 H 69 L 112 H Calcium 10/03/21 10/04/21 10/04/21 20:13 07:09 07:23 WBC 6.0 RBC 4.21 Hgb 13.8 Hct 40.1 MCV 95 H MCH 33 H MCHC 35 H RDW 14.0 Plt Count 217 Sodium Potassium Chloride Carbon Dioxide Anion Gap BUN Creatinine Estimated GFR BUN/Creatinine Ratio Glucose POC Glucose 117 H 127 H Calcium 10/04/21 10/04/21 10/04/21 07:23 12:36 15:25 WBC RBC Hgb Hct MCV MCH MCHC RDW Plt Count Sodium 138 Potassium 3.6 Chloride 100.4 Carbon Dioxide 25 Anion Gap 16 BUN 18 Creatinine 0.9 Estimated GFR > 60 BUN/Creatinine Ratio 20 Glucose 133 H POC Glucose 145 H 146 H Calcium 9.0 10/04/21 10/05/21 20:15 07:13 WBC RBC Hgb Hct MCV MCH MCHC RDW Plt Count Sodium Potassium Chloride Carbon Dioxide Anion Gap BUN Creatinine Estimated GFR BUN/Creatinine Ratio Glucose POC Glucose 131 H 104 Calcium Assessment and Plan CVA: Continue Secondary Stroke Prevention (Antithrombotic, Statin (Goal LDL-C <70), BP control (Goal <140/90), GLU control (Goal A1c <7), and lifestyle modification). Monitor for recurrent stroke or post-stroke recrudescence. Continue neuromotor therapy as above. Family training when available. Monitor for post stroke depression, cognitive deficits, seizure, dysphagia, aphasia, shoulder hand syndrome, sensory deficits, spasticity, bowel/bladder deficits, sleep disturbance, vision deficits and DVT. Prognosis for recovery and Secondary Stroke Prevention discussed at length along with necessity of maintaining compliance with medications. Follow up with Neurology. No driving until cleared by Neurologist. Paroxysmal atrial fibrillation: Appreciate cardiology input on the acute care side. We will maintain telemetry while patient is in-house. Start Eliquis on Monday. Patient will need to follow-up with cardiology as an outpatient. Continue rate control with metoprolol. Monitor for any signs of worsening cardiac distress, chest pain, palpitations. Diabetes: Continue home metformin. Patient does state that he has been compliant with metformin dosing at home and yet his A1c is still elevated at 7.5%. Discussed with the patient that we will need to start another medication, will look to start glimepiride and monitor. Continue carb controlled diet, adjust medications as needed. Sliding scale insulin coverage as needed. Did have a single episode of mild hypoglycemia over the weekend at 69, otherwise glucose seems better controlled on glimepiride and metformin combination Hypertension: Continue metoprolol, blood pressure has been elevated and heart rate will not tolerate increases in metoprolol currently. Start low-dose amlodipine and monitor blood pressure. Adjust medications as needed for normotension. Hold for hypotension. Goal SBP <140 BPH: Start Flomax and monitor Hypokalemia: Resolved Volume depletion: Encouraged oral intake. Resolved Questionable cognitive decline after CVA: MANAGER BABY states within normal limits. Patient does have microvascular changes. Continue to monitor ADL dysfunction: OT will work on improving ability to perform ADLs (including assistive devices) to increase independence and decrease caregiver burden and improve functional transfers and mobility training. Difficulty walking: PT will work on gait training and proper use of assistive devices and advance as appropriate to use of stairs and outside ambulation on uneven surfaces. Unsteadiness on feet: PT will work on improving static and dynamic sitting and standing balance as well as proper use of assistive devices to decrease risk of falls. Abnormality of gait: PT will work to improve safety and efficiency of gait through neuromotor training and gait training along with instruction on proper use of assistive devices. Muscle weakness: PT & OT will work on strengthening exercises to improve functional strength including mixture of closed and open kinetic chain exercises. Debility: PT & OT will work on improving overall functional status to improve participation with ADLs, mobility and social involvement. Fatigue: PT & OT will work on improving endurance through aerobic exercises and therapeutic activity while monitoring patients tolerance for activity and vital signs as needed. DVT ppx: Lovenox until Eliquis is started on Monday Pain: Continue physical modalities in therapy and pain medications as needed to achieve functional pain control. Sleep: Monitor and address as needed. Bowel: Monitor and address as needed. Appetite: Monitor and address as needed. Discharge planning: Pending therapy progress and care plan meeting. Will continue discussion with therapy team, SW, patient and family. Based on the patient's issues with cognition, we may need to recommend supervision at discharge. We will see how he does over the coming days and work to try to advance him to the point of being able to be independent. Look to discharge next Monday with home health and family. Will likely need walker possibly cane at time of discharge. Restrictions/ Precautions: Falls, A. fib WB status: FWB Functional Hx: ADLs: Independent Cognition: Independent Mobility: No AD Barriers to Discharge: Decreased mobility and ability to perform self care, balance deficits, weakness Estimated Length of Stay: 1418 days Discharge Destination: Home with family, [id number] will likely stay with the patient for up to a month according to the patient
[2021-10-05] MEDS: TAMSULOSIN 0.4 MG CAP PO SCH (22:27)
[2021-10-06] MEDS: INSULIN LISPRO 100 UNIT/ML SUB-Q SCH ×3 (08:00→16:56)
[2021-10-06] MEDS: amLODIPine 5 MG TAB PO SCH (10:43)
[2021-10-06] MEDS: METOPROLOL TARTRATE 25 MG TAB PO SCH ×2 (10:43→22:55)
[2021-10-06] MEDS: FAMOTIDINE 20 MG TAB PO SCH (10:43)
[2021-10-06] MEDS: APIXABAN 5 MG TAB PO SCH ×2 (10:44→22:55)
[2021-10-06] MEDS: CLOPIDOGREL 75 MG TAB PO SCH (10:46)
[2021-10-06] MEDS: metFORMIN 500 MG TAB PO SCH ×2 (10:46→16:56)
[2021-10-06] MEDS: GLIMEPIRIDE 2 MG TAB PO SCH (10:46)
--- NOTE | 2021-10-06 11:24 | Progress Note ---
Subjective Date of service: 10/06/21 Principal diagnosis: CVA Interval history: 71-year-old male who had a abrupt onset of weakness on the left nondominant side starting in the leg. His friend was on her way to pick him up for a scheduled appointment and after not having a response at the door she called 911 and paramedics found the patient with left-sided weakness. He was brought to the ER where he quickly underwent administration of tPA with resolution of some symptoms. Head CT showed no acute intracranial abnormality, chronic focal infarcts in the right frontal and left occipital lobe with moderate volume loss and chronic white matter changes. Head and neck CTA showed no occlusions or significant stenosis. Carotid Doppler showed less than 50% stenosis bilaterally. Repeat head CT 24 hours after tPA administration showed no evidence of hemorrhage and similar picture as prior CT. Brain MRI on 09 30 showed acute to subacute ischemic infarct in the right ANNA distribution, chronic focal infarct in the right frontal lobe and left occipital lobe, mild diffuse volume loss, moderate chronic microangiopathy bilaterally. According to the patient reportedly from medical records the patient was noncompliant with medications for atrial fibrillation which had recently been diagnosed. He stopped taking aspirin and Coumadin and at one point was taking Coumadin and Eliquis at the [facility] time unbeknownst to his physician. His diabetes is somewhat controlled with an A1c of 7.5. Total cholesterol 164, LDL 96, HDL 52, triglycerides 136. He went into A. fib with RVR during his work-up, cardiology was consulted. Neurology was also consulted. Due to the patient's issues with prior medications, neurology recommend starting Plavix. Cardiology recommending using Eliquis which we will start on Monday. 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 Interval History: Patient is participating in therapy and making reasonable progress. Taking rest breaks as needed. +BM. Denies pain, palpitations, dyspnea, cough, N/V, weakness. Slight back pain on the right flank today, paraspinal right greater than left. No trigger points noted, will trial short dose of Lidoderm patch. Patient requesting that I speak with his sister about timing for family training, attempted to call with no answer, will call back CVA: No signs of worsening neurologic function, stroke recrudescence, shoulder- hand syndrome, bowel or bladder incontinence. Continue secondary stroke preve ntion. 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 Will continue to monitor. INFORMATION TECHNOLOGY ACCOUNT MANAGER notes patient within normal limits from cognition standpoint. We will continue to monitor for any issues. Continue therapy. Atrial fibrillation: Continue rate control, continue Eliquis. Telemetry does not show any acute events. Continue on telemetry. And walking with telemetry in the hallway the monitor on the patient shows he is tachycardic in the 140s to 160s however in the monitor room he is showing between 70 and 90 and in normal sinus except for a lot of artifact with movement. Palpation, auscultation agree with 80s for heart rate with walking. Patient is in no distress we will continue working with him and see if we can adjust leads Diabetes: Glucose doing better since starting glimepiride. Continue diet and medications. Look to try to discharge on oral medications only Hypertension: Blood pressure improved with low-dose amlodipine. No signs of orthostatic hypotension. 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 Does have microvascular changes BPH: Start Flomax and monitor for improvement ADL and mobility deficits: Patient ambulating with hemiwalker, improving with ADLs. Continue therapy interventions to improve patient's ability to ambulate and perform ADLs with the least amount of assistance as possible. All records, vitals, labs and medications were reviewed. No other issues per patient, nursing or therapy. Objective - Exam Narrative Exam: MUSCULOSKELETAL SPECIALTY EXAM CONSTITUTIONAL: Well developed, well nourished, appropriately groomed. RIGHT hand dominant. RESPIRATORY: Clear to auscultation bilaterally, no increased work of breathing CARDIOVASCULAR: Regular Rate/ Rhythm currently, no swelling, edema or tenderness in BUE or BLE. All extremities warm. GI: + bowel sounds, soft, NTTP, nondistended. INTEGUMENTARY: Normal, no lesion, rash, masses or bruising noted in extremities. MUSCULOSKELETAL: Mild tenderness at low back paraspinal, right greater than left. Otherwise BUE and BLE normal without defect, crepitus, subluxation, effusion, arthritic changes or TTP. SA EF WE EE FF FA HF KE ADF EHL APF R 5/5 throughout L 4+/5 4/5 4/5 4/5 4+/5 4+/5 4/5 4-/5 4/5 4/5 4/5 ROM within normal limit Tone within normal limit NEURO: CN VII : Left facial droop CN XII : Tongue protrudes slightly left Sensation intact in all extremities without extinction. No tremor noted in 4 extremities. Naming and repetition intact. Follows 2 step commands. Aphasia not appreciated Dysarthria not appreciated Dysphagia not appreciated Neglect not appreciated POSTURE and GAIT: Sitting posture fair. Gait with rolling walker fairly reasonable without loss of balance while observed PSYCH: Alert, oriented x3, affect appears euthymic with some emotional lability at times. Insight appears intact. - Constitutional Vitals: Vital Signs - 12hr 10/06/21 04:22 Temperature 97.6 F Pulse Rate 62 Respiratory 17 Rate Blood Pressure 120/69 O2 Sat by Pulse 93 Oximetry - Allied health notes Allied health notes reviewed: nursing, PT, OT FIMS assessment as documented by PT/OT/ST: Locomotion- walk/wheelchair Ambulation Distance 100 - Labs CBC & Chem 7: 10/04/21 07:23 10/04/21 07:23 Labs: Laboratory Results - last 72 hr 10/03/21 10/03/21 10/03/21 11:20 16:30 18:05 WBC RBC Hgb Hct MCV MCH MCHC RDW Plt Count Sodium Potassium Chloride Carbon Dioxide Anion Gap BUN Creatinine Estimated GFR BUN/Creatinine Ratio Glucose POC Glucose 162 H 69 L 112 H Calcium 10/03/21 10/04/21 10/04/21 20:13 07:09 07:23 WBC 6.0 RBC 4.21 Hgb 13.8 Hct 40.1 MCV 95 H MCH 33 H MCHC 35 H RDW 14.0 Plt Count 217 Sodium Potassium Chloride Carbon Dioxide Anion Gap BUN Creatinine Estimated GFR BUN/Creatinine Ratio Glucose POC Glucose 117 H 127 H Calcium 10/04/21 10/04/21 10/04/21 07:23 12:36 15:25 WBC RBC Hgb Hct MCV MCH MCHC RDW Plt Count Sodium 138 Potassium 3.6 Chloride 100.4 Carbon Dioxide 25 Anion Gap 16 BUN 18 Creatinine 0.9 Estimated GFR > 60 BUN/Creatinine Ratio 20 Glucose 133 H POC Glucose 145 H 146 H Calcium 9.0 10/04/21 10/05/21 10/05/21 20:15 07:13 12:45 WBC RBC Hgb Hct MCV MCH MCHC RDW Plt Count Sodium Potassium Chloride Carbon Dioxide Anion Gap BUN Creatinine Estimated GFR BUN/Creatinine Ratio Glucose POC Glucose 131 H 104 135 H Calcium 10/05/21 10/05/21 10/05/21 15:42 18:26 20:30 WBC RBC Hgb Hct MCV MCH MCHC RDW Plt Count Sodium Potassium Chloride Carbon Dioxide Anion Gap BUN Creatinine Estimated GFR BUN/Creatinine Ratio Glucose POC Glucose 76 105 124 H Calcium Assessment and Plan CVA: Continue Secondary Stroke Prevention (Antithrombotic, Statin (Goal LDL-C <70), BP control (Goal <140/90), GLU control (Goal A1c <7), and lifestyle modification). Monitor for recurrent stroke or post-stroke recrudescence. Continue neuromotor therapy as above. Family training when available. Monitor for post stroke depression, cognitive deficits, seizure, dysphagia, aphasia, shoulder hand syndrome, sensory deficits, spasticity, bowel/bladder d eficits, sleep disturbance, vision deficits and DVT. Prognosis for recovery and Secondary Stroke Prevention discussed at length along with necessity of maintaining compliance with medications. Follow up with Neurology. No driving until cleared by Neurologist. Paroxysmal atrial fibrillation: Appreciate cardiology input on the acute care side. We will maintain telemetry while patient is in-house. Start Eliquis on Monday. Patient will need to follow-up with cardiology as an outpatient. Cont inue rate control with metoprolol. Monitor for any signs of worsening cardiac distress, chest pain, palpitations. Diabetes: Continue home metformin. Patient does state that he has been compliant with metformin dosing at home and yet his A1c is still elevated at 7.5%. Discussed with the patient that we will need to start another medication, will look to start glimepiride and monitor. Continue carb controlled diet, adjust medications as needed. Sliding scale insulin coverage as needed. Did have a single episode of mild hypoglycemia over the weekend at 71, otherwise glucose seems better controlled on glimepiride and metformin combination Hypertension: Continue metoprolol, blood pressure has been elevated and heart rate will not tolerate increases in metoprolol currently. Start low-dose amlodipine and monitor blood pressure. Adjust medications as needed for normotension. Hold for hypotension. Goal SBP <140 BPH: Start Flomax and monitor Low back pain: Mild, Lidoderm for a few days , modalities, monitor for improvement Hypokalemia: Resolved Volume depletion: Encouraged oral intake. Resolved Questionable cognitive decline after CVA: INFORMATION TECHNOLOGY ACCOUNT MANAGER states within normal limits. Patient does have microvascular changes. Continue to monitor ADL dysfunction: OT will work on improving ability to perform ADLs (including assistive devices) to increase independence and decrease caregiver burden and improve functional transfers and mobility training. Difficulty walking: PT will work on gait training and proper use of assistive devices and advance as appropriate to use of stairs and outside ambulation on uneven surfaces. Unsteadiness on feet: PT will work on improving static and dynamic sitting and standing balance as well as proper use of assistive devices to decrease risk of falls. Abnormality of gait: PT will work to improve safety and efficiency of gait through neuromotor training and gait training along with instruction on proper use of assistive devices. Muscle weakness: PT & OT will work on strengthening exercises to improve functional strength including mixture of closed and open kinetic chain exercises. Debility: PT & OT will work on improving overall functional status to improve participation with ADLs, mobility and social involvement. Fatigue: PT & OT will work on improving endurance through aerobic exercises and therapeutic activity while monitoring patients tolerance for activity and vital signs as needed. DVT ppx: Eliquis Pain: Continue physical modalities in therapy and pain medications as needed to achieve functional pain control. Sleep: Monitor and address as needed. Bowel: Monitor and address as needed. Appetite: Monitor and address as needed. Discharge planning: Pending therapy progress and care plan meeting. Will continue discussion with therapy team, SW, patient and family. Based on the patient's issues with cognition, we may need to recommend supervision at discharge. We will see how he does over the coming days and work to try to advance him to the point of being able to be independent. Look to discharge next Monday with home health and family. Will likely need walker possibly cane at time of discharge. Restrictions/ Precautions: Falls, A. fib WB status: FWB Functional Hx: ADLs: Independent Cognition: Independent Mobility: No AD Barriers to Discharge: Decreased mobility and ability to perform self care, balance deficits, weakness Estimated Length of Stay: 1418 days Discharge Destination: Home with family, [id number] will likely stay with the patient for up to a month according to the patient
[2021-10-06] MEDS: TAMSULOSIN 0.4 MG CAP PO SCH (22:55)
[2021-10-07] MEDS: INSULIN LISPRO 100 UNIT/ML SUB-Q SCH ×5 (00:24→21:41)
--- NOTE | 2021-10-07 07:03 | Progress Note ---
Subjective Date of service: 10/07/21 Principal diagnosis: CVA Interval history: 71-year-old male who had a abrupt onset of weakness on the left nondominant side starting in the leg. His friend was on her way to pick him up for a scheduled appointment and after not having a response at the door she called 911 and paramedics found the patient with left-sided weakness. He was brought to the ER where he quickly underwent administration of tPA with resolution of some symptoms. Head CT showed no acute intracranial abnormality, chronic focal infarcts in the right frontal and left occipital lobe with moderate volume loss and chronic white matter changes. Head and neck CTA showed no occlusions or significant stenosis. Carotid Doppler showed less than 50% stenosis bilaterally. Repeat head CT 24 hours after tPA administration showed no evidence of hemorrhage and similar picture as prior CT. Brain MRI on 09 30 showed acute to subacute ischemic infarct in the right ANNA distribution, chronic focal infarct in the right frontal lobe and left occipital lobe, mild diffuse volume loss, moderate chronic microangiopathy bilaterally. According to the patient reportedly from medical records the patient was noncompliant with medications for atrial fibrillation which had recently been diagnosed. He stopped taking aspirin and Coumadin and at one point was taking Coumadin and Eliquis at the [facility] time unbeknownst to his physician. His diabetes is somewhat controlled with an A1c of 7.5. Total cholesterol 164, LDL 96, HDL 52, triglycerides 136. He went into A. fib with RVR during his work-up, cardiology was consulted. Neurology was also consulted. Due to the patient's issues with prior medications, neurology recommend starting Plavix. Cardiology recommending using Eliquis which we will start on Monday. 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 Interval History: Patient is participating in therapy and making reasonable progress. Taking rest breaks as needed. +BM. Denies pain, palpitations, dyspnea, cough, N/V, weakness. Patient states today that he did not sleep well prior to being awakened for therapy yesterday which he thinks is why he performs poorly in the morning. States that he was feeling much better by the afternoon after a nap. Seems to be doing fairly well overall. He is in A. fib this morning but is still rate controlled, denies any chest pain or palpitations. Was able to speak with his sister who states that they will take him up to [facility] for a period of time until he is able to transition home. She is requesting a discha rge on versus Monday in order to accommodate their schedule and we are happy to do that. Did also want to obtain a hospital bed but I explained to her that he does not qualify for that. We will make use of training the patient for utilizing stairs over the next several days to ensure that he is safe to get around the house at his sisters residence. CVA: No signs of worsening neurologic function, stroke recrudescence, shoulder- hand syndrome, bowel or bladder incontinence. Continue secondary stroke prevention. 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 Will continue to monitor. We will continue to monitor for any issues. Continue therapy. Atrial fibrillation: Continue rate control, continue Eliquis. Telemetry does not show any acute events, is in A. fib this morning but it remains rate controlled. Continue on telemetry. Diabetes: Glucose doing better since starting glimepiride. Continue diet and medications. Look to try to discharge on oral medications only Hypertension: Blood pressure improved with low-dose amlodipine. No signs of orthostatic hypotension. 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 Does have microvascular changes BPH: Start Flomax and monitor for improvement ADL and mobility deficits: Patient ambulating with hemiwalker, improving with ADLs. Continue therapy interventions to improve patient's ability to ambulate and perform ADLs with the least amount of assistance as possible. All records, vitals, labs and medications were reviewed. No other issues per patient, nursing or therapy. Objective - Exam Narrative Exam: MUSCULOSKELETAL SPECIALTY EXAM CONSTITUTIONAL: Well developed, well nourished, appropriately groomed. RIGHT hand dominant. RESPIRATORY: Clear to auscultation bilaterally, no increased work of breathing CARDIOVASCULAR: Regular Rate/A. fib currently, no swelling, edema or tenderness in BUE or BLE. All extremities warm. GI: + bowel sounds, soft, NTTP, nondistended. INTEGUMENTARY: Normal, no lesion, rash, masses or bruising noted in extremities. MUSCULOSKELETAL: Mild tenderness at low back paraspinal, right greater than left. Otherwise BUE and BLE normal without defect, crepitus, subluxation, effusion, arthritic changes or TTP. SA EF WE EE FF FA HF KE ADF EHL APF R 5/5 throughout L 4+/5 4/5 4/5 4/5 4+/5 4+/5 4/5 4-/5 4/5 4/5 4/5 ROM within normal limit Tone within normal limit NEURO: CN VII : Left facial droop CN XII : Tongue protrudes slightly left Sensation intact in all extremities without extinction. No tremor noted in 4 extremities. Naming and repetition intact. Follows 2 step commands. Aphasia not appreciated Dysarthria not appreciated Dysphagia not appreciated Neglect not appreciated POSTURE and GAIT: Sitting posture fair. Gait with rolling walker fairly reasonable without loss of balance while observed PSYCH: Alert, oriented x3, affect appears euthymic with some emotional lability at times. Insight appears intact. - Constitutional Vitals: Vital Signs - 12hr 10/06/21 10/06/21 19:51 22:00 Temperature 97.4 F L Pulse Rate 64 73 Pulse Rate [ 63 From Monitor] Respiratory 16 16 Rate Blood Pressure 111/68 O2 Sat by Pulse 96 98 Oximetry - Allied health notes Allied health notes reviewed: nursing, PT, OT FIMS assessment as documented by PT/OT/ST: Locomotion- walk/wheelchair Ambulation Distance 100 - Labs CBC & Chem 7: 10/04/21 07:23 10/04/21 07:23 Labs: Laboratory Results - last 72 hr 10/04/21 10/04/21 10/04/21 07:09 07:23 07:23 WBC 6.0 RBC 4.21 Hgb 13.8 Hct 40.1 MCV 95 H MCH 33 H MCHC 35 H RDW 14.0 Plt Count 217 Sodium 138 Potassium 3.6 Chloride 100.4 Carbon Dioxide 25 Anion Gap 16 BUN 18 Creatinine 0.9 Estimated GFR > 60 BUN/Creatinine Ratio 20 Glucose 133 H POC Glucose 127 H Calcium 9.0 10/04/21 10/04/21 10/04/21 12:36 15:25 20:15 WBC RBC Hgb Hct MCV MCH MCHC RDW Plt Count Sodium Potassium Chloride Carbon Dioxide Anion Gap BUN Creatinine Estimated GFR BUN/Creatinine Ratio Glucose POC Glucose 145 H 146 H 131 H Calcium 10/05/21 10/05/21 10/05/21 07:13 12:45 15:42 WBC RBC Hgb Hct MCV MCH MCHC RDW Plt Count Sodium Potassium Chloride Carbon Dioxide Anion Gap BUN Creatinine Estimated GFR BUN/Creatinine Ratio Glucose POC Glucose 104 135 H 76 Calcium 10/05/21 10/05/21 10/06/21 18:26 20:30 12:17 WBC RBC Hgb Hct MCV MCH MCHC RDW Plt Count Sodium Potassium Chloride Carbon Dioxide Anion Gap BUN Creatinine Estimated GFR BUN/Creatinine Ratio Glucose POC Glucose 105 124 H 227 H Calcium 10/06/21 10/06/21 15:47 20:15 WBC RBC Hgb Hct MCV MCH MCHC RDW Plt Count Sodium Potassium Chloride Carbon Dioxide Anion Gap BUN Creatinine Estimated GFR BUN/Creatinine Ratio Glucose POC Glucose 185 H 89 Calcium Assessment and Plan CVA: Continue Secondary Stroke Prevention (Antithrombotic, Statin (Goal LDL-C <70), BP control (Goal <140/90), GLU control (Goal A1c <7), and lifestyle modification). Monitor for recurrent stroke or post-stroke recrudescence. Continue neuromotor therapy as above. Family training when available. Monitor for post stroke depression, cognitive deficits, seizure, dysphagia, aphasia, shoulder hand syndrome, sensory deficits, spasticity, bowel/bladder deficits, sleep disturbance, vision deficits and DVT. Prognosis for recovery and Secondary Stroke Prevention discussed at length along with necessity of maintaining compliance with medications. Follow up with Neurology. No driving until cleared by Neurologist. Paroxysmal atrial fibrillation: Appreciate cardiology input on the acute care side. We will maintain telemetry while patient is in-house. Continue Eliquis. Patient will need to follow-up with cardiology as an outpatient. Continue rate control with metoprolol. Monitor for any signs of worsening cardiac distress, chest pain, palpitations. Diabetes: Continue home metformin. Patient does state that he has been compliant with metformin dosing at home and yet his A1c is still elevated at 7.5 %. Discussed with the patient that we will need to start another medication, will look to start glimepiride and monitor. Continue carb controlled diet, adjust medications as needed. Sliding scale insulin coverage as needed. Did have a single episode of mild hypoglycemia over the weekend at 71, otherwise glucose seems better controlled on glimepiride and metformin combination Hypertension: Continue metoprolol, blood pressure has been elevated and heart rate will not tolerate increases in metoprolol currently. Continue low-dose amlodipine and monitor blood pressure. Adjust medications as needed for normotension. Hold for hypotension. Goal SBP <140 BPH: Start Flomax and monitor Low back pain: Mild, Lidoderm for a few days , modalities, monitor for improvement Hypokalemia: Resolved Volume depletion: Encouraged oral intake. Resolved Questionable cognitive decline after CVA: CENTRALIZED TRAFFIC CONTROL OPERATOR states within normal limits. Patient does have microvascular changes. Continue to monitor ADL dysfunction: OT will work on improving ability to perform ADLs (including assistive devices) to increase independence and decrease caregiver burden and improve functional transfers and mobility training. Difficulty walking: PT will work on gait training and proper use of assistive devices and advance as appropriate to use of stairs and outside ambulation on uneven surfaces. Unsteadiness on feet: PT will work on improving static and dynamic sitting and standing balance as well as proper use of assistive devices to decrease risk of falls. Abnormality of gait: PT will work to improve safety and efficiency of gait through neuromotor training and gait training along with instruction on proper use of assistive devices. Muscle weakness: PT & OT will work on strengthening exercises to improve fu nctional strength including mixture of closed and open kinetic chain exercises. Debility: PT & OT will work on improving overall functional status to improve participation with ADLs, mobility and social involvement. Fatigue: PT & OT will work on improving endurance through aerobic exercises and therapeutic activity while monitoring patients tolerance for activity and vital signs as needed. DVT ppx: Eliquis Pain: Continue physical modalities in therapy and pain medications as needed to achieve functional pain control. Sleep: Monitor and address as needed. Bowel: Monitor and address as needed. Appetite: Monitor and address as needed. Discharge planning: Pending therapy progress and care plan meeting. Will continue discussion with therapy team, SW, patient and family. Based on the patient's issues with cognition, we may need to recommend supervision at discharge. We will see how he does over the coming days and work to try to advance him to the point of being able to be independent. Look to discharge next with home health and family in [facility]. Will likely need walker possibly cane at time of discharge. Restrictions/ Precautions: Falls, A. fib WB status: FWB Functional Hx: ADLs: Independent Cognition: Independent Mobility: No AD Barriers to Discharge: Decreased mobility and ability to perform self care, balance deficits, weakness Estimated Length of Stay: 1418 days Discharge Destination: Home with family, now stating he will go home with his sister in [facility]
[2021-10-07] MEDS: LIDOCAINE 5% 1 EACH PATCH TD SCH (09:53)
[2021-10-07] MEDS: oxyCODONE /ACETAMINOPHEN 5-325MG TAB PO PRN (09:54)
[2021-10-07] MEDS: metFORMIN 500 MG TAB PO SCH ×2 (09:54→17:00)
[2021-10-07] MEDS: GLIMEPIRIDE 2 MG TAB PO SCH (09:54)
[2021-10-07] MEDS: amLODIPine 5 MG TAB PO SCH (09:55)
[2021-10-07] MEDS: FAMOTIDINE 20 MG TAB PO SCH (09:55)
[2021-10-07] MEDS: APIXABAN 5 MG TAB PO SCH ×2 (09:55→21:40)
[2021-10-07] MEDS: METOPROLOL TARTRATE 25 MG TAB PO SCH ×2 (09:55→21:40)
[2021-10-07] MEDS: CLOPIDOGREL 75 MG TAB PO SCH (09:56)
[2021-10-07 13:24] LABS: Hematocrit 38.6 % (35.5-45.6); Hemoglobin 13.3 gm/dl (11.8-15.2); Mean Corpuscular HGB Conc 34 % (32-34); Mean Corpuscular Volume 96 fl (84-94); Platelet Count 232 K/mm3 (140-440); Red Blood Count 4.01 M/mm3 (3.65-5.03); Red Cell Distribution Width 13.5 % (13.2-15.2)
[2021-10-07 13:39] LABS: BUN/Creatinine Ratio 23; Blood Urea Nitrogen 27 mg/dL (9-20); Calcium 9.2 mg/dL (8.4-10.2); Hemolysis Index 3
[2021-10-07] MEDS: TAMSULOSIN 0.4 MG CAP PO SCH (21:41)
--- NOTE | 2021-10-08 08:02 | Progress Note ---
Subjective Date of service: 10/08/21 Principal diagnosis: CVA Interval history: 71-year-old male who had a abrupt onset of weakness on the left nondominant side starting in the leg. His friend was on her way to pick him up for a scheduled appointment and after not having a response at the door she called 911 and paramedics found the patient with left-sided weakness. He was brought to the ER where he quickly underwent administration of tPA with resolution of some symptoms. Head CT showed no acute intracranial abnormality, chronic focal infarcts in the right frontal and left occipital lobe with moderate volume loss and chronic white matter changes. Head and neck CTA showed no occlusions or significant stenosis. Carotid Doppler showed less than 50% stenosis bilaterally. Repeat head CT 24 hours after tPA administration showed no evidence of hemorrhage and similar picture as prior CT. Brain MRI on 09 30 showed acute to subacute ischemic infarct in the right ANNA distribution, chronic focal infarct in the right frontal lobe and left occipital lobe, mild diffuse volume loss, moderate chronic microangiopathy bilaterally. According to the patient reportedly from medical records the patient was noncompliant with medications for atrial fibrillation which had recently been diagnosed. He stopped taking aspirin and Coumadin and at one point was taking Coumadin and Eliquis at the [facility] time unbeknownst to his physician. His diabetes is somewhat controlled with an A1c of 7.5. Total cholesterol 164, LDL 96, HDL 52, triglycerides 136. He went into A. fib with RVR during his work-up, cardiology was consulted. Neurology was also consulted. Due to the patient's issues with prior medications, neurology recommend starting Plavix. Cardiology recommending using Eliquis which we will start on Monday. 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 Interval History: Patient is participating in therapy and making reasonable progress. Taking rest breaks as needed. +BM. Denies pain, palpitations, dyspnea, cough, N/V, weakness. Feeling much better this morning, requesting handicap parking decal and letter for 90-day excuse from court appearances. CVA: No signs of worsening neurologic function, stroke recrudescence, shoulder- hand syndrome, bowel or bladder incontinence. Continue secondary stroke prevention. 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 Will continue to monitor. Continue therapy. Atrial fibrillation: Continue rate control, continue Eliquis. Telemetry does not show any acute events, is in A. fib but remains rate controlled. Continue on telemetry. Diabetes: Glucose doing better since starting glimepiride. Continue diet and medications. Look to try to discharge on oral medications only Hypertension: Blood pressure improved with low-dose amlodipine. No signs of o rthostatic hypotension. 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 Does have microvascular changes BPH: Start Flomax and monitor for improvement ADL and mobility deficits: Patient ambulating with wide-based quad cane, improving with ADLs. Continue therapy interventions to improve patient's ability to ambulate and perform ADLs with the least amount of assistance as possible. We will make decision regarding DME on Monday prior to discharge. All records, vitals, labs and medications were reviewed. No other issues per patient, nursing or therapy. Objective - Exam Narrative Exam: MUSCULOSKELETAL SPECIALTY EXAM CONSTITUTIONAL: Well developed, well nourished, appropriately groomed. RIGHT hand dominant. RESPIRATORY: Clear to auscultation bilaterally, no increased work of breathing CARDIOVASCULAR: Regular Rate/A. fib currently, no swelling, edema or tenderness in BUE or BLE. All extremities warm. GI: + bowel sounds, soft, NTTP, nondistended. INTEGUMENTARY: Normal, no lesion, rash, masses or bruising noted in extremities. MUSCULOSKELETAL: Mild tenderness at low back paraspinal, right greater than left. Otherwise BUE and BLE normal without defect, crepitus, subluxation, effusion, arthritic changes or TTP. SA EF WE EE FF FA HF KE ADF EHL APF R 5/5 throughout L 4+/5 4/5 4/5 4/5 4+/5 4+/5 4/5 4-/5 4/5 4/5 4/5 ROM within normal limit Tone within normal limit NEURO: CN VII : Left facial droop, improved CN XII : Tongue protrudes slightly left Sensation intact in all extremities without extinction. No tremor noted in 4 extremities. Naming and repetition intact. Follows 2 step commands. Aphasia not appreciated Dysarthria not appreciated Dysphagia not appreciated Neglect not appreciated POSTURE and GAIT: Sitting posture fair. PSYCH: Alert, oriented x3, affect appears euthymic with some emotional lability at times. Insight appears intact. - Constitutional Vitals: Vital Signs - 12hr 10/07/21 10/07/21 20:25 21:00 Pulse Rate 78 O2 Sat by Pulse 96 Oximetry - Allied health notes Allied health notes reviewed: nursing, PT, OT FIMS assessment as documented by PT/OT/ST: Locomotion- walk/wheelchair Ambulation Distance 100 - Labs CBC & Chem 7: 10/07/21 13:09 10/07/21 13:09 Labs: Laboratory Results - last 72 hr 10/05/21 10/05/21 10/05/21 12:45 15:42 18:26 WBC RBC Hgb Hct MCV MCH MCHC RDW Plt Count Sodium Potassium Chloride Carbon Dioxide Anion Gap BUN Creatinine Estimated GFR BUN/Creatinine Ratio Glucose POC Glucose 135 H 76 105 Calcium 10/05/21 10/06/21 10/06/21 20:30 12:17 15:47 WBC RBC Hgb Hct MCV MCH MCHC RDW Plt Count Sodium Potassium Chloride Carbon Dioxide Anion Gap BUN Creatinine Estimated GFR BUN/Creatinine Ratio Glucose POC Glucose 124 H 227 H 185 H Calcium 10/06/21 10/07/21 10/07/21 20:15 09:50 11:37 WBC RBC Hgb Hct MCV MCH MCHC RDW Plt Count Sodium Potassium Chloride Carbon Dioxide Anion Gap BUN Creatinine Estimated GFR BUN/Creatinine Ratio Glucose POC Glucose 89 252 H 222 H Calcium 10/07/21 10/07/21 10/07/21 13:09 13:09 16:01 WBC 8.1 RBC 4.01 Hgb 13.3 Hct 38.6 MCV 96 H MCH 33 H MCHC 34 RDW 13.5 Plt Count 232 Sodium 140 Potassium 3.6 Chloride 102.6 Carbon Dioxide 22 Anion Gap 19 BUN 27 H Creatinine 1.2 Estimated GFR > 60 BUN/Creatinine Ratio 23 Glucose 137 H POC Glucose 79 Calcium 9.2 10/07/21 10/08/21 19:56 07:17 WBC RBC Hgb Hct MCV MCH MCHC RDW Plt Count Sodium Potassium Chloride Carbon Dioxide Anion Gap BUN Creatinine Estimated GFR BUN/Creatinine Ratio Glucose POC Glucose 132 H 117 H Calcium Assessment and Plan CVA: Continue Secondary Stroke Prevention (Antithrombotic, Statin (Goal LDL-C <70), BP control (Goal <140/90), GLU control (Goal A1c <7), and lifestyle modification). Monitor for recurrent stroke or post-stroke recrudescence. Continue neuromotor therapy as above. Family training when available. Monitor for post stroke depression, cognitive deficits, seizure, dysphagia, aphasia, shoulder hand syndrome, sensory deficits, spasticity, bowel/bladder deficits, sleep disturbance, vision deficits and DVT. Prognosis for recovery and Secondary Stroke Prevention discussed at length along with necessity of maintaining compliance with medications. Follow up with Neurology. No driving until cleared by Neurologist. Paroxysmal atrial fibrillation: Appreciate cardiology input on the acute care side. We will maintain telemetry while patient is in-house. Continue Eliquis. Patient will need to follow-up with cardiology as an outpatient. Continue rate control with metoprolol. Monitor for any signs of worsening cardiac distress, chest pain, palpitations. Diabetes: Continue home metformin. Patient does state that he has been compliant with metformin dosing at home and yet his A1c is still elevated at 7.5%. Doing well on glimepiride/metformin combo. Continue carb controlled diet, adjust medications as needed. Sliding scale insulin coverage as needed. Hypertension: Continue metoprolol, blood pressure has been elevated and heart rate will not tolerate increases in metoprolol currently. Continue low-dose amlodipine and monitor blood pressure. Adjust medications as needed for normotension. Hold for hypotension. Goal SBP <140 BPH: Start Flomax and monitor Low back pain: Mild, Lidoderm for a few days , modalities, monitor for improvement Hypokalemia: Resolved Volume depletion: Encouraged oral intake. Resolved Questionable cognitive decline after CVA: MECHANICAL DEVELOPMENT ENGINEER states within normal limits. Patient does have microvascular changes. Continue to monitor ADL dysfunction: OT will work on improving ability to perform ADLs (including assistive devices) to increase independence and decrease caregiver burden and improve functional transfers and mobility training. Difficulty walking: PT will work on gait training and proper use of assistive devices and advance as appropriate to use of stairs and outside ambulation on uneven surfaces. Unsteadiness on feet: PT will work on improving static and dynamic sitting and standing balance as well as proper use of assistive devices to decrease risk of falls. Abnormality of gait: PT will work to improve safety and efficiency of gait through neuromotor training and gait training along with instruction on proper use of assistive devices. Muscle weakness: PT & OT will work on strengthening exercises to improve functional strength including mixture of closed and open kinetic chain exercise s. Debility: PT & OT will work on improving overall functional status to improve participation with ADLs, mobility and social involvement. Fatigue: PT & OT will work on improving endurance through aerobic exercises and therapeutic activity while monitoring patients tolerance for activity and vital signs as needed. DVT ppx: Eliquis Pain: Continue physical modalities in therapy and pain medications as needed to achieve functional pain control. Sleep: Monitor and address as needed. Bowel: Monitor and address as needed. Appetite: Monitor and address as needed. Discharge planning: Pending therapy progress and care plan meeting. Will continue discussion with therapy team, SW, patient and family. Based on the patient's issues with cognition, we may need to recommend supervision at [facility]. We will see how he does over the coming days and work to try to advance him to the point of being able to be independent. Look to discharge next with home health and family in [facility]. Will likely need walker possibly cane at time of discharge. Restrictions/ Precautions: Falls, A. fib WB status: FWB Functional Hx: ADLs: Independent Cognition: Independent Mobility: No AD Barriers to Discharge: Decreased mobility and ability to perform self care, balance deficits, weakness Estimated Length of Stay: 1418 days Discharge Destination: Home with family, now stating he will go home with his sister in [facility]
[2021-10-08] MEDS: INSULIN LISPRO 100 UNIT/ML SUB-Q SCH ×4 (09:11→21:02)
[2021-10-08] MEDS: oxyCODONE /ACETAMINOPHEN 5-325MG TAB PO PRN (09:16)
[2021-10-08] MEDS: GLIMEPIRIDE 2 MG TAB PO SCH (09:16)
[2021-10-08] MEDS: metFORMIN 500 MG TAB PO SCH (09:16)
[2021-10-08] MEDS: FAMOTIDINE 20 MG TAB PO SCH (12:05)
[2021-10-08] MEDS: amLODIPine 5 MG TAB PO SCH (12:05)
[2021-10-08] MEDS: CLOPIDOGREL 75 MG TAB PO SCH (12:06)
[2021-10-08] MEDS: LIDOCAINE 5% 1 EACH PATCH TD SCH (12:06)
[2021-10-08] MEDS: APIXABAN 5 MG TAB PO SCH ×2 (12:06→21:01)
[2021-10-08] MEDS: METOPROLOL TARTRATE 25 MG TAB PO SCH ×2 (12:06→21:01)
[2021-10-08] MEDS: TAMSULOSIN 0.4 MG CAP PO SCH (21:01)
[2021-10-09] MEDS: metFORMIN 500 MG TAB PO SCH ×3 (06:50→18:05)
[2021-10-09] MEDS: INSULIN LISPRO 100 UNIT/ML SUB-Q SCH ×4 (07:46→22:08)
[2021-10-09] MEDS: GLIMEPIRIDE 2 MG TAB PO SCH (10:25)
[2021-10-09] MEDS: CLOPIDOGREL 75 MG TAB PO SCH (10:26)
[2021-10-09] MEDS: APIXABAN 5 MG TAB PO SCH ×2 (10:26→22:08)
[2021-10-09] MEDS: FAMOTIDINE 20 MG TAB PO SCH (10:26)
[2021-10-09] MEDS: METOPROLOL TARTRATE 25 MG TAB PO SCH ×2 (10:27→22:07)
[2021-10-09] MEDS: amLODIPine 5 MG TAB PO SCH (10:27)
[2021-10-09] MEDS: LIDOCAINE 5% 1 EACH PATCH TD SCH (10:36)
[2021-10-09] MEDS: TAMSULOSIN 0.4 MG CAP PO SCH (22:07)
[2021-10-09] MEDS: oxyCODONE /ACETAMINOPHEN 5-325MG TAB PO PRN (22:09)
[2021-10-10] MEDS: INSULIN LISPRO 100 UNIT/ML SUB-Q SCH ×4 (08:02→22:36)
[2021-10-10] MEDS: LIDOCAINE 5% 1 EACH PATCH TD SCH (09:08)
[2021-10-10] MEDS: APIXABAN 5 MG TAB PO SCH ×2 (09:08→22:35)
[2021-10-10] MEDS: oxyCODONE /ACETAMINOPHEN 5-325MG TAB PO PRN ×2 (09:08→22:36)
[2021-10-10] MEDS: GLIMEPIRIDE 2 MG TAB PO SCH (09:09)
[2021-10-10] MEDS: METOPROLOL TARTRATE 25 MG TAB PO SCH ×2 (09:09→22:35)
[2021-10-10] MEDS: amLODIPine 5 MG TAB PO SCH (09:09)
[2021-10-10] MEDS: metFORMIN 500 MG TAB PO SCH ×2 (09:09→18:14)
[2021-10-10] MEDS: CLOPIDOGREL 75 MG TAB PO SCH (09:09)
[2021-10-10] MEDS: FAMOTIDINE 20 MG TAB PO SCH (09:09)
[2021-10-10] MEDS: TAMSULOSIN 0.4 MG CAP PO SCH (22:35)
--- NOTE | 2021-10-11 08:42 | Progress Note ---
Subjective Date of service: 10/11/21 Principal diagnosis: CVA Interval history: 71-year-old male who had a abrupt onset of weakness on the left nondominant side starting in the leg. His friend was on her way to pick him up for a scheduled appointment and after not having a response at the door she called 911 and paramedics found the patient with left-sided weakness. He was brought to the ER where he quickly underwent administration of tPA with resolution of some symptoms. Head CT showed no acute intracranial abnormality, chronic focal infarcts in the right frontal and left occipital lobe with moderate volume loss and chronic white matter changes. Head and neck CTA showed no occlusions or significant stenosis. Carotid Doppler showed less than 50% stenosis bilaterally. Repeat head CT 24 hours after tPA administration showed no evidence of hemorrhage and similar picture as prior CT. Brain MRI on 09 30 showed acute to subacute ischemic infarct in the right ANNA distribution, chronic focal infarct in the right frontal lobe and left occipital lobe, mild diffuse volume loss, moderate chronic microangiopathy bilaterally. According to the patient reportedly from medical records the patient was noncompliant with medications for atrial fibrillation which had recently been diagnosed. He stopped taking aspirin and Coumadin and at one point was taking Coumadin and Eliquis at the [facility] time unbeknownst to his physician. His diabetes is somewhat controlled with an A1c of 7.5. Total cholesterol 164, LDL 96, HDL 52, triglycerides 136. He went into A. fib with RVR during his work-up, cardiology was consulted. Neurology was also consulted. Due to the patient's issues with prior medications, neurology recommend starting Plavix. Cardiology recommending using Eliquis which we will start on Monday. 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 Interval History: Patient is participating in therapy and making reasonable progress. Taking rest breaks as needed. +BM. Denies pain, palpitations, dyspnea, cough, N/V, weakness. Delivered letter to the patient excusing him from work for the next 90 days. Copy placed in chart. Discussed discharge with the patient, doing well with therapy. CVA: No signs of worsening neurologic function, stroke recrudescence, shoulder- hand syndrome, bowel or bladder incontinence. Continue secondary stroke prevention. Symptoms of depression seem to be improved and patient is showing signs of better adjustment to medical situation. Will continue to monitor. Continue therapy. Atrial fibrillation: Continue rate control, continue Eliquis. Telemetry does not show any acute events, is in A. fib but remains rate controlled. Continue on telemetry. Called over the weekend with report of relative bradycardia with heart rate around 55, gave verbal order to hold metoprolol. Diabetes: Glucose doing better since starting glimepiride. Continue diet and medications. Look to try to discharge on oral medications only Hypertension: Blood pressure improved with low-dose amlodipine. No signs of orthostatic hypotension. 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 Does have microvascular changes BPH: Start Flomax and monitor for improvement ADL and mobility deficits: Patient ambulating with wide-based quad cane, improving with ADLs. Continue therapy interventions to improve patient's ability to ambulate and perform ADLs with the least amount of assistance as possible. We will make decision regarding DME on Monday prior to discharge. All records, vitals, labs and medications were reviewed. No other issues per patient, nursing or therapy. Objective - Exam Narrative Exam: MUSCULOSKELETAL SPECIALTY EXAM CONSTITUTIONAL: Well developed, well nourished, appropriately groomed. RIGHT hand dominant. RESPIRATORY: Clear to auscultation bilaterally, no increased work of breathing CARDIOVASCULAR: Regular Rate/A. fib currently, no swelling, edema or tenderness in BUE or BLE. All extremities warm. GI: + bowel sounds, soft, NTTP, nondistended. INTEGUMENTARY: Normal, no lesion, rash, masses or bruising noted in extremities. MUSCULOSKELETAL: Mild tenderness at low back paraspinal, right greater than left. Otherwise BUE and BLE normal without defect, crepitus, subluxation, effusion, arthritic changes or TTP. SA EF WE EE FF FA HF KE ADF EHL APF R 5/5 throughout L 4+/5 4+/5 4+/5 4+/5 4+/5 4+/5 4/5 4-/5 4/5 4/5 4/5 ROM within normal limit Tone within normal limit NEURO: CN VII : Left facial droop, improved CN XII : Tongue protrudes slightly left Sensation intact in all extremities without extinction. No tremor noted in 4 extremities. Naming and repetition intact. Follows 2 step commands. Aphasia not appreciated Dysarthria not appreciated Dysphagia not appreciated Neglect not appreciated POSTURE and GAIT: Sitting posture fair. Walking still has a little bit of sway with an occasional loss of balance but patient is able to correct and compensate. PSYCH: Alert, oriented x3, affect appears euthymic, emotional lability seems to have cleared. Insight appears intact. - Constitutional Vitals: Vital Signs - 12hr 10/10/21 10/10/21 10/10/21 22:00 22:35 22:36 Pulse Rate 65 62 Respiratory 20 Rate Respiratory 20 Rate [Right Lower Back] Blood Pressure 136/80 O2 Sat by Pulse 98 Oximetry - Allied health notes Allied health notes reviewed: nursing, PT, OT FIMS assessment as documented by PT/OT/ST: Locomotion- walk/wheelchair Ambulation Distance 100 - Labs CBC & Chem 7: 10/07/21 13:09 10/07/21 13:09 Labs: Laboratory Results - last 72 hr 10/08/21 10/08/21 10/08/21 11:13 15:14 20:49 POC Glucose 205 H 107 H 143 H 10/09/21 10/09/21 10/09/21 07:19 12:04 16:50 POC Glucose 108 H 146 H 118 H 10/09/21 10/10/21 10/10/21 20:49 07:21 11:41 POC Glucose 102 123 H 161 H 10/10/21 10/10/21 15:50 20:31 POC Glucose 101 145 H Assessment and Plan CVA: Continue Secondary Stroke Prevention (Antithrombotic, Statin (Goal LDL-C <70), BP control (Goal <140/90), GLU control (Goal A1c <7), and lifestyle modification). Monitor for recurrent stroke or post-stroke recrudescence. Continue neuromotor therapy as above. Family training when available. Monitor for post stroke depression, cognitive deficits, seizure, dysphagia, aphasia, shoulder hand syndrome, sensory deficits, spasticity, bowel/bladder deficits, sleep disturbance, vision deficits and DVT. Prognosis for recovery and Secondary Stroke Prevention discussed at length along with necessity of maintaining compliance with medications. Follow up with Neurology. No driving until cleared by Neurologist. Paroxysmal atrial fibrillation: Appreciate cardiology input on the acute care side. We will maintain telemetry while patient is in-house. Continue Eliquis. Patient will need to follow-up with cardiology as an outpatient. Continue rate control with metoprolol. Monitor for any signs of worsening cardiac distress, chest pain, palpitations. Diabetes: Continue home metformin. Patient does state that he has been compliant with metformin dosing at home and yet his A1c is still elevated at 7.5%. Doing well on glimepiride/metformin combo. Continue carb controlled diet, adjust medications as needed. Sliding scale insulin coverage as needed, will not discharge home on insulin Hypertension: Continue metoprolol, blood pressure has been elevated and heart rate will not tolerate increases in metoprolol currently. Continue low-dose amlodipine and monitor blood pressure. Adjust medications as needed for normotension. Hold for hypotension. Goal SBP <140 BPH: Start Flomax and monitor Low back pain: Mild, Lidoderm for a few days , modalities, monitor for improvement Hypokalemia: Resolved Volume depletion: Encouraged oral intake. Resolved Questionable cognitive decline after CVA: FURNITURE AND BEDDING INSPECTOR states within normal limits. Patient does have microvascular changes. Continue to monitor ADL dysfunction: OT will work on improving ability to perform ADLs (including assistive devices) to increase independence and decrease caregiver burden and improve functional transfers and mobility training. Difficulty walking: PT will work on gait training and proper use of assistive devices and advance as appropriate to use of stairs and outside ambulation on uneven surfaces. Unsteadiness on feet: PT will work on improving static and dynamic sitting and standing balance as well as proper use of assistive devices to decrease risk of falls. Abnormality of gait: PT will work to improve safety and efficiency of gait through neuromotor training and gait training along with instruction on proper use of assistive devices. Muscle weakness: PT & OT will work on strengthening exercises to improve functional strength including mixture of closed and open kinetic chain exercises. Debility: PT & OT will work on improving overall functional status to improve participation with ADLs, mobility and social involvement. Fatigue: PT & OT will work on improving endurance through aerobic exercises and therapeutic activity while monitoring patients tolerance for activity and vital signs as needed. DVT ppx: Eliquis Pain: Continue physical modalities in therapy and pain medications as needed to achieve functional pain control. Sleep: Monitor and address as needed. Bowel: Monitor and address as needed. Appetite: Monitor and address as needed. Discharge planning: Pending therapy progress and care plan meeting. Will continue discussion with therapy team, SW, patient and family. Based on the patient's issues with cognition, we may need to recommend supervision at discharge. We will see how he does over the coming days and work to try to ad faith him to the point of being able to be independent. Look to discharge next with home health and family in [facility]. Will likely need walker possibly cane at time of discharge. Restrictions/ Precautions: Falls, A. fib WB status: FWB Functional Hx: ADLs: Independent Cognition: Independent Mobility: No AD Barriers to Discharge: Decreased mobility and ability to perform self care, balance deficits, weakness Estimated Length of Stay: 1418 days Discharge Destination: Home with family, now stating he will go home with his sister in [facility]
[2021-10-11] MEDS: INSULIN LISPRO 100 UNIT/ML SUB-Q SCH ×4 (08:45→22:14)
[2021-10-11] MEDS: metFORMIN 500 MG TAB PO SCH ×2 (17:35→17:38)
[2021-10-11] MEDS: METOPROLOL TARTRATE 25 MG TAB PO SCH ×2 (17:36→22:13)
[2021-10-11] MEDS: APIXABAN 5 MG TAB PO SCH ×2 (17:36→22:13)
[2021-10-11] MEDS: GLIMEPIRIDE 2 MG TAB PO SCH (17:38)
[2021-10-11] MEDS: CLOPIDOGREL 75 MG TAB PO SCH (17:38)
[2021-10-11] MEDS: FAMOTIDINE 20 MG TAB PO SCH (17:38)
[2021-10-11] MEDS: amLODIPine 5 MG TAB PO SCH (17:38)
[2021-10-11] MEDS: LIDOCAINE 5% 1 EACH PATCH TD SCH (17:39)
[2021-10-11] MEDS: TAMSULOSIN 0.4 MG CAP PO SCH (22:13)
[2021-10-12] MEDS: amLODIPine 5 MG TAB PO SCH (11:12)
[2021-10-12] MEDS: CLOPIDOGREL 75 MG TAB PO SCH (11:12)
[2021-10-12] MEDS: APIXABAN 5 MG TAB PO SCH ×2 (11:12→21:27)
[2021-10-12] MEDS: METOPROLOL TARTRATE 25 MG TAB PO SCH ×2 (11:12→21:27)
[2021-10-12] MEDS: FAMOTIDINE 20 MG TAB PO SCH (11:12)
[2021-10-12] MEDS: metFORMIN 500 MG TAB PO SCH ×2 (11:13→16:34)
[2021-10-12] MEDS: GLIMEPIRIDE 2 MG TAB PO SCH (11:13)
[2021-10-12] MEDS: INSULIN LISPRO 100 UNIT/ML SUB-Q SCH ×4 (11:16→21:27)
--- NOTE | 2021-10-12 11:52 | Progress Note ---
Subjective Date of service: 10/12/21 Principal diagnosis: CVA Interval history: 71-year-old male who had a abrupt onset of weakness on the left nondominant side starting in the leg. His friend was on her way to pick him up for a scheduled appointment and after not having a response at the door she called 911 and paramedics found the patient with left-sided weakness. He was brought to the ER where he quickly underwent administration of tPA with resolution of some symptoms. Head CT showed no acute intracranial abnormality, chronic focal infarcts in the right frontal and left occipital lobe with moderate volume loss and chronic white matter changes. Head and neck CTA showed no occlusions or significant stenosis. Carotid Doppler showed less than 50% stenosis bilaterally. Repeat head CT 24 hours after tPA administration showed no evidence of hemorrhage and similar picture as prior CT. Brain MRI on 09 30 showed acute to subacute ischemic infarct in the right ANNA distribution, chronic focal infarct in the right frontal lobe and left occipital lobe, mild diffuse volume loss, moderate chronic microangiopathy bilaterally. According to the patient reportedly from medical records the patient was noncompliant with medications for atrial fibrillation which had recently been diagnosed. He stopped taking aspirin and Coumadin and at one point was taking Coumadin and Eliquis at the [facility] time unbeknownst to his physician. His diabetes is somewhat controlled with an A1c of 7.5. Total cholesterol 164, LDL 96, HDL 52, triglycerides 136. He went into A. fib with RVR during his work-up, cardiology was consulted. Neurology was also consulted. Due to the patient's issues with prior medications, neurology recommend starting Plavix. Cardiology recommending using Eliquis which we will start on Monday. 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 Interval History: Patient is participating in therapy and making reasonable progress. Taking rest breaks as needed. +BM. Denies pain, palpitations, dyspnea, cough, N/V, weakness. Discussed discharge with the patient, doing well with therapy. Some medications missed yesterday and he had late administration of several around 5:30 in the afternoon versus 10:00 in the morning. Back pain seems better, will discontinue Lidoderm patch. CVA: No signs of worsening neurologic function, stroke recrudescence, shoulder- hand syndrome, bowel or bladder incontinence. Continue secondary stroke prevention. Symptoms of depression seem to be improved and patient is showing signs of better adjustment to medical situation. Will continue to monitor. Continue therapy. Atrial fibrillation: Continue rate control, continue Eliquis. Telemetry does not show any acute events, is in A. fib tachycardic at times in the low 100s. Continue on telemetry. Diabetes: Glucose doing better since starting glimepiride. Continue diet and medications. Look to try to discharge on oral medications only Hypertension: Blood pressure improved with low-dose amlodipine. No signs of orthostatic hypotension. 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 Does have microvascular changes BPH: Start Flomax and monitor for improvement, patient refused Flomax, states that it makes him urinate too much. Discussed symptoms we are trying to treat and he agreed to start it again during the day. We will restart tomorrow ADL and mobility deficits: Patient ambulating with wide-based quad cane, improving with ADLs. Continue therapy interventions to improve patient's ability to ambulate and perform ADLs with the least amount of assistance as possible. We will make decision regarding DME on Monday prior to discharge. All records, vitals, labs and medications were reviewed. No other issues per patient, nursing or therapy. Patient discussed during team conference. Making good progress with PT and OT. Still needs some assistance with set up primarily due to vision, but is mostly modified independent with ADLs. With PT he is increasing his distance and improving his balance but still does have some unsteady gait at times. Gait is not controllable with a cane and he typically sways and meanders. With a rolling walker his gait is more steady and he is able to control his path better. Will be safe for to discharge with a rolling walker at this point to reduce his risk of falling and improve his stability with gait. Doing fairly well with stairs. We will also look to discharge with a tub transfer bench and a 3 in 1. Plan to discharge home with family after family training on , originally planned for Monday however family members are not able to come in from out of town until . In total, greater than 38 minutes was invested in patient care today including greater than 50% of that time spent counseling and coordinating care with the patient, therapy and nursing. Objective - Exam Narrative Exam: MUSCULOSKELETAL SPECIALTY EXAM CONSTITUTIONAL: Well developed, well nourished, appropriately groomed. RIGHT hand dominant. RESPIRATORY: Clear to auscultation bilaterally, no increased work of breathing CARDIOVASCULAR: Slightly tachycardic 90s - 110/A. fib currently, no swelling, edema or tendernes s in BUE or BLE. All extremities warm. GI: + bowel sounds, soft, NTTP, nondistended. INTEGUMENTARY: Normal, no lesion, rash, masses or bruising noted in extremities. MUSCULOSKELETAL: BUE and BLE normal without defect, crepitus, subluxation, effusion, arthritic changes or TTP. SA EF WE EE FF FA HF KE ADF EHL APF R 5/5 throughout L 4+/5 4+/5 4+/5 4+/5 4+/5 4+/5 4/5 4-/5 4/5 4/5 4/5 ROM within normal limit Tone within normal limit NEURO: CN VII : Left facial droop, improved CN XII : Tongue protrudes slightly left Sensation intact in all extremities without extinction. No tremor noted in 4 extremities. Naming and repetition intact. Follows 2 step commands. Aphasia not appreciated Dysarthria not appreciated Dysphagia not appreciated Neglect not appreciated POSTURE and GAIT: Sitting posture fair. Walking still has a little bit of sway with an occasional loss of balance but patient is able to correct and compensate. PSYCH: Alert, oriented x3, affect appears euthymic, emotional lability seems to have cleared. Insight appears intact. - Constitutional Vitals: Vital Signs - 12hr 10/12/21 10/12/21 10/12/21 07:30 10:00 11:17 Temperature 98.8 F Pulse Rate 75 Respiratory 17 Rate Respiratory 20 Rate [Right Lower Back] Blood Pressure 110/72 [Right] O2 Sat by Pulse 98 98 Oximetry - Allied health notes Allied health notes reviewed: nursing, PT, OT FIMS assessment as documented by PT/OT/ST: Locomotion- walk/wheelchair Ambulation Distance 100 - Labs CBC & Chem 7: 10/07/21 13:09 10/07/21 13:09 Labs: Laboratory Results - last 72 hr 10/09/21 10/09/21 10/09/21 12:04 16:50 20:49 POC Glucose 146 H 118 H 102 10/10/21 10/10/21 10/10/21 07:21 11:41 15:50 POC Glucose 123 H 161 H 101 10/10/21 10/11/21 10/11/21 20:31 11:53 16:26 POC Glucose 145 H 144 H 189 H 10/11/21 10/12/21 20:47 07:26 POC Glucose 178 H 141 H Assessment and Plan CVA: Continue Secondary Stroke Prevention (Antithrombotic, Statin (Goal LDL-C <70), BP control (Goal <140/90), GLU control (Goal A1c <7), and lifestyle modification). Monitor for recurrent stroke or post-stroke recrudescence. Continue neuromotor therapy as above. Family training when available. Monitor for post stroke depression, cognitive deficits, seizure, dysphagia, aphasia, shoulder hand syndrome, sensory deficits, spasticity, bowel/bladder d eficits, sleep disturbance, vision deficits and DVT. Prognosis for recovery and Secondary Stroke Prevention discussed at length along with necessity of maintaining compliance with medications. Follow up with Neurology. No driving until cleared by Neurologist. Paroxysmal atrial fibrillation: Appreciate cardiology input on the acute care side. We will maintain telemetry while patient is in-house. Continue Eliquis. Patient will need to follow-up with cardiology as an outpatient. Continue rate control with metoprolol. Monitor for any signs of worsening cardiac distress, chest pain, palpitations. Diabetes: Continue home metformin. Patient does state that he has been compliant with metformin dosing at home and yet his A1c is still elevated at 7.5%. Doing well on glimepiride/metformin combo. Continue carb controlled diet, adjust medications as needed. Sliding scale insulin coverage as needed, will not discharge home on insulin Hypertension: Continue metoprolol, blood pressure has been elevated and heart rate will not tolerate increases in metoprolol currently. Continue low-dose amlodipine and monitor blood pressure. Adjust medications as needed for normotension. Hold for hypotension. Goal SBP <140 BPH: Start Flomax and monitor, patient states he is urinating too much but is agreeable to changing dosing to the morning Low back pain: Seems resolved, continue to monitor Hypokalemia: Resolved Volume depletion: Encouraged oral intake. Resolved Questionable cognitive decline after CVA: TICKET MACHINE OPERATOR states within normal limits. Patient does have microvascular changes. Continue to monitor ADL dysfunction: OT will work on improving ability to perform ADLs (including as sistive devices) to increase independence and decrease caregiver burden and improve functional transfers and mobility training. Difficulty walking: PT will work on gait training and proper use of assistive devices and advance as appropriate to use of stairs and outside ambulation on uneven surfaces. Unsteadiness on feet: PT will work on improving static and dynamic sitting and standing balance as well as proper use of assistive devices to decrease risk of falls. Abnormality of gait: PT will work to improve safety and efficiency of gait through neuromotor training and gait training along with instruction on proper use of assistive devices. Muscle weakness: PT & OT will work on strengthening exercises to improve functional strength including mixture of closed and open kinetic chain exerc ises. Debility: PT & OT will work on improving overall functional status to improve participation with ADLs, mobility and social involvement. Fatigue: PT & OT will work on improving endurance through aerobic exercises and therapeutic activity while monitoring patients tolerance for activity and vital signs as needed. DVT ppx: Eliquis Pain: Continue physical modalities in therapy and pain medications as needed to achieve functional pain control. Sleep: Monitor and address as needed. Bowel: Monitor and address as needed. Appetite: Monitor and address as needed. Discharge planning: Pending therapy progress and care plan meeting. Will continue discussion with therapy team, SW, patient and family. Look to discharge with home health and family in [facility]. Will discharge with a rolling walker, tub transfer bench, 3 in 1 Restrictions/ Precautions: Falls, A. fib WB status: FWB Functional Hx: ADLs: Independent Cognition: Independent Mobility: No AD Barriers to Discharge: Decreased mobility and ability to perform self care, balance deficits, weakness Estimated Length of Stay: 1418 days Discharge Destination: Home with family, now stating he will go home with his sister in [facility]
[2021-10-13] MEDS: INSULIN LISPRO 100 UNIT/ML SUB-Q SCH ×2 (09:42→12:34)
[2021-10-13] MEDS: GLIMEPIRIDE 2 MG TAB PO SCH (11:08)
[2021-10-13] MEDS: amLODIPine 5 MG TAB PO SCH (11:08)
[2021-10-13] MEDS: APIXABAN 5 MG TAB PO SCH ×2 (11:08→21:26)
[2021-10-13] MEDS: METOPROLOL TARTRATE 25 MG TAB PO SCH ×2 (11:08→21:26)
[2021-10-13] MEDS: metFORMIN 500 MG TAB PO SCH ×2 (11:08→17:30)
[2021-10-13] MEDS: TAMSULOSIN 0.4 MG CAP PO SCH (11:08)
[2021-10-13] MEDS: CLOPIDOGREL 75 MG TAB PO SCH (11:08)
[2021-10-13] MEDS: FAMOTIDINE 20 MG TAB PO SCH (11:09)
--- NOTE | 2021-10-13 16:47 | Progress Note ---
Subjective Date of service: 10/13/21 Principal diagnosis: CVA Interval history: 71-year-old male who had a abrupt onset of weakness on the left nondominant side starting in the leg. His friend was on her way to pick him up for a scheduled appointment and after not having a response at the door she called 911 and paramedics found the patient with left-sided weakness. He was brought to the ER where he quickly underwent administration of tPA with resolution of some symptoms. Head CT showed no acute intracranial abnormality, chronic focal infarcts in the right frontal and left occipital lobe with moderate volume loss and chronic white matter changes. Head and neck CTA showed no occlusions or significant stenosis. Carotid Doppler showed less than 50% stenosis bilaterally. Repeat head CT 24 hours after tPA administration showed no evidence of hemorrhage and similar picture as prior CT. Brain MRI on 09 30 showed acute to subacute ischemic infarct in the right ANNA distribution, chronic focal infarct in the right frontal lobe and left occipital lobe, mild diffuse volume loss, moderate chronic microangiopathy bilaterally. According to the patient reportedly from medical records the patient was noncompliant with medications for atrial fibrillation which had recently been diagnosed. He stopped taking aspirin and Coumadin and at one point was taking Coumadin and Eliquis at the [facility] time unbeknownst to his physician. His diabetes is somewhat controlled with an A1c of 7.5. Total cholesterol 164, LDL 96, HDL 52, triglycerides 136. He went into A. fib with RVR during his work-up, cardiology was consulted. Neurology was also consulted. Due to the patient's issues with prior medications, neurology recommend starting Plavix. Cardiology recommending using Eliquis which we will start on Monday. 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 Interval History: Patient is participating in therapy and making reasonable progress. Taking rest breaks as needed. +BM. Denies pain, palpitations, dyspnea, cough, N/V, weakness. Discussed discharge with the patient, doing well with therapy. Slightly low glucose today, did receive sliding scale earlier with lunch, have discontinued that now. Seems to do well on just glimepiride and metformin CVA: No signs of worsening neurologic function, stroke recrudescence, shoulder- hand syndrome, bowel or bladder incontinence. Continue secondary stroke prevention. Symptoms of depression seem to be improved and patient is showing signs of better adjustment to medical situation. Will continue to monitor. Continue therapy. Atrial fibrillation: Continue rate control, continue Eliquis. Continue on telemetry. 3-second pause noted overnight while in atrial fibrillation, no other issues. Currently in normal sinus rhythm Diabetes: Glucose doing better since starting glimepiride. Continue diet and medications. Discontinued sliding scale insulin Hypertension: Blood pressure improved with low-dose amlodipine. No signs of orthostatic hypotension. 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 Does have microvascular changes BPH: Patient currently tolerating Flomax given during the morning. ADL and mobility deficits: Patient ambulating with wide-based quad cane, improving with ADLs. Continue therapy interventions to improve patient's ability to ambulate and perform ADLs with the least amount of assistance as possible. We will make decision regarding DME on Monday prior to discharge. All records, vitals, labs and medications were reviewed. No other issues per patient, nursing or therapy. Objective - Exam Narrative Exam: MUSCULOSKELETAL SPECIALTY EXAM CONSTITUTIONAL: Well developed, well nourished, appropriately groomed. RIGHT hand dominant. RESPIRATORY: Clear to auscultation bilaterally, no increased work of breathing CARDIOVASCULAR: Regular rate and rhythm currently, no swelling, edema or tenderness in BUE or BLE. All extremities warm. GI: + bowel sounds, soft, NTTP, nondistended. INTEGUMENTARY: Normal, no lesion, rash, masses or bruising noted in extremities. MUSCULOSKELETAL: BUE and BLE normal without defect, crepitus, subluxation, effusion, arthritic changes or TTP. SA EF WE EE FF FA HF KE ADF EHL APF R 5/5 throughout L 4+/5 4+/5 4+/5 4+/5 4+/5 4+/5 4/5 4-/5 4/5 4/5 4/5 ROM within normal limit Tone within normal limit NEURO: CN VII : Left facial droop, improved CN XII : Tongue protrudes slightly left Sensation intact in all extremities without extinction. No tremor noted in 4 extremities. Naming and repetition intact. Follows 2 step commands. Aphasia not appreciated Dysarthria not appreciated Dysphagia not appreciated Neglect not appreciated POSTURE and GAIT: Sitting posture fair. Walking still has a little bit of sway with an occasional loss of balance but patient is able to correct and compensate. PSYCH: Alert, oriented x3, affect appears euthymic, emotional lability seems to have cleared. Insight appears intact. - Constitutional Vitals: Vital Signs - 12hr 10/13/21 10/13/21 10/13/21 12:00 12:08 16:00 Temperature 98.0 F 97.5 F L Pulse Rate 90 62 64 Pulse Rate [ 90 Apical] Respiratory 18 Rate Blood Pressure 115/75 Blood Pressure 111/73 [Right] O2 Sat by Pulse 98 99 98 Oximetry - Allied health notes Allied health notes reviewed: nursing, PT, OT FIMS assessment as documented by PT/OT/ST: Locomotion- walk/wheelchair Ambulation Distance 100 - Labs CBC & Chem 7: 10/07/21 13:09 10/07/21 13:09 Labs: Laboratory Results - last 72 hr 10/10/21 10/11/21 10/11/21 20:31 11:53 16:26 POC Glucose 145 H 144 H 189 H 10/11/21 10/12/21 10/12/21 20:47 07:26 11:54 POC Glucose 178 H 141 H 211 H 10/12/21 10/12/21 10/13/21 15:44 20:51 11:06 POC Glucose 66 L 168 H 268 H 10/13/21 15:49 POC Glucose 64 L Assessment and Plan CVA: Continue Secondary Stroke Prevention (Antithrombotic, Statin (Goal LDL-C <70), BP control (Goal <140/90), GLU control (Goal A1c <7), and lifestyle modification). Monitor for recurrent stroke or post-stroke recrudescence. Continue neuromotor therapy as above. Family training when available. Monitor for post stroke depression, cognitive deficits, seizure, dysphagia, aphasia, shoulder hand syndrome, sensory deficits, spasticity, bowel/bladder deficits, sleep disturbance, vision deficits and DVT. Prognosis for recovery and Secondary Stroke Prevention discussed at length along with necessity of maintaining compliance with medications. Follow up with Neurology. No driving until cleared by Neurologist. Paroxysmal atrial fibrillation: Appreciate cardiology input on the acute care side. We will maintain telemetry while patient is in-house. Continue Eliquis. Patient will need to follow-up with cardiology as an outpatient. Continue rate control with metoprolol. Monitor for any signs of worsening cardiac distress, chest pain, palpitations. Single 3-second pause overnight while in A. fib, converted back to normal sinus rhythm currently Diabetes: Continue home metformin. Patient does state that he has been compliant with metformin dosing at home and yet his A1c is still elevated at 7.5%. Doing well on glimepiride/metformin combo. Continue carb controlled diet, adjust medications as needed. Sliding scale insulin discontinued Hypertension: Continue metoprolol, blood pressure has been elevated and heart rate will not tolerate increases in metoprolol currently. Continue low-dose amlodipine and monitor blood pressure. Adjust medications as needed for normotension. Hold for hypotension. Goal SBP <140 BPH: Start Flomax and monitor Low back pain: Seems resolved, continue to monitor Hypokalemia: Resolved Volume depletion: Encouraged oral intake. 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 Patient does have microvascular changes. Continue to monitor ADL dysfunction: OT will work on improving ability to perform ADLs (including assistive devices) to increase independence and decrease caregiver burden and improve functional transfers and mobility training. Difficulty walking: PT will work on gait training and proper use of assistive devices and advance as appropriate to use of stairs and outside ambulation on uneven surfaces. Unsteadiness on feet: PT will work on improving static and dynamic sitting and standing balance as well as proper use of assistive devices to decrease risk of falls. Abnormality of gait: PT will work to improve safety and efficiency of gait through neuromotor training and gait training along with instruction on proper use of assistive devices. Muscle weakness: PT & OT will work on strengthening exercises to improve fun ctional strength including mixture of closed and open kinetic chain exercises. Debility: PT & OT will work on improving overall functional status to improve participation with ADLs, mobility and social involvement. Fatigue: PT & OT will work on improving endurance through aerobic exercises and therapeutic activity while monitoring patients tolerance for activity and vital signs as needed. DVT ppx: Eliquis Pain: Continue physical modalities in therapy and pain medications as needed to achieve functional pain control. Sleep: Monitor and address as needed. Bowel: Monitor and address as needed. Appetite: Monitor and address as needed. Discharge planning: Pending therapy progress and care plan meeting. Will continue discussion with therapy team, SW, patient and family. Look to melba hung with home health and family in [facility]. Will discharge with a rolling walker, tub transfer bench, 3 in 1 Restrictions/ Precautions: Falls, A. fib WB status: FWB Functional Hx: ADLs: Independent Cognition: Independent Mobility: No AD Barriers to Discharge: Decreased mobility and ability to perform self care, balance deficits, weakness Estimated Length of Stay: 1418 days Discharge Destination: Home with family, now stating he will go home with his sister in [facility]
--- NOTE | 2021-10-14 07:52 | Discharge Summary ---
Providers - Providers Date of Admission: 10/01/21 17:29 Date of discharge: 10/14/21 Attending physician: LOGAN ROBERTS III, MD 10/01/21 16:21 Occupational Therapy Evaluate and Treat [CONS] Routine Comment: Reason For Exam: ADL dysfunction Physical Therapy Evaluation and Treat [CONS] Routine Comment: Reason For Exam: Mobility Dysfunction 10/01/21 16:39 Consult to Case Management [CONS] Routine Services Needed at Discharge: Home Health Services Notified:: CASE MANAGEMENT Consult to Dietitian/Nutrition [CONS] Routine Physician Instructions: Reason For Exam: Reason for Consult: Diet education 10/04/21 07:00 Speech Therapy Evaluation and Treat [CONS] Routine Reason For Exam: CVA, Assess/Treat Cognition Primary care physician: Dr. Morales Fields Hospitalization Reason for admission: CVA Condition: Good Hospital course: 71-year-old male who had a abrupt onset of weakness on the left nondominant side starting in the leg. His friend was on her way to pick him up for a scheduled appointment and after not having a response at the door she called 911 and paramedics found the patient with left-sided weakness. He was brought to the ER where he quickly underwent administration of tPA with resolution of some symptoms. Head CT showed no acute intracranial abnormality, chronic focal infarcts in the right frontal and left occipital lobe with moderate volume loss and chronic white matter changes. Head and neck CTA showed no occlusions or significant stenosis. Carotid Doppler showed less than 50% stenosis bilaterally. Repeat head CT 24 hours after tPA administration showed no evidence of hemorrhage and similar picture as prior CT. Brain MRI on 09 30 showed acute to subacute ischemic infarct in the right ANNA distribution, chronic focal infarct in the right frontal lobe and left occipital lobe, mild diffuse volume loss, moderate chronic microangiopathy bilaterally. According to the patient reportedly from medical records the patient was noncompliant with medications for atrial fibrillation which had recently been diagnosed. He stopped taking aspirin and Coumadin and at one point was taking Coumadin and Eliquis at the same time unbeknownst to his physician. His diabetes is somewhat controlled with an A1c of 7.5. Total cholesterol 164, LDL 96, HDL 52, triglycerides 136. He went into A. fib with RVR during his work-up, cardiology was consulted. Neurology was also consulted. Due to the patient's issues with prior medications, neurology recommend starting Plavix. Cardiology recommending using Eliquis which we will start on Monday. 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 CVA: Continue Secondary Stroke Prevention (Antithrombotic, Statin (Goal LDL-C <70), BP control (Goal <140/90), GLU control (Goal A1c <7), and lifestyle modification). Monitor for recurrent stroke or post-stroke recrudescence. Continue neuromotor therapy as above. Family training when available. Monitor for post stroke depression, cognitive deficits, seizure, dysphagia, aphasia, shoulder hand syndrome, sensory deficits, spasticity, bowel/bladder deficits, sleep disturbance, vision deficits and DVT. Prognosis for recovery and Secondary Stroke Prevention discussed at length along with necessity of maintaining compliance with medications. Follow up with Neurology. No driving until cleared by Neurologist. Paroxysmal atrial fibrillation: Appreciate cardiology input on the acute care side. We will maintain telemetry while patient is in-house. Continue Eliquis. Patient will need to follow-up with cardiology as an outpatient. Continue rate control with metoprolol. Monitor for any signs of worsening cardiac distress, chest pain, palpitations. Single 3-second pause Monday night while in A. fib, converted back to normal sinus rhythm currently Diabetes: Continue home metformin. Patient does state that he has been compliant with metformin dosing at home and yet his A1c is still elevated at 7.5%. Doing well on glimepiride/metformin combo. Continue carb controlled diet, adjust medications as needed. Sliding scale insulin discontinued Hypertension: Continue metoprolol, blood pressure has been elevated and heart rate will not tolerate increases in metoprolol currently. Continue low-dose amlodipine and monitor blood pressure. Adjust medications as needed for normotension. Hold for hypotension. Goal BP <140/90 BPH: Continue Flomax and monitor Low back pain: Seems resolved, continue to monitor Hypokalemia: Resolved Volume depletion: Encouraged oral intake. Resolved Questionable cognitive decline after CVA: SENIOR CLINICIAN states within normal limits. Patient does have microvascular changes. Patient initially brought up the issue of decreased memory since the stroke. Continue to monitor ADL dysfunction: OT will work on improving ability to perform ADLs (including assistive devices) to increase independence and decrease caregiver burden and improve functional transfers and mobility training. MOD I with ADLS, needs setup at times secondary to visual impairment Difficulty walking: PT will work on gait training and proper use of assistive devices and advance as appropriate to use of stairs and outside ambulation on uneven surfaces. Very stable with rolling walker, attempted advancing to cane however issues with instability were noted on a consistent basis. Disposition: 06 HOME HEALTH CARE SERVICE Final Discharge Diagnosis (Prints w/discharge instructions): CVA, atrial fibrillation, diabetes, hypertension, BPH Time spent for discharge: >36mins Core Measure Documentation - Palliative Care Palliative Care/ Comfort Measures: Not Applicable - Core Measures Any of the following diagnoses?: stroke - Stroke Discharge Requirements Statin for LDL = or >70 mg/dl on DC: Yes Anticoag for atrial fib/atrial flutter: Yes Antithrombotic for ischemic stroke: Yes Exam - Physical Exam Narrative exam: MUSCULOSKELETAL SPECIALTY EXAM CONSTITUTIONAL: Well developed, well nourished, appropriately groomed. RIGHT hand dominant. RESPIRATORY: Clear to auscultation bilaterally, no increased work of breathing CARDIOVASCULAR: Regular rate and rhythm currently, no swelling, edema or tenderness in BUE or BLE. All extremities warm. GI: + bowel sounds, soft, NTTP, nondistended. INTEGUMENTARY: Normal, no lesion, rash, masses or bruising noted in extremities. MUSCULOSKELETAL: BUE and BLE normal without defect, crepitus, subluxation, effusion, arthritic changes or TTP. SA EF WE EE FF FA HF KE ADF EHL APF R 5/5 throughout L 4+/5 4+/5 4+/5 4+/5 4+/5 4+/5 4/5 4-/5 4/5 4/5 4/5 ROM within normal limit Tone within normal limit NEURO: CN VII : Left facial droop, improved CN XII : Tongue protrudes slightly left Sensation intact in all extremities without extinction. No tremor noted in 4 extremities. Naming and repetition intact. Follows 2 step commands. Aphasia not appreciated Dysarthria not appreciated Dysphagia not appreciated Neglect not appreciated POSTURE and GAIT: Sitting posture fair. Walking still has a little bit of sway with an occasional loss of balance but patient is able to correct and compensate, more stable with rolling walker. PSYCH: Alert, oriented x3, affect appears euthymic, emotional lability seems to have cleared. Insight appears intact. - Constitutional Vitals: Temp Pulse Resp BP Pulse Ox 98.3 F 97 H 16 129/57 97 10/13/21 23:54 10/13/21 23:54 10/13/21 23:54 10/13/21 23:54 10/13/21 23:54 Plan Activity: advance as tolerated, no driving until cleared by PCP, fall precautions Diet: diabetic (Heart healthy) Special Instructions: record daily BP diary, record blood sugar diary, physical therapy, occupational therapy, home health RN Durable Medical Equipment Needed Upon Discharge: Walker-Rolling, Bedside Commode, other (Tub transfer bench) Care Plan Goals: Patient will need to follow-up with his primary care doctor for further medical management of his chronic medical conditions. While in the hospital we started glimepiride with better glucose control in addition to his home metformin dose. Patient's glucose has been fairly well controlled with the addition of the new medication. Patient was also started on a low-dose amlodipine for blood pressure control. Would have preferred to have stuck with increasing metoprolol however his heart rate is often in the low 60s so another alternative was started. Discussed at length with the patient that he needs to continue taking medications for secondary stroke prevention and the importance of taking these. Based on the recommendations from cardiology and neurology, he was placed on Plavix and Eliquis. Hemoglobin and platelets have been stable with no signs of bleeding. Patient was also started on Flomax for symptoms of BPH. 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 Recommend following up with neurologist of patient's choice in 4-6 weeks for further monitoring and management of CVA. Discussed with the patient that ophthalmology will likely not consider him for cataract surgery until he is a little further out from the CVA. At the point they do want to schedule him for cataract surgery he will need clearance from cardiology for holding Eliquis. From a rehab standpoint, the patient did very well with therapy and is modified independent with most ADLs. Still has some issues with transfers and balance while ambulating at times and is safest with a rolling walker currently. We attempted several times to advance him to the level of cane however balance always became an issue. Some of this may continue to improve once he has his cataracts corrected. Follow up with: MORALES FIELDS MD [Referring] - 7 Days (PCP - follow up for medical management s/p CVA, with Afib, HTN, DM) Prescriptions: AtorvaSTATin [Lipitor] 40 mg PO QHS #30 tablet Apixaban [Eliquis] 5 mg PO Q12HR #60 tablet Tamsulosin [Flomax] 0.4 mg PO QDAY 30 Days #30 cap Glimepiride 1 mg PO DAILY 30 Days #30 tab metFORMIN [Glucophage] 1,000 mg PO BIDDIAB #60 tablet Metoprolol [Lopressor TAB] 25 mg PO BID #60 tablet Amlodipine Besylate [Norvasc] 2.5 mg PO DAILY 30 Days #30 tab Famotidine [Pepcid] 20 mg PO QDAY #30 tablet Clopidogrel [Plavix] 75 mg PO QDAY #30 tablet
[2021-10-14 08:59] VITALS: BP 139/81
[2021-10-14] MEDS: TAMSULOSIN 0.4 MG CAP PO SCH (11:25)
[2021-10-14] MEDS: metFORMIN 500 MG TAB PO SCH (11:26)
[2021-10-14] MEDS: CLOPIDOGREL 75 MG TAB PO SCH (11:27)
[2021-10-14] MEDS: FAMOTIDINE 20 MG TAB PO SCH (11:29)
[2021-10-14] MEDS: GLIMEPIRIDE 2 MG TAB PO SCH (11:29)
[2021-10-14] MEDS: amLODIPine 5 MG TAB PO SCH (11:30)
[2021-10-14] MEDS: METOPROLOL TARTRATE 25 MG TAB PO SCH (11:32)
[2021-10-14] MEDS: APIXABAN 5 MG TAB PO SCH (11:35)
== END 2021-10-14 12:00 | disposition home or self-care (01) | DRG 57 ==
LOC: 3A 14:03 → UNDOADMIN 14:03 → 4A 17:29
PROVIDERS: ADMIT Physical Medicine & Rehabilitation; ATTEND Physical Medicine & Rehabilitation
DX: I69.354 Hemiplegia and hemiparesis following cerebral infarction affecting left non-dominant side (principal); E11.9 Type 2 diabetes mellitus without complications; I10 Essential (primary) hypertension; I48.0 Paroxysmal atrial fibrillation; E87.6 Hypokalemia; E86.9 Volume depletion, unspecified; R26.81 Unsteadiness on feet; R53.83 Other fatigue; R53.81 Other malaise; N40.0 Benign prostatic hyperplasia without lower urinary tract symptoms; M54.9 Dorsalgia, unspecified; Z83.3 Family history of diabetes mellitus; Z82.49 Family history of ischemic heart disease and other diseases of the circulatory system; Z79.82 Long term (current) use of aspirin; Z79.4 Long term (current) use of insulin
CPT/HCPCS: 36415; 80048; 80053; 82962; 85025; 85027; 94640; G0378; Q9967; J1815